=== PATIENT | male | born 1955 | race Caucasian/White ===

== ENCOUNTER 2024-04-17 00:03 | Observation (INO) | payer MEDICARE, MEDICAID, SELFPAY ==
[2024-04-17] VITALS (23 sets, daily range): BP systolic 102–136; BP diastolic 48–71; PULSE 50–83; RESP 16–23; TEMP 35.8–36.6; O2SAT 89–100; BMI 23.5
--- NOTE | ~2024-04-17 | XR_ITS ---
EXAMINATION: XR chest 1V portable DATE: 04/17/2024 01:05 INDICATION: Shortness of breath. Hypoxia. TECHNIQUE: frontal view of the chest was obtained. COMPARISON: None FINDINGS: Elevation the right hemidiaphragm with curvilinear basilar atelectasis paralleling the right hemidiap hragm. More patchy opacities in the medial left lower lung zone and small opacity lateral right midlu ng zone which could represent atelectasis or pneumonia. No pulmonary edema, pleural effusion or pneum othorax. Cardiomegaly. Of the ventriculoperitoneal shunt catheter projects across the right neck, [address] and visualized abdomen. IMPRESSION: 1. Elevation right hemidiaphragm with right basilar atelectasis. 2. Additional opacities in the retrocardiac left lower lung zone and at the lateral right midlung zon e which could represent additional atelectasis or pneumonia. 3. Cardiomegaly. Reviewed, dictated and finalized at location A. IMPRESSION: 1. Elevation right hemidiaphragm with right basilar atelectasis. 2. Additional opacities in the retrocardiac left lower lung zone and at the lat eral right midlung zone which could represent additional atelectasis or pneumon ia. 3. Cardiomegaly.
--- NOTE | 2024-04-17 00:44 | ECG_ITS ---
Test Date: 2024-04-17 01:24:15 Measurements Intervals [place] Rate: 75 P: 56 SD: 188 QRS: 14 QRSD: 89 T: 30 QT: 368 QTc: 411 Interpretive Statements SINUS RHYTHM No previous ECG available for comparison Electronically Signed On 04-17-2024 16:20:07 CDT by Kristin Bo M.D.
[2024-04-17] MEDS: IPRATROPIUM 0.5 MG/ALBUTEROL SULFATE 2.5 MG AMPUL.NEB 3 ML INHALATION ×4 (01:00→20:08)
[2024-04-17 01:17] LABS: Alveolar/Arterial O2 Gradient 40.2 mmHg; Base Excess ABG -0.8 mEq/l (+/-2.0); Device NASAL CANNULA; Fractional Inspired Oxygen 28 %; HCO3 ABG 24.6 mEq/l (22.0-26.0); Modified Allen's Test Pass; Oxygen Content ABG 19.6 %vol (16.0-22.0); Oxygen Saturation ABG 97.8 % (95.0-100.0); Oxyhemoglobin 97.6 % THb (90.0-100.0); PCO2 ABG 43.8 mmHg (35.0-45.0); PO2 ABG 107.8 mmHg (80.0-100.0); PO2 FiO2 Ratio Arterial Blood 3.85 %; Site Drawn RIGHT RADIAL; Total Hemoglobin 14.2 g/dL (12.0-18.0); pH ABG 7.368 (7.350-7.450)
--- NOTE | 2024-04-17 01:20 | ED.GENADULT ---
HPI - General Adult General Chief complaint: Upper Respiratory Infection Stated complaint: possible covid Time Seen by Provider: 04/17/24 00:31 History of Present Illness HPI narrative: Patient is a 69-year-old gentleman who presents emergency department with chief complaint of shortness of breath and cough. Patient reports that he was exposed to COVID-19 reports that he is normally on oxygen at night but is poorly compliant with this the patient was exposed to a family member with COVID-19 and reports that he has been having increasing shortness of breath and also not acting his normal self family is concerned that he has developed COVID-19 patient has also had increasing cough Related Data Allergies Allergy/AdvReac Type Severity Reaction Status Date / Time No Known Allergies Allergy Verified 04/17/24 00:04 Review of Systems Review of Systems: A 10 system review of systems was completed on the patient and is negative except for what is stated in the HPI. Nursing and ancillary documentation was reviewed. Exam Narrative: GENERAL: Well-appearing, well-nourished, and in no acute distress. HEAD: Normocephalic, atraumatic. EYES: PERRLA and EOMI. ENT: Nares clear, no rhinorrhea or epistaxis. Mucous membranes moist. NECK: Supple. CHEST: Clear to auscultation. No respiratory distress. HEART: Regular rate and rhythm. No murmur heard. Normal peripheral pulses. ABDOMEN: Soft, nontender, nondistended, normal active bowel sounds. EXTREMITIES: Normal range of motion. No edema. SKIN: Warm, dry, no rash. NEURO: No focal deficits. Alert and oriented x3. PSYCH: Normal mood and affect. Course Vital Signs Vital signs: Vital Signs Temperature 36.6 C 04/17/24 00:09 Pulse Rate 83 04/17/24 00:09 Respiratory Rate 19 04/17/24 00:09 Blood Pressure 120/71 04/17/24 00:09 Pulse Oximetry 89 L 04/17/24 00:09 Oxygen Delivery Room Air 04/17/24 00:09 Temperature 36.6 C 04/17/24 00:09 Pulse Rate 73 04/17/24 02:02 Respiratory Rate 21 H 04/17/24 02:02 Blood Pressure 120/61 04/17/24 02:02 Pulse Oximetry 100 04/17/24 02:02 Oxygen Delivery Nasal Cannula 04/17/24 00:32 Oxygen Flow Rate 2 04/17/24 00:32 Medical Decision Making Vital Signs Vital Signs: Vital Signs Temperature 36.6 C 04/17/24 00:09 Pulse Rate 83 04/17/24 00:09 Respiratory Rate 19 04/17/24 00:09 Blood Pressure 120/71 04/17/24 00:09 Pulse Oximetry 89 L 04/17/24 00:09 Oxygen Delivery Room Air 04/17/24 00:09 Temperature 36.6 C 04/17/24 00:09 Pulse Rate 73 04/17/24 02:02 Respiratory Rate 21 H 04/17/24 02:02 Blood Pressure 120/61 04/17/24 02:02 Pulse Oximetry 100 04/17/24 02:02 Oxygen Delivery Nasal Cannula 04/17/24 00:32 Oxygen Flow Rate 2 04/17/24 00:32 Lab Data 04/17/24 01:05 04/17/24 01:05 Labs: Lab Results 04/17/24 04/17/24 Range/Units 01:05 02:21 WBC 8.4 (4.5-10.0) K/mm3 RBC 4.62 (4.6-6.20) M/mm3 Hgb 14.4 (14.0-18.0) g/dL Hct 44.1 (42.0-52.0) % MCV 95.5 (80-100) fl MCH 31.2 (26-34) pg MCHC 32.7 (32-36) g/dl RDW 12.8 (11.5-14.5) % Plt Count 205 (150-375) k/mm3 MPV 11.6 H (7.4-10.4) fl Immature Gran % (Auto) 0.6 H (0-0.5) % Neut % (Auto) 65.0 (45.5-73.1) % Lymph % (Auto) 21.0 (18.3-44.2) % Villalba % (Auto) 12.6 H (2.6-8.5) % Eos % (Auto) 0.2 (0-4.4) % Baso % (Auto) 0.6 (0.2-1.2) % Lymph # (Auto) 1.77 (0.9-3.2) K/mm3 Villalba # (Auto) 1.1 H (0.1-0.6) K/mm3 Eos # (Auto) 0.0 (0-0.3) K/mm3 Baso # (Auto) 0.1 (0.0-0.1) K/mm3 Abs Immat Gran (auto) 0.05 H (0.00-0.031) K/mm3 Absolute Neuts (auto) 5.5 (1.3-6.7) K/mm3 Absolute Nucleated RBC 0.000 (0.0-0.012) K/mm3 Nucleated RBC % 0.0 (0.0-0.2) % PT 14.6 (11.1-14.7) Seconds INR 1.1 APTT 33.3 (22.3-36.8) Seconds Sodium 141 (137-145) mmol/L Potassium 3.4 (3.4-5.0) mmol/L Chlori
[2024-04-17] MEDS: dexAMETHasone SOD PHOS INJ 10 MG/ML 1 ML VIAL 6 MG IV PUSH ×2 (01:30→09:33)
[2024-04-17 01:49] LABS: Basophils Absolute Auto 0.1 K/mm3 (0.0-0.1); Basophils Percent Auto 0.6 % (0.2-1.2); Eosinophils Percent Auto 0.2 % (0-4.4); Hematocrit 44.1 % (42.0-52.0); Hemoglobin 14.4 g/dL (14.0-18.0); Immature Granulocyte Absolute 0.05 K/mm3 (0.00-0.031); Immature Granulocyte Percent A 0.6 % (0-0.5); Lymphocytes Absolute Auto 1.77 K/mm3 (0.9-3.2); Mean Corpuscular HGB Conc 32.7 g/dl (32-36); Mean Corpuscular Hemoglobin 31.2 pg (26-34); Mean Corpuscular Volume 95.5 fl (80-100); Mean Platelet Volume 11.6 fl (7.4-10.4); Monocytes Absolute Auto 1.1 K/mm3 (0.1-0.6); Monocytes Percent Auto 12.6 % (2.6-8.5); Neutrophils Absolute Auto 5.5 K/mm3 (1.3-6.7); Platelet Count Result 205 k/mm3 (150-375); Red Blood Count 4.62 M/mm3 (4.6-6.20); Red Cell Distribution Width 12.8 % (11.5-14.5); White Blood Count 8.4 K/mm3 (4.5-10.0)
[2024-04-17 02:02] LABS: Alanine Aminotransferase 12 U/L (6-50); Albumin Level 4.3 g/dL (3.5-5.1); Alkaline Phosphatase 80 U/L (38-126); Anion Gap 11 mmol/L (4-12); Aspartate Amino Transferase 18 U/L (17-59); Bilirubin,Total 0.4 mg/dL (0.2-1.3); Blood Urea Nitrogen 17 mg/dL (9-20); Calcium 9.2 mg/dL (8.4-10.2); Carbon Dioxide 27 mmol/L (22-30); Chloride 103 mmol/L (98-107); Estimated CRCL calculation 56 ml/min; Estimated Glomerular Filt Rate > 60; Glucose 103 mg/dL (65-110); Lipase 69 U/L (23-300); Magnesium 2.1 mg/dL (1.6-2.3); Potassium 3.4 mmol/L (3.4-5.0); Sodium 141 mmol/L (137-145)
[2024-04-17 02:04] LABS: INR 1.1; Prothrombin Time 14.6 Seconds (11.1-14.7)
[2024-04-17 02:05] LABS: Partial Thromboplastin Time 33.3 Seconds (22.3-36.8)
[2024-04-17 02:13] LABS: NT Pro B Type Natriuretic Pept 131 pg/mL (19.9-100); Troponin I < 0.012 ng/mL (0.000-0.034)
[2024-04-17 02:25] LABS: Influenza A QL RT-PCR Negative (Negative); Influenza B QL RT-PCR Negative (Negative); RSV RNA, RT-PCR Negative (Negative); SARS-CoV-2 RNA PCR Positive (Negative)
--- NOTE | 2024-04-17 02:26 | PC.NURSE ---
Patient stuck multiple times by multiple RN's and provider. phlebotomy called to obtain remaining labs.
[2024-04-17 02:34] LABS: Add Urine Microscopic? YES; Appearance Urine Clear (Clear); Bacteria Urine None Seen /hpf; Bilirubin Urine Negative (Negative); Blood Urine Negative (Negative); Color Urine Yellow (Yellow); Glucose Urine UA Negative (Negative); Ketones Urine Trace mg/dL (Negative); Leukocyte Esterase Ur Negative LEU/UL (Negative); Nitrate Urine Negative (Negative); Non Pathogenic Casts 0-2; Protein Urine Trace mg/dL (Negative); RBC Urine 0-2 /hpf (0-2); Specific Grav Ur 1.036 (1.001-1.035); Squamous Epithelial Cell Urine None Seen /hpf (Few); Urobilinogen Urine 0.2 mg/dL (<2.0); WBC Urine 0-5 /hpf (0-3); pH Urine 5.5 (5.0-9.0)
--- NOTE | 2024-04-17 02:58 | PM.IMHP ---
H&P: HPI History of Present Illness Date/Time: 04/17/24 02:58 Chief Complaint: shortness of breath Narrative: This is a 69-year-old male with past medical history significant for traumatic brain injury, chronic respiratory failure on chronic supplemental oxygen and with no compliance, Alzheimer's dementia. Patient was brought to emergency room after complaining of shortness of breath and exposure to COVID-19 patient was tested positive for COVID-19 in emergency room he had a low oxygen saturation in the 80s requiring supplemental oxygen by nasal cannula. Patient had been in his usual state of health up until this point. Most of the history has been obtained from family member who is at bedside. EXAMINATION: XR chest 1V portable DATE: 04/17/2024 01:05 INDICATION: Shortness of breath. Hypoxia. TECHNIQUE: frontal view of the chest was obtained. COMPARISON: None FINDINGS: Elevation the right hemidiaphragm with curvilinear basilar atelectasis paralleling the right hemidiaphragm. More patchy opacities in the medial left lower lung zone and small opacity lateral right midlung zone which could represent atelectasis or pneumonia. No pulmonary edema, pleural effusion or pneumothorax. Cardiomegaly. Of the ventriculoperitoneal shunt catheter projects across the right neck, chest and visualized abdomen. IMPRESSION: 1. Elevation right hemidiaphragm with right basilar atelectasis. 2. Additional opacities in the retrocardiac left lower lung zone and at the lateral right midlung zone which could represent additional atelectasis or pneumonia. 3. Cardiomegaly. Review of Systems Review of Systems: shortness of breath [facility] Social History Social History Smoking status: Former smoker Alcohol intake: former Substance use: unknown Do You Feel Safe in your Home?: Yes Lack of Transportation: No Lack of Food: Never True Current Housing: I Have Housing Concerned About Future Housing: No Difficulty Paying Gas/Electric Bills: No Difficulty Paying for Meds: No Currently Unemployed: No Education: Don't Know Difficulty w/ Childcare or Family Care: No Spiritual care concerns: No Meds Home Medications and Allergies Home Medications Medication Instructions Recorded Confirmed Type Mucinex DM 600 mg Q12H 04/17/24 04/17/24 History aspirin 81 mg tablet,delayed 81 mg DAILY 04/17/24 04/17/24 History release carvedilol 6.25 mg tablet 6.25 mg BID 04/17/24 04/17/24 History furosemide 20 mg tablet 20 mg DAILY PRN Edema 04/17/24 04/17/24 History levetiracetam 500 mg tablet 500 mg PO BID 04/17/24 04/17/24 History losartan 50 mg tablet 50 mg DAILY 04/17/24 04/17/24 History pantoprazole 40 mg tablet,delayed 40 mg PO DAILY 04/17/24 04/17/24 History release Allergies Allergy/AdvReac Type Severity Reaction Status Date / Time No Known Allergies Allergy Verified 04/17/24 00:04 Vital Signs Vital Signs - 24 hr 04/17/24 00:09 04/17/24 00:32 04/17/24 01:01 Temperature 97.9 F Pulse Rate 83 80 Respiratory Rate 19 23 H Blood Pressure 120/71 Pulse Oximetry 89 L 99 Oxygen Delivery Room Air Nasal Cannula Oxygen Flow Rate 2 04/17/24 01:19 04/17/24 02:00 04/17/24 02:02 Temperature Pulse Rate 73 74 73 Respiratory Rate 22 H 19 21 H Blood Pressure 120/61 Pulse Oximetry 98 100 Oxygen Delivery Oxygen Flow Rate Exam Narrative: patient is laying in a stretcher Const: General: cooperative, comfortable, no acute distress, well developed, alert, awake, ill appearing chronically, average body habitus and well nourished Nutritional Appearance: average body habitus Orientation/consciousness: patient oriented x3 HENMT: Head: normal to inspection, normocephalic and atraumatic Ears: hearing grossly normal bilaterally Face/Nose/Sinus: normal facial exam Face and sinus: normal facial exam Eyes: General: appearance nor
[2024-04-17 03:10] LABS: Lactic Acid Reflex 0.7 mmol/L (0.7-2.0)
[2024-04-17 03:29] LABS: Procalcitonin 0.1 ng/mL
--- NOTE | 2024-04-17 04:27 | ADMGEN ---
This patient, Reginald Haile, was admitted to Medical Room 247-. Patient/family oriented to hospital policies and general routines including ID bracelet, bed and alarms, visiting hours, pain management, procedures, bathroom and other care routines, personal items, smoking policy, room service/diet, and visiting hours. Information on how to activate the Rapid Response Team has been discussed. Patient/Family are encouraged to report perceived risks to care and to ask questions if they do not understand what they are told or what they should do.
[2024-04-17 05:38] LABS: Troponin I < 0.012 ng/mL (0.000-0.034)
--- NOTE | 2024-04-17 07:31 | PM.IMPN ---
Progress Note: A&P Assessment and Plan (1) COVID-19: Code(s): U07.1 - COVID-19 Status: Acute (2) Hypoxic respiratory failure: Code(s): J96.91 - Respiratory failure, unspecified with hypoxia Status: Acute Plan (1) COVID-19: Code(s): U07.1 - COVID-19 Status: Acute Assessment and Plan: admit to [facility] patient started on Decadron 04/17 Chest x-ray showed Additional opacities in the retrocardiac left lower lung zone and at the lateral right midlung zone, patient also has hypoxemia, suspecting pneumonia due to your infection and COVID infection start remdesivir, azithromycin and ceftriaxone, continue Decadron IV Hypoxic respiratory failure: Code(s): J96.91 - Respiratory failure, unspecified with hypoxia Status: Acute Assessment and Plan: on supplemental oxygen by nasal cannula 2 L continuous pulse ox start DuoNeb, albuterol nebulizer p.r.n. cardiomegaly on chest x-ray Follow-up BMP and echocardiogram Subjective Date/time seen: 04/17/24 07:31 Interval history: patient has low temperature 96.5?, tachypnea, 2 L oxygen, patient feels better today, patient still confused, able to answer questions, no obvious distress Exam Narrative: GENERAL: Pleasant, in no acute distress. Well-nourished. - EYES: EOMI. Anicteric. - HENT: Moist mucous membranes. - LUNGS: Clear to auscultation bilaterally, coarse breath sound bilaterally - CARDIOVASCULAR: Regular rate and rhythm. No murmur. No JVD. - ABDOMEN: Soft, non-tender and non-distended. No palpable masses. - EXTREMITIES: No edema. Peripheral pulses 2+. Non-tender. - NEUROLOGIC: No focal neurological deficits. moving all extremities, - PSYCHIATRIC: Awake, Alert and not oriented x 3. Appropriate mood and affect. - SKIN: No rashes or lesions. Warm. - LYMPH: No cervical lymphadenopathy. Objective Data Vital Signs Vital Signs: Vital Signs - 24 hr 04/17/24 00:09 04/17/24 00:32 04/17/24 01:01 Temperature 97.9 F Pulse Rate 83 80 Respiratory Rate 19 23 H Blood Pressure 120/71 Pulse Oximetry 89 L 99 Oxygen Delivery Room Air Nasal Cannula Oxygen Flow Rate 2 04/17/24 01:19 04/17/24 02:00 04/17/24 02:02 Temperature Pulse Rate 73 74 73 Respiratory Rate 22 H 19 21 H Blood Pressure 120/61 Pulse Oximetry 98 100 Oxygen Delivery Oxygen Flow Rate 04/17/24 03:17 04/17/24 04:11 04/17/24 04:00 Temperature 97.8 F 96.5 F L Pulse Rate 61 63 58 L Respiratory Rate 19 20 Blood Pressure 136/63 103/48 L Pulse Oximetry 97 94 Oxygen Delivery Oxygen Flow Rate 04/17/24 05:00 Temperature Pulse Rate Respiratory Rate Blood Pressure Pulse Oximetry Oxygen Delivery Nasal Cannula Oxygen Flow Rate 2 Intake/Output Intake/Output: Intake & Output 04/14/24 04/15/24 04/16/24 04/17/24 23:59 23:59 23:59 23:59 Intake Total 100 Balance 100 Meds/Results Medications: Active Medications Generic Name Dose Route Start Last Admin Trade Name Freq PRN Reason Stop Dose Admin Albuterol/Ipratropium 3 ml 04/17/24 08:00 Ipratropium 0.5 Mg/Albuterol Sulfate 2.5 Mg Ampul.Neb 3 Ml INHALATION Q6HRT [facility] Dexamethasone Sodium Phosphate 6 mg 04/17/24 09:00 Dexamethasone Sod Phos Inj 10 Mg/Ml 1 Ml Vial IV PUSH 04/26/24 09:01 DAILY [facility] Radiology Results: ITS Impressions Chest X-Ray 04/17/24 07:13 IMPRESSION: 1. Elevation right hemidiaphragm with right basilar atelectasis. 2. Additional opacities in the retrocardiac left lower lung zone and at the lateral right midlung zone which could represent additional atelectasis or pneumonia. 3. Cardiomegaly. Labs Labs: Laboratory Results - last 24 hr 04/17/24 04/17/24 04/17/24 01:02 01:05 02:21 WBC 8.4 RBC 4.62 Hgb 14.4 Hct 44.1 MCV 95.5 MCH 31.2 MCHC 32.7 RDW 12.8 Plt Count 205 MPV 11.6 H Immature Gran % (Auto) 0.6 H Neut %
--- NOTE | 2024-04-17 07:41 | ECHO_ITS ---
Patient Info Name: Reginald Haile Age: 69 years : 1955 Gender: Male Ht: 68 in Wt: 159 lbs BSA: 1.87 m2 HR: 56 bpm Heart Rhythm: Sinus Rhythm Technical Quality: Fair Exam Date: 04/17/2024 12:01 PM Exam Location: Echo Lab Patient Status: Inpatient Admit Date: 04/17/2024 Staff Ordering Physician: Zaid Cole MD Editing Intern: Cameron Romero RDCS Attending Provider: Kendell Elam MD Exam Type: CA echo doppler color flow Study Info Indications - dyspnea, cardiomegaly Complete two-dimensional, color flow and Doppler transthoracic echocardiogram is performed. Summary 1. Complete two-dimensional, color flow and Doppler transthoracic echocardiogram is performed. 2. Left ventricular systolic function is normal, estimated at 50-55%. 3. The left ventricular diastolic function is grade II diastolic dysfunction. 4. Hypokinesis of anteroseptum. 5. There is trace mitral valve regurgitation. 6. There is trace tricuspid valve regurgitation. 7. No pulmonary hypertension, estimated pulmonary arterial systolic pressure is 20 mmHg. Left Ventricle Left ventricular chamber dimension is normal. Left ventricular systolic function is normal, estimated at 50-55%. There is no increased left ventricular wall thickness. The left ventricular diastolic function is grade II diastolic dysfunction. Right Ventricle Right ventricular chamber dimension is normal. Right ventricular systolic function is normal. Left Atria Left atrial chamber dimension is normal. Right Atria Right atrial chamber dimension is normal. Atrial Septum Intact interatrial septum visualized by 2D imaging. Aortic Valve The aortic valve is trileaflet. There is mild aortic valve sclerosis. There is no aortic valve stenosis. There is no aortic valve regurgitation. Pulmonic Valve The pulmonic valve is normal. There is no pulmonic valve stenosis. There is no pulmonic regurgitation. Mitral Valve The mitral valve has normal leaflets. There is no mitral valve stenosis. There is trace mitral valve regurgitation. Tricuspid Valve The tricuspid valve leaflets are normal. There is no significant tricuspid valve stenosis. There is trace tricuspid valve regurgitation. No pulmonary hypertension, estimated pulmonary arterial systolic pressure is 20 mmHg. Pericardium/Pleural The pericardium appears normal. There is no pericardial effusion. Aorta The aortic root size at the sinus of Valsalva is normal. The prox ascending aorta size is normal. Left Ventricular Outflow Tract Name Value Normal LVOT 2D LVOT Diameter 2.0 cm LVOT Doppler LVOT Peak Gradient 2 mmHg LVOT Mean Gradient 1 mmHg LVOT VTI 15 cm LVOT VTI/AV VTI Ratio 0.7 LVOT Stroke Volume 48 ml LVOT CO 3.0 l/min LVOT CI 1.6 l/min/m2 Pulmonic Valve Name Value Normal PV Doppler -------
[2024-04-17 09:06] LABS: Basophils Percent Auto 0.4 % (0.2-1.2); Hematocrit 43.5 % (42.0-52.0); Hemoglobin 13.6 g/dL (14.0-18.0); Immature Granulocyte Absolute 0.03 K/mm3 (0.00-0.031); Immature Granulocyte Percent A 0.3 % (0-0.5); Lymphocytes Absolute Auto 1.22 K/mm3 (0.9-3.2); Lymphocytes Percent Auto 12.9 % (18.3-44.2); Mean Corpuscular HGB Conc 31.3 g/dl (32-36); Mean Corpuscular Hemoglobin 31.1 pg (26-34); Mean Corpuscular Volume 99.5 fl (80-100); Mean Platelet Volume 11.6 fl (7.4-10.4); Monocytes Absolute Auto 0.4 K/mm3 (0.1-0.6); Monocytes Percent Auto 4.4 % (2.6-8.5); Neutrophils Absolute Auto 7.7 K/mm3 (1.3-6.7); Nucleated Red Blood Cells Perc 0.5 % (0.0-0.2); Platelet Count Result 164 k/mm3 (150-375); Red Blood Count 4.37 M/mm3 (4.6-6.20); Red Cell Distribution Width 12.9 % (11.5-14.5); White Blood Count 9.5 K/mm3 (4.5-10.0)
[2024-04-17 09:10] LABS: Anion Gap 8 mmol/L (4-12); Blood Urea Nitrogen 18 mg/dL (9-20); Calcium 9.2 mg/dL (8.4-10.2); Carbon Dioxide 28 mmol/L (22-30); Chloride 104 mmol/L (98-107); Estimated CRCL calculation 62 ml/min; Estimated Glomerular Filt Rate > 60; Glucose 130 mg/dL (65-110); Potassium 3.9 mmol/L (3.4-5.0); Sodium 140 mmol/L (137-145)
[2024-04-17 09:24] LABS: NT Pro B Type Natriuretic Pept 94 pg/mL (19.9-100)
[2024-04-17] MEDS: cefTRIAXone 2 GM/NS 100 ML 2 GM/100 ML BAG IVPB (09:34)
[2024-04-17] MEDS: REMDESIVIR 200 MG/NS 250 ML 200 MG/250 ML BAG 250 MG IVPB (10:26)
[2024-04-17] MEDS: AZITHROMYCIN 500 MG/NS 250 ML 500 MG/250 ML BAG 250 MG IVPB (11:47)
[2024-04-17] MEDS: levETIRAcetam 500 MG TABLET PO ×2 (13:02→21:07)
[2024-04-17] MEDS: FUROSEMIDE 20 MG TABLET PO (13:02)
[2024-04-17] MEDS: PANTOPRAZOLE 40 MG TABLET PO (13:02)
[2024-04-18] VITALS (14 sets, daily range): BP systolic 112–127; BP diastolic 71–79; PULSE 64–94; RESP 18–22; TEMP 36.3–36.4; O2SAT 92–100
[2024-04-18] MEDS: IPRATROPIUM 0.5 MG/ALBUTEROL SULFATE 2.5 MG AMPUL.NEB 3 ML INHALATION ×4 (01:55→20:36)
[2024-04-18 05:05] LABS: Basophils Percent Auto 0.2 % (0.2-1.2); Hematocrit 48.4 % (42.0-52.0); Hemoglobin 15.3 g/dL (14.0-18.0); Immature Granulocyte Absolute 0.07 K/mm3 (0.00-0.031); Immature Granulocyte Percent A 0.4 % (0-0.5); Lymphocytes Absolute Auto 1.15 K/mm3 (0.9-3.2); Mean Corpuscular HGB Conc 31.6 g/dl (32-36); Mean Corpuscular Hemoglobin 30.3 pg (26-34); Mean Corpuscular Volume 95.8 fl (80-100); Mean Platelet Volume 11.2 fl (7.4-10.4); Monocytes Absolute Auto 1.1 K/mm3 (0.1-0.6); Monocytes Percent Auto 6.9 % (2.6-8.5); Neutrophils Percent Auto 85.5 % (45.5-73.1); Platelet Count Result 196 k/mm3 (150-375); Red Blood Count 5.05 M/mm3 (4.6-6.20); Red Cell Distribution Width 12.9 % (11.5-14.5); White Blood Count 16.3 K/mm3 (4.5-10.0)
[2024-04-18 05:57] LABS: Anion Gap 12 mmol/L (4-12); Blood Urea Nitrogen 20 mg/dL (9-20); Calcium 9.4 mg/dL (8.4-10.2); Carbon Dioxide 28 mmol/L (22-30); Chloride 102 mmol/L (98-107); Estimated CRCL calculation 68 ml/min; Estimated Glomerular Filt Rate > 60; Glucose 77 mg/dL (65-110); Sodium 142 mmol/L (137-145)
--- NOTE | 2024-04-18 07:40 | PM.IMPN ---
Progress Note: A&P Assessment and Plan (1) COVID-19: Code(s): U07.1 - COVID-19 Status: Acute (2) Hypoxic respiratory failure: Code(s): J96.91 - Respiratory failure, unspecified with hypoxia Status: Acute Plan COVID-19: Code(s): U07.1 - COVID-19 Status: Acute Assessment and Plan: admit to med tele patient started on Decadron 04/17 Chest x-ray showed Additional opacities in the retrocardiac left lower lung zone and at the lateral right midlung zone, patient also has hypoxemia, suspecting pneumonia due to your infection and COVID infection started remdesivir, azithromycin and ceftriaxone on 04/17 continue remdesivir, azithromycin, ceftriaxone and Decadron today Hypoxic respiratory failure: Code(s): J96.91 - Respiratory failure, unspecified with hypoxia Status: Acute Assessment and Plan: on supplemental oxygen by nasal cannula 2 L continuous pulse ox start DuoNeb, albuterol nebulizer p.r.n. now pt is on 2 l o2 hypokalemia potassium 3.0 replete potassium chloride 40 meq p.o. 20 meq IV cardiomegaly on chest x-ray Follow-up BMP and echocardiogram 1. Complete two-dimensional, color flow and Doppler transthoracic echocardiogram is performed. 2. Left ventricular systolic function is normal, estimated at 50-55%. 3. The left ventricular diastolic function is grade II diastolic dysfunction. 4. Hypokinesis of anteroseptum. 5. There is trace mitral valve regurgitation. 6. There is trace tricuspid valve regurgitation. 7. No pulmonary hypertension, estimated pulmonary arterial systolic pressure is 20 mmHg. EKG shows sinus rhythm, no specific ST or T-wave changes follow-up per PCP may discharge patient in 1-2 days if condition continues to improve Subjective Date/time seen: 04/18/24 07:40 Interval history: I saw examined patient today, patient condition continued to improve, patient was eating breakfast in the chair. patient mental status improving, able to answer questions, no obvious distress Exam Narrative: GENERAL: Pleasant, in no acute distress. Well-nourished. - EYES: EOMI. Anicteric. - HENT: Moist mucous membranes. - LUNGS: Clear to auscultation bilaterally, coarse breath sound bilaterally - CARDIOVASCULAR: Regular rate and rhythm. No murmur. No JVD. - ABDOMEN: Soft, non-tender and non-distended. No palpable masses. - EXTREMITIES: No edema. Peripheral pulses 2+. Non-tender. - NEUROLOGIC: No focal neurological deficits. moving all extremities, - PSYCHIATRIC: Awake, Alert and not oriented x 3. Appropriate mood and affect. - SKIN: No rashes or lesions. Warm. - LYMPH: No cervical lymphadenopathy. Objective Data Vital Signs Vital Signs: Vital Signs - 24 hr 04/17/24 08:12 04/17/24 08:12 04/17/24 08:20 Temperature Pulse Rate 53 L 56 L Respiratory Rate 16 16 Blood Pressure Pulse Oximetry 96 Oxygen Delivery Nasal Cannula Oxygen Flow Rate 2 Fraction of Inspired Oxygen 28 04/17/24 08:15 04/17/24 13:54 04/17/24 13:54 Temperature Pulse Rate 64 66 Respiratory Rate 18 16 Blood Pressure Pulse Oximetry 97 96 Oxygen Delivery Nasal Cannula Nasal Cannula Oxygen Flow Rate 2 2 Fraction of Inspired Oxygen 28 28 04/17/24 14:01 04/17/24 08:00 04/17/24 12:00 Temperature Pulse Rate 62 50 L 53 L Respiratory Rate 16 Blood Pressure Pulse Oximetry Oxygen Delivery Oxygen Flow Rate Fraction of Inspired Oxygen 04/17/24 14:00 04/17/24 16:00 04/17/24 20:00 Temperature 97.5 F L Pulse Rate 69 67 73 Respiratory Rate 20 Blood Pressure 102/64 Pulse Oximetry 95 Oxygen Delivery Oxygen Flow Rate Fraction of Inspired Oxygen 04/17/24 22:00 04/17/24 20:00 04/17/24 20:20 Temperature 97.3 F L Pulse Rate 68 Respiratory Rate 18 Blood Pressure 106/66 Pulse Oximetry 99 96 96 Oxygen Delivery Nasal Cannula Nasal Cannula Oxygen Flow R
[2024-04-18] MEDS: POTASSIUM CHLORIDE 20 MEQ PACKET (FOR LIQUID) 40 MEQ PO (08:52)
[2024-04-18] MEDS: PANTOPRAZOLE 40 MG TABLET PO (08:55)
[2024-04-18] MEDS: ASPIRIN 81 MG ENTERIC TABLET PO (08:55)
[2024-04-18] MEDS: levETIRAcetam 500 MG TABLET PO ×2 (08:56→21:21)
[2024-04-18] MEDS: dexAMETHasone SOD PHOS INJ 10 MG/ML 1 ML VIAL 6 MG IV PUSH (10:58)
[2024-04-18] MEDS: cefTRIAXone 2 GM/NS 100 ML 2 GM/100 ML BAG IVPB (10:59)
[2024-04-18] MEDS: REMDESIVIR 100 MG/NS 250 ML 100 MG/250 ML BAG 250 MG IVPB (11:36)
[2024-04-18] MEDS: AZITHROMYCIN 500 MG/NS 250 ML 500 MG/250 ML BAG 250 MG IVPB (12:34)
[2024-04-18] MEDS: KCL 20MEQ/0.9% SOD CHL 1,000 ML 100 ML IV CONT (13:43)
--- NOTE | 2024-04-18 14:06 | PC.NURSE ---
Spoke with greenhouse grower regarding plurx specimens. The procedure cannot be done on the floor per policy. maintenance and utilities supervisor recommended requesting thoracentesis for testing. Will call provider.
--- NOTE | 2024-04-18 17:19 | PC.NURSE ---
Patient arrived to unit from ICU.
[2024-04-19] VITALS (14 sets, daily range): BP systolic 113–127; BP diastolic 47–71; PULSE 50–101; RESP 18–20; TEMP 36.4–36.6; O2SAT 91–95
[2024-04-19] MEDS: KCL 20MEQ/0.9% SOD CHL 1,000 ML 100 ML IV CONT (00:19)
[2024-04-19] MEDS: IPRATROPIUM 0.5 MG/ALBUTEROL SULFATE 2.5 MG AMPUL.NEB 3 ML INHALATION ×4 (02:16→19:28)
[2024-04-19] MEDS: SALINE LOCK FLUSH 10 ML IV PUSH ×3 (05:09→20:56)
[2024-04-19 05:24] LABS: Basophils Percent Auto 0.1 % (0.2-1.2); Hemoglobin 11.8 g/dL (14.0-18.0); Immature Granulocyte Absolute 0.04 K/mm3 (0.00-0.031); Immature Granulocyte Percent A 0.4 % (0-0.5); Lymphocytes Absolute Auto 1.52 K/mm3 (0.9-3.2); Lymphocytes Percent Auto 15.5 % (18.3-44.2); Mean Corpuscular HGB Conc 31.9 g/dl (32-36); Mean Corpuscular Hemoglobin 30.6 pg (26-34); Mean Corpuscular Volume 95.9 fl (80-100); Mean Platelet Volume 11.1 fl (7.4-10.4); Monocytes Absolute Auto 0.8 K/mm3 (0.1-0.6); Monocytes Percent Auto 8.5 % (2.6-8.5); Neutrophils Absolute Auto 7.4 K/mm3 (1.3-6.7); Neutrophils Percent Auto 75.5 % (45.5-73.1); Platelet Count Result 166 k/mm3 (150-375); Red Blood Count 3.86 M/mm3 (4.6-6.20); Red Cell Distribution Width 13.1 % (11.5-14.5); White Blood Count 9.8 K/mm3 (4.5-10.0)
[2024-04-19 05:39] LABS: Anion Gap 6 mmol/L (4-12); Blood Urea Nitrogen 18 mg/dL (9-20); Calcium 8.2 mg/dL (8.4-10.2); Carbon Dioxide 28 mmol/L (22-30); Chloride 108 mmol/L (98-107); Estimated CRCL calculation 76 ml/min; Estimated Glomerular Filt Rate > 60; Glucose 100 mg/dL (65-110); Sodium 142 mmol/L (137-145)
[2024-04-19] MEDS: cefTRIAXone 2 GM/NS 100 ML 2 GM/100 ML BAG IVPB (08:34)
[2024-04-19] MEDS: dexAMETHasone SOD PHOS INJ 10 MG/ML 1 ML VIAL 6 MG IV PUSH (08:47)
[2024-04-19] MEDS: PANTOPRAZOLE 40 MG TABLET PO (08:48)
[2024-04-19] MEDS: ASPIRIN 81 MG ENTERIC TABLET PO (08:48)
[2024-04-19] MEDS: levETIRAcetam 500 MG TABLET PO ×2 (08:48→20:56)
[2024-04-19] MEDS: REMDESIVIR 100 MG/NS 250 ML 100 MG/250 ML BAG 250 MG IVPB (09:13)
--- NOTE | 2024-04-19 11:32 | PM.IMPN ---
Progress Note: A&P Assessment and Plan (1) COVID-19: Code(s): U07.1 - COVID-19 Status: Acute (2) Hypoxic respiratory failure: Code(s): J96.91 - Respiratory failure, unspecified with hypoxia Status: Acute Plan 69-year-old male with past medical history significant for traumatic brain injury, chronic respiratory failure on chronic supplemental oxygen and with no compliance, Alzheimer's dementia. Patient was brought to emergency room after complaining of shortness of breath and exposure to COVID-19 patient was tested positive for COVID-19 in emergency room he had a low oxygen saturation in the 80s requiring supplemental oxygen by nasal cannula. 1. Acute on chronic hypoxic respiratory failure: Secondary to COVID-19 Continue with O2 support, currently on room air Chest x-ray showed Additional opacities in the retrocardiac left lower lung zone and at the lateral right midlung zone Continue with Decadron for 10 days Continue with remdesivir Continue with ceftriaxone, azithromycin Continue with albuterol as needed 2. History of seizure: Continue with Keppra 3. Code status: Full 4.DVT prophylaxis: Heparin subQ 5.Disposition: Pending improvement Time Spent With Patient Time with patient: 15 - 25 minutes Subjective Date/time seen: 04/19/24 11:32 Interval history: No acute events overnight, currently on room air Review of Systems Review of Systems: All systems reviewed & are unremarkable except as noted in HPI and below Exam Narrative: GENERAL: Pleasant, in no acute distress. Well-nourished. - EYES: EOMI. Anicteric. - HENT: Moist mucous membranes. - LUNGS: Clear to auscultation bilaterally, coarse breath sound bilaterally - CARDIOVASCULAR: Regular rate and rhythm. No murmur. No JVD. - ABDOMEN: Soft, non-tender and non-distended. No palpable masses. - EXTREMITIES: No edema. Peripheral pulses 2+. Non-tender. - NEUROLOGIC: No focal neurological deficits. moving all extremities, - PSYCHIATRIC: Awake, Alert and not oriented x 3. Appropriate mood and affect. - SKIN: No rashes or lesions. Warm. - LYMPH: No cervical lymphadenopathy. Objective Data Vital Signs Vital Signs: Vital Signs - 24 hr 04/18/24 13:37 04/18/24 13:37 04/18/24 13:43 Temperature Pulse Rate 84 94 Respiratory Rate 20 20 Blood Pressure Pulse Oximetry 92 Oxygen Delivery Room Air Oxygen Flow Rate Fraction of Inspired Oxygen 21 04/18/24 14:00 04/18/24 20:36 04/18/24 20:40 Temperature 97.6 F Pulse Rate 81 83 Respiratory Rate 22 H 19 Blood Pressure 127/71 Pulse Oximetry 96 94 Oxygen Delivery Nasal Cannula Oxygen Flow Rate 2 Fraction of Inspired Oxygen 28 04/18/24 20:46 04/18/24 22:00 04/19/24 02:16 Temperature 97.6 F Pulse Rate 83 64 64 Respiratory Rate 19 18 19 Blood Pressure 112/79 Pulse Oximetry 100 Oxygen Delivery Oxygen Flow Rate Fraction of Inspired Oxygen 04/19/24 02:22 04/19/24 06:00 04/19/24 07:38 Temperature 97.8 F Pulse Rate 64 101 H Respiratory Rate 20 18 Blood Pressure 127/71 Pulse Oximetry 94 95 Oxygen Delivery Nasal Cannula Oxygen Flow Rate 2 Fraction of Inspired Oxygen 04/19/24 07:38 04/19/24 07:52 04/19/24 08:48 Temperature Pulse Rate 50 L 52 L Respiratory Rate 20 20 Blood Pressure Pulse Oximetry Oxygen Delivery Room Air Oxygen Flow Rate Fraction of Inspired Oxygen Intake/Output Intake/Output: Intake & Output 04/16/24 04/17/24 04/18/24 04/19/24 23:59 23:59 23:59 23:59 Intake Total 1010 2060 240 Output Total 150 395 Balance 860 1665 240 Meds/Results Medications: Active Medications Generic Name Dose Route Start Last Admin Trade Name Freq PRN Reason Stop Dose Admin Acetaminophen 650 mg 04/17/24 20:20 Acetaminophen 325 Mg Tablet PO Q6H PRN Mild Pain (1-3) or Fever Albuterol 2.5 mg 04/17/24 07:41 Albuterol Sulfate Neb 2.5 Mg/3 Ml Inh NE
[2024-04-19] MEDS: AZITHROMYCIN 250 MG TABLET 500 MG PO (12:59)
[2024-04-19] MEDS: HEPARIN SODIUM 5,000 UNITS/ML VIAL 5000 UNITS SUB-Q ×2 (13:00→20:56)
[2024-04-20] VITALS (7 sets, daily range): BP systolic 120–133; BP diastolic 51–58; PULSE 54–91; RESP 18–20; TEMP 36.6–37.1; O2SAT 90–100
[2024-04-20] MEDS: SALINE LOCK FLUSH 10 ML IV PUSH ×3 (05:17→21:15)
[2024-04-20] MEDS: HEPARIN SODIUM 5,000 UNITS/ML VIAL 5000 UNITS SUB-Q ×3 (05:17→21:08)
[2024-04-20 05:36] LABS: Basophils Percent Auto 0.1 % (0.2-1.2); Hematocrit 36.6 % (42.0-52.0); Hemoglobin 11.4 g/dL (14.0-18.0); Immature Granulocyte Absolute 0.02 K/mm3 (0.00-0.031); Immature Granulocyte Percent A 0.2 % (0-0.5); Lymphocytes Absolute Auto 1.89 K/mm3 (0.9-3.2); Lymphocytes Percent Auto 22.4 % (18.3-44.2); Mean Corpuscular HGB Conc 31.1 g/dl (32-36); Mean Corpuscular Hemoglobin 29.8 pg (26-34); Mean Corpuscular Volume 95.8 fl (80-100); Mean Platelet Volume 11.7 fl (7.4-10.4); Monocytes Absolute Auto 0.9 K/mm3 (0.1-0.6); Monocytes Percent Auto 10.5 % (2.6-8.5); Neutrophils Absolute Auto 5.6 K/mm3 (1.3-6.7); Neutrophils Percent Auto 66.8 % (45.5-73.1); Platelet Count Result 155 k/mm3 (150-375); Red Blood Count 3.82 M/mm3 (4.6-6.20); White Blood Count 8.5 K/mm3 (4.5-10.0)
[2024-04-20 05:47] LABS: Anion Gap 5 mmol/L (4-12); Blood Urea Nitrogen 15 mg/dL (9-20); Calcium 8.5 mg/dL (8.4-10.2); Carbon Dioxide 29 mmol/L (22-30); Chloride 106 mmol/L (98-107); Estimated CRCL calculation 76 ml/min; Estimated Glomerular Filt Rate > 60; Glucose 107 mg/dL (65-110); Potassium 3.5 mmol/L (3.4-5.0); Sodium 140 mmol/L (137-145)
[2024-04-20] MEDS: IPRATROPIUM 0.5 MG/ALBUTEROL SULFATE 2.5 MG AMPUL.NEB 3 ML INHALATION ×2 (07:38→13:19)
[2024-04-20] MEDS: ASPIRIN 81 MG ENTERIC TABLET PO (08:01)
[2024-04-20] MEDS: PANTOPRAZOLE 40 MG TABLET PO (08:01)
[2024-04-20] MEDS: AMOXICILLIN/CLAVULANATE K 875-125 MG TAB 1 TABLET PO ×2 (08:01→21:07)
[2024-04-20] MEDS: levETIRAcetam 500 MG TABLET PO ×2 (08:01→21:07)
[2024-04-20] MEDS: dexAMETHasone SOD PHOS INJ 10 MG/ML 1 ML VIAL 6 MG IV PUSH (08:01)
[2024-04-20] MEDS: POTASSIUM CHLORIDE 20 MEQ ER TABLET 40 MEQ PO (09:35)
[2024-04-20] MEDS: REMDESIVIR 100 MG/NS 250 ML 100 MG/250 ML BAG 250 MG IVPB (09:37)
--- NOTE | 2024-04-20 10:48 | PM.IMPN ---
Progress Note: A&P Assessment and Plan (1) COVID-19: Code(s): U07.1 - COVID-19 Status: Acute Assessment and Plan: Continue remdesivir and dexamethasone, patient currently on room air, plan to discharge tomorrow Losartan has been on hold due to lower blood pressures, consider discontinuation on discharge (2) Hypoxic respiratory failure: Code(s): J96.91 - Respiratory failure, unspecified with hypoxia Status: Acute Assessment and Plan: See above Plan 69-year-old male with past medical history significant for traumatic brain injury, chronic respiratory failure on chronic supplemental oxygen and with no compliance, Alzheimer's dementia. Patient was brought to emergency room after complaining of shortness of breath and exposure to COVID-19 patient was tested positive for COVID-19 in emergency room he had a low oxygen saturation in the 80s requiring supplemental oxygen by nasal cannula. 1. Acute on chronic hypoxic respiratory failure: Secondary to COVID-19 Continue with O2 support, currently on room air Chest x-ray showed Additional opacities in the retrocardiac left lower lung zone and at the lateral right midlung zone Continue with Decadron for 10 days Continue with remdesivir Continue with ceftriaxone, azithromycin Continue with albuterol as needed 2. History of seizure: Continue with Keppra 3. Code status: Full 4.DVT prophylaxis: Heparin subQ 5.Disposition: Discharge tomorrow Time Spent With Patient Time with patient: 25 - 35 minutes Subjective Date/time seen: 04/20/24 10:48 Interval history: No acute events overnight, currently on room air. 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 We will plan to continue remdesivir tomorrow and discharge tomorrow. Review of Systems Review of Systems: All systems reviewed & are unremarkable except as noted in HPI and below Exam Narrative: GENERAL: Pleasant, in no acute distress. Well-nourished. - EYES: EOMI. Anicteric. - HENT: Moist mucous membranes. - LUNGS: Clear to auscultation bilaterally, coarse breath sound bilaterally - CARDIOVASCULAR: Regular rate and rhythm. No murmur. No JVD. - ABDOMEN: Soft, non-tender and non-distended. No palpable masses. - EXTREMITIES: No edema. Peripheral pulses 2+. Non-tender. - NEUROLOGIC: No focal neurological deficits. moving all extremities, - PSYCHIATRIC: Awake, Alert and not oriented x 3. Appropriate mood and affect. - SKIN: No rashes or lesions. Warm. - LYMPH: No cervical lymphadenopathy. Objective Data Vital Signs Vital Signs: Vital Signs - 24 hr 04/19/24 13:13 04/19/24 13:25 04/19/24 14:00 Temperature 36.5 C Pulse Rate 59 L 61 93 Respiratory Rate 20 20 20 Blood Pressure 113/47 L Pulse Oximetry 91 Oxygen Delivery Oxygen Flow Rate Fraction of Inspired Oxygen 04/19/24 15:11 04/19/24 19:28 04/19/24 19:33 Temperature Pulse Rate 60 Respiratory Rate 18 Blood Pressure Pulse Oximetry 93 Oxygen Delivery Room Air Room Air Oxygen Flow Rate Fraction of Inspired Oxygen 04/19/24 19:24 04/19/24 19:35 04/19/24 21:08 Temperature 36.4 C Pulse Rate 68 65 63 Respiratory Rate 18 18 20 Blood Pressure 116/52 L Pulse Oximetry 93 Oxygen Delivery Oxygen Flow Rate Fraction of Inspired Oxygen 04/19/24 20:00 04/19/24 22:26 04/20/24 06:00 Temperature 37.1 C Pulse Rate 91 Respiratory Rate 20 Blood Pressure 133/52 L Pulse Oximetry 93 100 Oxygen Delivery Room Air Nasal Cannula Oxygen Flow Rate 2 Fraction of Inspired Oxygen 04/20/24 08:01 04/20/24 07:38 04/20/24 07:38 Temperature Pulse Rate 54 L Respiratory Rate 18 Blood Pressure Pulse Oximetry 93 Oxygen Delivery Room Air Room Air Oxygen Flow Rate Fraction of Inspired Oxygen 21 04/20/24 07:48 Temperature Pulse Rate 56 L Respiratory Rate 18 Blood Pressure Pul
[2024-04-20] MEDS: carvediloL 6.25 MG TABLET PO (21:07)
[2024-04-21 05:12] VITALS: BP 153/62; PULSE 54; RESP 18; TEMP 36.5; O2SAT 93
[2024-04-21] MEDS: HEPARIN SODIUM 5,000 UNITS/ML VIAL 5000 UNITS SUB-Q (05:46)
[2024-04-21] MEDS: SALINE LOCK FLUSH 10 ML IV PUSH (05:47)
[2024-04-21 06:09] LABS: INR 1.2; Prothrombin Time 15.4 Seconds (11.1-14.7)
[2024-04-21 06:10] LABS: Alanine Aminotransferase 17 U/L (6-50); Albumin Level 3.6 g/dL (3.5-5.1); Alkaline Phosphatase 56 U/L (38-126); Aspartate Amino Transferase 24 U/L (17-59); Bilirubin,Total 0.2 mg/dL (0.2-1.3)
[2024-04-21 07:28] VITALS: PULSE 68; RESP 18; O2SAT 97
[2024-04-21] MEDS: IPRATROPIUM 0.5 MG/ALBUTEROL SULFATE 2.5 MG AMPUL.NEB 3 ML INHALATION ×2 (07:29→14:02)
[2024-04-21 07:47] VITALS: PULSE 66; RESP 18
[2024-04-21 09:27] VITALS: PULSE 70
[2024-04-21] MEDS: PANTOPRAZOLE 40 MG TABLET PO (09:27)
[2024-04-21] MEDS: carvediloL 6.25 MG TABLET PO (09:27)
[2024-04-21] MEDS: ASPIRIN 81 MG ENTERIC TABLET PO (09:28)
[2024-04-21] MEDS: AMOXICILLIN/CLAVULANATE K 875-125 MG TAB 1 TABLET PO ×2 (09:28→12:47)
[2024-04-21] MEDS: levETIRAcetam 500 MG TABLET PO (09:28)
[2024-04-21] MEDS: dexAMETHasone SOD PHOS INJ 10 MG/ML 1 ML VIAL 6 MG IV PUSH (09:28)
[2024-04-21] MEDS: REMDESIVIR 100 MG/NS 250 ML 100 MG/250 ML BAG 250 MG IVPB (11:43)
--- NOTE | 2024-04-21 12:33 | PM.DS ---
DS: Admitting Diagnosis Discharge Date 04/21/2024 Admitting Diagnosis Acute respiratory failure with hypoxia secondary to COVID Pneumonia DS: Discharge Diagnosis Discharge Diagnosis (1) COVID-19: Code(s): U07.1 - COVID-19 Status: Acute (2) Hypoxic respiratory failure: Code(s): J96.91 - Respiratory failure, unspecified with hypoxia Status: Acute DS: Summary Hospital Course Reason for hospitalization: Acute respiratory failure with hypoxia secondary to COVID Pneumonia Hospital Course: Patient was a 69-year-old male who was admitted to the medical unit with acute respiratory failure with hypoxia secondary to COVID-19 pneumonia. He was treated with remdesivir, Decadron azithromycin Rocephin and supplemental oxygen. Chest x-ray did showed additional opacities in the retrocardiac left lower lobe and lateral right midlung zone. HE was then transition to PO Augmentin. Patient had been weaned off oxygen, WBC trended down, and remained afebrile during stay. He had completed full course of remdesivir with overall improvement and was discharged home with tubing tester and encouraged to continued supportive care. Status at Discharge Overall status at discharge: patient is back to baseline Time Spent with Patient Time attestation: Total time spent providing and/or coordinating discharge services: Time spent: Greater than 30 minutes Exam Narrative: -GENERAL: Pleasant, in no acute distress. Well-nourished. - HEENT: Moist mucous membranes. - LUNGS: Clear to auscultation bilaterally, coarse breath sound bilaterally - CARDIOVASCULAR: Regular rate and rhythm. No murmur. No JVD. - ABDOMEN: Soft, non-tender and non-distended. No palpable masses. - EXTREMITIES: No edema. Peripheral pulses 2+. Non-tender. - NEUROLOGIC: No focal neurological deficits. moving all extremities, - PSYCHIATRIC: Awake, Alert and not oriented x 3. Appropriate mood and affect. - SKIN: No rashes or lesions. Warm. DS: Data Data Completed and Pending Labs on day of discharge: Labs from last 24 hours 04/21/24 05:46 PT 15.4 H INR 1.2 Total Bilirubin 0.2 Direct Bilirubin 0.0 AST 24 ALT 17 Alkaline Phosphatase 56 Total Protein 6.0 L Albumin 3.6 Preliminary micro results at discharge 04/17/24 01:06 Blood Culture - Preliminary Blood 04/17/24 01:05 Blood Culture - Preliminary Blood Imaging Radiologist's impression: Radiology Results: ITS Impressions Chest X-Ray 04/17/24 07:13 IMPRESSION: 1. Elevation right hemidiaphragm with right basilar atelectasis. 2. Additional opacities in the retrocardiac left lower lung zone and at the lateral right midlung zone which could represent additional atelectasis or pneumonia. 3. Cardiomegaly. Discharge Plan Discharge Attending physician on discharge: You [employer] providers: Gui Mobley; Kristin Bo; Biju Scott; Zaid Cole; Delma Tello; Vu Payne Discharging Clinician: Whitley Rick Anticipated Discharge Date/Time: 04/21/24 12:21 Patient Disposition: Home, Self-Care Activity: may shower, unlimited and as tolerated Diet: as tolerated Discharge Instructions: You are being discharge after diagnosis of COVID. You completed remdesivir IV while hospitlaized you may continue with supportive care at home. Recommend acetaminophen q.6 for fever, stay hydrated, in encourage mobility as tolerated. If you begin to experience difficulty breathing or shortness of breath I would recommend follow-up with a medical professional. How can you care for yourself at home? ? Keep track of any new symptoms or changes in your symptoms. ? Rest until you feel better. ? Be safe with medicines. Take your medicines exactly as prescribed. Call your doctor if you think you are having a problem with your medicine. ? Do not drive after taking a prescription pain medicine. ? Ensure to follow-up with primary care physician
[2024-04-21 14:02] VITALS: PULSE 58; RESP 18
[2024-04-21 14:08] VITALS: PULSE 61; RESP 18
--- NOTE | 2024-05-06 05:47 | PM.IMHP ---
H&P: HPI History of Present Illness Date/Time: 05/06/24 05:47 [facility] Social History Social History Smoking status: Former smoker Alcohol intake: former Substance use: unknown Do You Feel Safe in your Home?: Yes Lack of Transportation: No Lack of Food: Never True Current Housing: I Have Housing Concerned About Future Housing: No Difficulty Paying Gas/Electric Bills: No Difficulty Paying for Meds: No Currently Unemployed: No Education: Don't Know Difficulty w/ Childcare or Family Care: No Spiritual care concerns: No Meds Home Medications and Allergies Home Medications Medication Instructions Recorded Confirmed Type Mucinex DM 600 mg Q12H 04/17/24 04/17/24 History aspirin 81 mg tablet,delayed 81 mg DAILY 04/17/24 04/17/24 History release carvedilol 6.25 mg tablet 6.25 mg BID 04/17/24 04/17/24 History furosemide 20 mg tablet 20 mg DAILY PRN Edema 04/17/24 04/17/24 History levetiracetam 500 mg tablet 500 mg PO BID 04/17/24 04/17/24 History losartan 50 mg tablet 50 mg DAILY 04/17/24 04/17/24 History pantoprazole 40 mg tablet,delayed 40 mg PO DAILY 04/17/24 04/17/24 History release Allergies Allergy/AdvReac Type Severity Reaction Status Date / Time No Known Allergies Allergy Verified 04/17/24 00:04 Hospitalist [facility] Advance Care Plan I have confirmed that the patient's Advanced Care Plan is present, code status is documented, or surrogate decision maker is listed in patient medical record.: Yes Medication Reconciliation I have utilized all available resources to obtain, update and review the patients current medications (includes all prescriptions, OTC, herbals, cannabis, and nutritional supplements).: Yes
== END 2024-04-21 14:20 | disposition home or self-care (01) ==
LOC: ANHED 03:03 → ANH2MED 04:55
PROVIDERS: Hospitalist; Internal Medicine; Physician Assistant; Admitting Provider Internal Medicine; Emergency Provider Emergency Medicine; Visit Provider Nurse Practitioner Family
DX: U07.1 COVID-19 (principal); J12.82 Pneumonia due to coronavirus disease 2019; J96.21 Acute and chronic respiratory failure with hypoxia; Z99.81 Dependence on supplemental oxygen; E87.6 Hypokalemia; I51.7 Cardiomegaly; G40.909 Epilepsy, unspecified, not intractable, without status epilepticus; G30.9 Alzheimer's disease, unspecified; F02.80 Dementia in other diseases classified elsewhere, unspecified severity, without behavioral disturbance, psychotic disturbance, mood disturbance, and anxiety; Z87.820 Personal history of traumatic brain injury; Z87.891 Personal history of nicotine dependence; Z79.82 Long term (current) use of aspirin; Z79.899 Other long term (current) drug therapy; Z91.199 Patient's noncompliance with other medical treatment and regimen due to unspecified reason
CPT/HCPCS: 36415; 36569; 36600; 71045; 80048; 80053; 80076; 81001; 82805; 83605; 83690; 83735; 83880; 84145; 84484; 85018; 85025; 85610; 85730; 87040; 87637; 93005; 93306; 94640; 96365; 96366; 96367; 96372; 96374; 96375; 96376; 97110; 97161; 97165; 97530; 97535; 99285; A9270; C1751; G0378; J0248; J0456; J0696; J1100; J1644; J3480

== ENCOUNTER 2024-11-08 13:11 | Inpatient (IN) | payer MEDICARE, MEDICAID, SELFPAY ==
[2024-11-08] VITALS (17 sets, daily range): BP systolic 77–141; BP diastolic 41–74; PULSE 56–106; RESP 15–27; TEMP 36.5–37.9; O2SAT 87–99; BMI 23.9
--- NOTE | ~2024-11-08 | CT_ITS ---
CLINICAL INDICATION: Abnormal chest x-ray COMPARISON: Chest radiograph performed the same day approximately 2 hours earlier. TECHNIQUE: Multiple contiguous axial images of the chest was performed without the administration of intravenous contrast. This CT examination was performed utilizing dose reduction techniques. DLP: 272 mGy-cm FINDINGS/OBSERVATIONS: LUNG: Redemonstration of both right basilar and right middle lobe consolidation for which an infectious felisha ology is favored. Follow-up to resolution is recommended, as a malignancy may have a similar appearance. The left hemithorax is primarily clear. HEART: The heart is of normal size, without pericardial effusion. MEDIASTINUM: No pathologically enlarged or morphologically suspicious lymph nodes are identified within the medias tinum, bilateral axilla, within the soft tissues of the anterior chest wall. Multiple calcified lymph nodes are identified within the mediastinum, suggesting prior granulomatous disease. SOFT TISSUES OF THE CHEST: Likely ventriculoperitoneal shunt is identified within the soft tissues of the right neck and right a nterior chest wall. BONES OF THE CHEST: No acute fracture. No lytic or blastic lesions are identified. IMPRESSION: Multifocal consolidation, likely infectious in origin, for which follow-up to resolution is recommend ed as a malignancy may have a similar appearance. Reviewed, dictated and finalized at location A. IMPRESSION: Multifocal consolidation, likely infectious in origin, for which follow-up to r esolution is recommended as a malignancy may have a similar appearance.
--- NOTE | ~2024-11-08 | US_ITS ---
EXAMINATION: US thoracentesis DATE: 11/09/2024 11:59 INDICATION: Right pleural effusion TECHNIQUE: The procedure and its risks and benefits were discussed with the patient. Potential risks discussed included bleeding, infection, and pneumothorax. The patient understood the risks and agreed to proceed. The skin was prepped and draped in sterile fashion. 1% lidocaine was used for local anes thesia. Under ultrasound guidance, a 5 Fr catheter with trochar was advanced into the small right ple ural effusion. Fluid was aspirated. The catheter was removed, and a dressing was applied. There were no immediate complications. FINDINGS: Ultrasound images demonstrate a small right pleural effusion and the catheter within the fluid. IMPRESSION: 1. Successful ultrasound-guided thoracentesis yielding 200 mL of yellow fluid. Reviewed, dictated and finalized at location B.
--- NOTE | ~2024-11-08 | XR_ITS ---
EXAMINATION: XR chest 2V Exam Date/Time: 11/08/2024 15:25 CDT HISTORY: cough Comparison: 04/17/2024. RESULT: Lines, tubes, and devices: None. Lungs and pleura: Masslike opacity measuring 3.7 cm, over the right hilum. Volume loss in the right lung. Moderate right pleural fluid collection. Cardiomediastinal silhouette: Stable. Other: No acute osseous or upper abdominal finding. IMPRESSION: Right hilar mass or masslike consolidation with right lung volume loss. Moderate right effusion. Reviewed, dictated and finalized at location K. IMPRESSION: Right hilar mass or masslike consolidation with right lung volume loss. Moderat e right effusion.
--- NOTE | ~2024-11-08 | XR_ITS ---
Portable chest x-ray Comparison: 11/09/2024 Clinical History: Pneumonia Findings: Left subclavian line in place. Large right pleural effusion present with probable element of right lung atelectasis as well. There is mild central congestive change in the left lung. Cardiom ediastinal silhouette is stable. Bones and soft tissues are unremarkable. Impression: Large right pleural effusion with probable element of right lung atelectasis. Mild central congestive change in the left lung. Reviewed, dictated and finalized at location . Impression: Large right pleural effusion with probable element of right lung atelectasis. Mild central congestive change in the left lung.
--- NOTE | ~2024-11-08 | XR_ITS ---
EXAMINATION: XR chest port-a-cath/central Exam Date/Time: 11/08/2024 21:00 CDT HISTORY: CENTRAL LINE PLACEMENT Comparison: Same date at 3:29 PM. RESULT: Lines, tubes, and devices: New left subclavian central line, terminating at the cavoatrial junction right atrium, more accurate determination is difficult given the partial obscuration of the cardiomed iastinal silhouette. Lungs and pleura: Interval volume loss in the right hemithorax. Increasing mid and lower lung opacif ication, with obscuration of the previously described hilar mass/opacity and increased blunting of th e costophrenic angle. Cardiomediastinal silhouette: Stable, although partially obscured. Other: No acute osseous or upper abdominal finding. IMPRESSION: New left subclavian central line terminating at the cavoatrial junction or right atrium. Interval increasing volume loss and opacification in the right hemithorax probably secondary to atele ctasis and changing position of a moderate right pleural effusion. Reviewed, dictated and finalized at location K. IMPRESSION: New left subclavian central line terminating at the cavoatrial junction or righ t atrium. Interval increasing volume loss and opacification in the right hemithorax proba brenda secondary to atelectasis and changing position of a moderate right pleural effusion.
--- NOTE | ~2024-11-08 | XR_ITS ---
EXAMINATION: [id number] DATE: 11/09/2024 12:14 INDICATION: Right pleural effusion postthoracentesis. TECHNIQUE: frontal view of the chest was obtained. COMPARISON: Chest radiograph dated 11/08/24 FINDINGS: Persistent elevation the right hemidiaphragm. Patchy airspace opacities in the right mid and lower ivan ng zones suspicious for pneumonia. No definitive residual right pleural effusion. Left lung is clear with no airspace opacities, pulmonary edema or pleural effusion. No pneumothorax. Visualized cardiome diastinal silhouette is within normal limits for AP technique. Left subclavian central venous cathete r with distal tip near the superior cavoatrial junction. Calcified right hilar lymph nodes consistent with old granulomatous disease. Partially visualized likely ventriculoperitoneal shunt coursing marilee g the right-sided the neck, chest and upper abdomen. Lower thoracic compression fracture. IMPRESSION: 1. No residual pleural effusion and no pneumothorax post right thoracentesis. 2. Unchanged elevation the right hemidiaphragm with persistent patchy airspace opacities in the right mid and lower lung zone which could represent atelectasis and/or pneumonia. Reviewed, dictated and finalized at location B. IMPRESSION: 1. No residual pleural effusion and no pneumothorax post right thoracentesis. 2. Unchanged elevation the right hemidiaphragm with persistent patchy airspace opacities in the right mid and lower lung zone which could represent atelectasi s and/or pneumonia.
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
--- OUTSIDE RECORDS SUMMARY | 2024-11-08 14:54 | XMS_ITS | CONTINUITY OF CARE DOCUMENT ---
Author Name talya enacory Address Unknown Organization [facility] Address [address] [place] [address] [address] [place] [address] Phone [phone] Care Team Providers Care Grab Operator Name Role Phone Andreina CHAHAL, Los Unavailable Los Hdz MD Unavailable [phone] ROLANDO CHAHAL [facility] Unavailable PROBLEMS Condition Status Date Provider Notes Cardiology examination active Los Hdz MD Hyperlipidemia active Los Hdz MD Hypertension active Los Hdz MD Shortness of breath (SOB) active Los palm MD Dyspnea on exertion active Los Hdz MD ? Sleep apnea active Los Hdz MD Heart failure with Left Vent ricular Ejection Fraction (LVEF) 41-49% active Los Hdz MD ENCOUNTERS Date Type Provider Location Encounter Diag nosis 08/24 - 08/24 In-person encounter Office Visit Los Hdz MD [facility] 02/23 - 02/23 In-person encounter Office Visit Los Hdz MD [facility] ? Sleep apneaHeart failure with Left Jonatan tricular Ejection Fraction (LVEF) 41-49% 02/25 - 02/25 In-person encounter Office Visit Los Hdz MD [facility] 03/12 - 03/13 In-person encounter Office Visit Los Hdz MD [facility] 01/18 - 01/21 In-person encounter Office Visit Los Hdz MD [facility] Cardiology examinationHyperlipidemiaHypertensionShortness of breath (SOB)Dyspnea on exertion VITAL SIGNS Date Observation Value Provider Body Mass Index (Ratio) 24.27 kg/m2 Juan Hdz MD oxygen saturation, oximetry 97 % Yael [facility] blood pressure, diastolic 77 mm[Hg] Sergio estradaa [facility] blood pressure, systolic 123 mm[Hg] Ronel purdy [facility] pulse rate 61 /min Yael [facility] weight E&M 155 [lb_av] Yael [facility] height E&M 67 [in_i] Yael [facility] Body Mass Index (Ratio) 25.53 kg/m2 Juan Hdz MD blood pressure, cuff size regular Rolando malone [facility] blood pressure, diastolic 64 mm[Hg] Rolando malone [facility] blood pressure, systolic 120 mm[Hg] Tyson ross [facility] oxygen saturation, oximetry 94 % Becca [facility]son pulse rate 67 /min Becca [facility]son respiratory rate E&M 12 /min Becca [facility] weight E&M 163 [lb_av] Becca [facility]son height E&M 67 [in_i] Becca [facility] blood pressure, diastolic 72 mm[Hg] [facility] 115 mm[Hg] [place] [facility] Body Mass Index (Ratio) 25.06 kg/m2 Juan Hdz MD blood pressure, diastolic 72 mm[Hg] Deborah Wilson blood pressure, systolic 115 mm[Hg] [place] Graham pulse rate 64 /min Wendie Lantigua blood pressure, diastolic 72 mm[Hg] Nino Lantigua blood pressure, systolic 115 mm[Hg] Marbella Lantigua respiratory rate E&M 20 /min Wendie Lantigua blood pressure, cuff size regular Sh asad Lantigua weight E&M 160 [lb_av] Wendie Lantigua height E&M 67 [in_i] Wendie Lantigua Body Mass Index (Ratio) 27.88 kg/m2 Juan Hdz MD blood pressure, diastolic 77 mm[Hg] Lavinia islas [facility]rade blood pressure, systolic 123 mm[Hg] Juan helle [place] oxygen saturation, oximetry 96 % Anna Andrade pulse rate 74 /min Anna sales weight E&M 178 [lb_av] Anna sales blood pressure, cuff size large Lavinia islas Andrade respiratory rate E&M 16 /min Kitty Andrade height E&M 67 [in_i] Anna sales Body Mass Index (Ratio) 27.88 kg/m2 Juan Hdz MD blood pressure, cuff size large Lavinia islas [place] blood pressure, diastolic 80 mm[Hg] Oh roshan [place] blood pressure, systolic 130 mm[Hg] Juan helle Andrade oxygen saturation, oximetry 90 % Anna Andrade respiratory rate E&M 16 /min Kitty Andrade pulse rate 80 /min Anna sales height E&M 67 [in_i] Anna sales weight E&M 178 [lb_av] Anna sales HISTORY OF MEDICATION USE Medication Status Instructions Dates Provider Indications Com ments metoprolol tartrate 25 mg tablet completed Take 1 tablet by mouth twice daily [facility] carvedilol 6.25 mg tablet active Take 1 tablet by mouth twice a day Simonejuan Shukri AGUILERA losartan 50 mg tablet active Take 1 tab let by mouth once a day Filiberto Watt NP aspirin 81 mg tablet,delayed release (DR/EC) active TAKE 1 TABLET BY MOUTH ONCE DAILY Filiberto Watt NP metoprolol tartrate 25 mg tablet completed Take 1 tablet by mouth twice daily - Filiberto Shukri AGUILERA furosemide 20 mg tablet active TAKE 1 TABLET BY MOUTH ONCE DAILY NEEDED Carol Rushing furosemide 20 mg tablet completed 1 tablet once a day as needed Take 1 tablet daily as needed for swelling. - Filiberto Watt NP amlodipine 10 mg tablet completed 1 tablet once a day - Filiberto Watt NP metoprolol tartrate 25 mg tablet completed Take 1 tablet by mouth twice a day - Gabrielle Liao RN tamsulosin 0.4 mg capsule completed TAKE 1 CAPSULE BY MOUTH ONCE DAILY DIRECTED FOR 30 DAYS - Filiberto Watt NP finasteride 5 mg tablet completed TAKE 1 TABLET BY MOUTH ONCE DAILY DIRECTED FOR 30 DAYS - Filiberto aWtt NP hydrochlorothiazide 12.5 mg capsule completed TAKE 1 CAPSULE BY MOUTH ONCE DAILY - Los Hdz MD levetiracetam 500 mg tablet active TAKE 1 TABLET BY MOUTH TWICE DAILY Anna Andrade pantoprazole 40 mg tablet,delayed release (DR/EC) active TAKE 1 TABLET BY MOUTH ONCE DAILY, COMPLETE DEXILANT THEN START PANTOPRAZOLE Anna Andrade SOCIAL HISTORY Date Observation Value Provider personal history of marijuana use no Los Hdz MD drug use no Los Sales alcohol use no Los Sales smoking status Former smoker Los cm MD personal history of marijuana use no Filiberto Watt NP drug use no Filiberto Watt NP alcohol use no Filiberto Watt NP smoking status Former smoker 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 oLs Hdz MD social history reviewed E&M revi ewed - no changes required Los Hdz MD smoking status Former smoker Anna rincon social history E&M Marital Statu s: Renuka harrisonen: 0 O ccupation: Disabled Smoking History: P atient is a former smoker. Los Hdz MD social history reviewed E&M revi ewed - no changes required Los Hdz MD smoking status Former smoker Los cm MD FAMILY HISTORY Family Member Condition First Degree Blood Relative No Known Fam yoan History INSURANCE PROVIDERS Payer name Policy type / Coverage type [place] [employer] libertarian ID AARP MEDICARE ADVANTAGE ([facility] COMPLETE PPO) Other [id number] [facility] Medicaid 0 [id number] ADVANCE DIRECTIVES Name Date DISCUSSED - NO DECISION MADE DISCUSSED - NO DECISION MADE TREATMENT PLAN Date Name Performer [id number],S, Los cm MD [id number],SLos MD [id number],SLos MD [id number],S, Los cm MD [id number],SLos MD [id number],S, Los cm MD [id number],S, Los cm MD [id number],S, Los cm MD [id number],SLos MD [id number],S, Los cm MD [id number],S, Los cm MD [id number],S, Los cm MD Cardiology:I don't t hink he needs the statin, but will leave to primary. Los Hdz MD Cardiology Los Hdz MD Cardiology Los Hdz MD Cardiology:EF 55% by today's ECHO. Last echo 12/26/23 showed impaired LV relaxation, mild global LV systolic hypokinesis. ef 45% no significant valvular abnormalities. W ill start Carvedilol and Losartan W ill recheck echo in 6 months Los Hdz MD Cardiology: L ast echo 12/26/23 showed impaired LV relaxation, mild global LV systolic hypokinesis. ef 45% no significant valvular abnormalities. W ill start Carvedilol and Losartan W ill recheck echo in 6 months Filiberto Watt NP Cardiology: U ses oxygen 2L/NC per night Filiberto Watt NP Cardiology: L ast echo 12/26/23 showed impaired LV relaxation, mild global LV systolic hypokinesis. ef 45% no significant valvular abnormalities. W ill start Carvedilol and Losartan Filiberto Watt NP Cardiology: L abs per PCP Filiberto Watt NP Cardiology: B P today: 120/64 P rior BP: 115/72 (02/25/2023) His updated medication list for this problem includes: Carvedilol 6.25 Mg Tablet (Carvedilol) ..... Take 1 tablet by mouth twice a day Losartan 50 Mg Tablet (Losartan) ..... Take 1 tablet by mouth once a day Aspirin 81 Mg Tablet,delayed Release (dr/ec) (Aspirin) ..... Take 1 tablet by mouth once daily Furosemide 20 Mg Tablet (Furosemide) ..... Take 1 tablet by mouth once daily as needed Filiberto Watt NP Cardiology Los Hdz MD Cardiology Los Hdz MD Cardiology Los Hdz MD Cardiology Los Hdz MD Cardiology Los Hdz MD Cardiology Los Hdz MD Cardiology Los Hdz MD Cardiology Los Hdz MD Cardiology Los Hdz MD Cardiology Los Hdz MD Cardiology Los Hdz MD Cardiology Los Hdz MD Date Name Complete Echo Complete Echo Stress Regadenoson HISTORY OF PROCEDURES Procedure Date Procedure Name Provider Procedure Notes S tatus EKG Los Hdz MD complete d EKG Los Hdz MD complete d
--- OUTSIDE RECORDS SUMMARY | 2024-11-08 14:54 | XMS_ITS | Encounter Summary ---
Author Organization [facility] Address [address] [place] [address] Care Team Providers Care Ordinary Seaman Name Role Phone Luda Hamlin Primary Care Provider Unavailab le Encounter Details Date Type Department Care Team ([facility] Contact Info) Description 10/27/2024 Results Follow-Up [facility] - Dermatology [address] [place] [phone] José Miguel Fritz MD [address] [facility] [place] [id number] Social History Tobacco Use Types Packs/Day Years Used Date Smoking Tobacco: Former Smokeless Tobacco: Never Alcohol Use Standard Drinks/Week Comments Not Currently 0 (1 standard drink = 0.6 oz pur e alcohol) Sex and Gender Information Value Date Recorded Sex Assigned at Not on file Legal Sex Male 9:34 AM CDT Gender Identity Not on file Sexual Orientation Not on file documented as of this encounter Plan of Treatment Upcoming Encounters Date Type Department Care Team (Late Contact Info) Description 10/18/2025 1:00 PM CDT Office Visit [facility] Dermatology [address] [place] [phone] Isaak Peterson MD [address] [place] [address] [address] [place] [address] documented as of this encounter Visit Diagnoses Not on filedocumented in this encounter Care Teams Ordinary Seaman Relationship Specialty Start Date End Date Luda Hamlin Update Information PCP - General 03/25/22 documented as of this encounter
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
--- OUTSIDE RECORDS SUMMARY | 2024-11-08 14:54 | XMS_ITS | Clinical Summary ---
Author Organization [facility] Address [address] [place] [address] Care Team Providers Care Digital Archivist Name Role Phone Luda Hamlin Primary Care Provider Unavailab le Source Comments [facility],non-owned Affiliates and Associated Physician Practices [place] [facility] [facility] consisting of ambulatory clinics and hospital sitesin [place], [place], [place] and [place]. This disclosure is being madepursuant to the Care Everywhere program and may not contain all information available regarding this patient. Last updated 18.[facility] Allergies No known active allergies Medications * Be aware that medications may not be up to date on this document. Alwaysverify current medications with the patient. levETIRAcetam (KEPPRA) 500 MG tablet 1 Active dexlansoprazole (Dexilant) 30 MG capsule Dexilant 30 mg capsule, delayed release TAKE 1 CAPSULE BY MOUTH ONCE DAILY Active pantoprazole EC (Protonix) 40 MG tablet Take 1 (one) tablet by mouth once daily 2 Active metoprolol tartrate IR (Lopressor) 25 MG tablet metoprolol tartrate 25 mg tablet TAKE 1 TABLET BY MOUTH TWICE DAILY 2 Active levoFLOXacin (Levaquin) 750 MG tablet 2 Active levETIRAcetam (Keppra) 500 MG tablet Take 1 (one) tablet by mouth 2 times daily 1 Active hydrALAZINE (Apresoline) 50 MG tablet Take 1 (one) tablet by mouth 3 times daily 2 Active furosemide (Lasix) 20 MG tablet furosemide 20 mg tablet TAKE 1 TABLET BY MOUTH ONCE DAILY NEEDED 2 Active finasteride (Proscar) 5 MG tablet TAKE 1 TABLET BY MOUTH ONCE DAILY DIRECTED FOR 30 DAYS 2 Active albuterol HFA (Proventil; Ventolin; Proair) 108 (90 Base) MCG/ACT inhaler 2 Active zinc gluconate 50 MG tablet Take 1 (one) tablet by mouth Active ubiquinine/linn min-e (Coenzyme Q10) 200 MG capsule Take 200 mg by mouth once daily Active Docusate Sodium (DSS) 100 MG Take 100 mg by mouth 2 times daily Active Biotin 1 MG Take 5,000 mcg by mouth Active benzonatate (Tessalon) 200 MG capsule benzonatate 200 mg capsule 200 mg by oral route. 2 Active amLODIPine (Norvasc) 10 MG tablet 1 (one) tablet every 24 hours Active aspirin EC (Ecotrin) 81 MG tablet Take 1 (one) tablet by mouth once daily 3 Active atorvastatin (Lipitor) 40 MG tablet Take 1 tablet every day by oral route at bedtime for 90 days, for Hypercholestero lemia. Active losartan (Cozaar) 50 MG tablet Take 1 tablet every day by oral route as directed for 90 days. 4 Active carvedilol (Coreg) 6.25 MG tablet Take 1 tablet twice a day by oral route as directed for 90 days. 4 Active ketoconazole (Nizoral) 2 % shampooIndicati ons:Other seborrheic dermatitis Apply to wet scalp and face, leave on for 3-4 minutes, then rinse; three times weekly. 30 days supply 120 mL 11 5 Active ketoconazole (Nizoral) 2 % creamIndication s:Other seborrheic dermatitis Apply to affected areas on the face twice daily. 30 days supply. 60 g 5 Active triamcinolone acetonide (Kenalog) 0.1 % creamIndication s:Rash and other nonspecific skin eruption APPLY TO HANDS AND FOREARMS Three times weekly for rash. Also apply to right armpit twice daily for 2 weeks for rash. 60 g 5 Active ketoconazole (Nizoral) 2 % shampoo APPLY TO THE AFFECTED AREA(S) TOPICALLY, LATHER, LEAVE IN PLACE FOR 5 MINUTES, AND THEN RINSE OFF WITH WATER ONCE DAILY 2 025 Discontin ued(List Clean-Up) ketoconazole (Nizoral) 2 % shampooIndicati ons:Other seborrheic dermatitis Apply to wet hair and face, leave on for 3 minutes, then rinse; three times weekly. 30 days supply 120 mL 11 3 025 Discontin ued(List Clean-Up) ketoconazole (Nizoral) 2 % creamIndication s:Other seborrheic dermatitis Apply to affected areas on the face twice daily. 30 days supply. 60 g 11 3 025 Discontin ued(List Clean-Up) triamcinolone acetonide (Kenalog) 0.1 % creamIndication s:Rash and other nonspecific skin eruption APPLY TO HANDS AND FOREARMS TWICE DAILY. 60 g 4 025 Discontin ued(Reord er) Active Problems Problem Noted Date Diagnosed Date Other seborrheic dermatitis 10/19/2022 Lentigines 10/19/2022 Seborrheic keratoses 10/19/2022 Acute on chronic respiratory failure with hyperc apnia 10/18/2022 Aspiration pneumonia 10/18/2022 Seizure disorder 10/18/2022 Skin eruption 10/18/2022 Severe acute respiratory syn drome coronavirus 2 (SARS-CoV-2) antigen vaccine declined 06/25/2021 Schneider's esophagus 04/26/2021 Benign hypertension 04/26/2021 Disorder of lipid metabolism 04/26/2021 Gait instability 04/26/2021 Memory loss 04/26/2021 Incontinence of urine 02/22/2021 Overview (04/26/2021): Last Assessment & Plan: Patient's family describes as several month history [...] in neurology clinic thereafter. Generalized seizures 11/23/2020 Overview (04/26/2021): Last Assessment & Plan: Patient continues on levetiracetam 500 mg b.i.d. with no interval seizures reported. Traumatic brain injury with loss of consciousnes s 11/23/2020 Overview (04/26/2021): Last Assessment & Plan: Patient has traumatic brain injury with expressive communicating difficulties and some receptive communicating difficulties as well. Lacunar infarction 04/02/2019 Degeneration of cervical intervertebral disc Chronic headache disorder 10/14/2016 Encounters Date Type Department Care Team Description 10/27/2024 Results Follow-Up [facility] - Dermatology [address] [place] [phone] José Miguel Fritz MD 10/12/2024 2:00 PM CDT Office Visit [facility] - Dermatology [address] [place] [phone] Isaak Peterson MD Rash and other nonspecific skin eruption (Primary Dx); Other seborrheic dermatitis; Seborrheic keratoses; Other eczema 10/12/2024 Travel 08/12/2024 Travel from Last 3 Months Social History Tobacco Use Types Packs/Day Years Used Date Smoking Tobacco: Former Smokeless Tobacco: Never Tobacco Cessation:Counseling Given: No Alcohol Use Standard Drinks/Week Comments Not Currently 0 (1 standard drink = 0.6 oz pur e alcohol) Sex and Gender Information Value Date Recorded Sex Assigned at Not on file Legal Sex Male 9:34 AM CDT Gender Identity Not on file Sexual Orientation Not on file Last Filed Vital Signs Vital Sign Reading Time Taken Comments Blood Pressure 135/73 01/05/2024 1:41 PM CDT Pulse 59 01/05/2024 1:41 PM CDT Temperature 36.6 C (97.8 F) 01/05/2024 1:41 PM CDT Respiratory Rate - - Oxygen Saturation 93% 01/05/2024 1:41 PM CDT Inhaled Oxygen Concentration - - Weight 74.4 kg (164 lb) 01/05/2024 1:41 PM CDT Height 175.3 cm (5' 9 ) 01/05/2024 1:41 PM CDT Body Mass Index 24.22 01/05/2024 1:41 PM CDT Plan of Treatment Upcoming Encounters Date Type Department Care Team (Late st Contact Info) Description 10/18/2025 1:00 PM CDT Office Visit [facility] - Dermatology [address] [place] [address], [place] [phone] Isaak Peterson MD [address] [place] [address] [address] [place] [address] Health Maintenance Due Date Last Done Comments COLOGUARD (AGES 45-75) - COLON CA SCREENING 1955 COLON MONITORING 1955 COLONOSCOPY - COLON CA SCREENING 1955 CT COLONOGRAPHY - COLON CA SCREENING 1955 Colorectal Cancer Screening 1955 FIT - COLON CA SCREENING 1955 FLEX SIG - COLON CA SCREENING 1955 HEPATITIS C SCREENING 04/09/1973 DTAP/TDAP/TD VACCINES (1 - Tdap) 1974 PNEUMOCOCCAL VACCINE 50+ (1 of 1 - PCV) 2005 ZOSTER VACCINE (1 of 2) 2005 AAA SCREENING 2020 COVID-19 VACCINE ( - season) 2024 DEPRESSION SCREENING 07/14/2024 MEDICARE AWV CALENDAR YEAR 2024 INFLUENZA VACCINE (Season Ended) 2025 04/18/2022, 03/28/2021, 09/21/2020, Additional history exists Respiratory Syncytial Virus (RSV) Vaccine Pt: or over 60 yrs (1 - 1-dose 75+ series) 2030 HEPATITIS B VACCINE Aged Out No longe r eligible based on patient's age to complete this topic HIB VACCINE Aged Out No longer eligi ble based on patient's age to complete this topic HPV VACCINE Aged Out No longer eligi ble based on patient's age to complete this topic MENINGOCOCCAL (Group B) VACCINE SHARED DECISION-MAKING Aged Out No longer eligible based on patient's age to complete this topic MENINGOCOCCAL GROUPS A/C/Y/W VACCINE Aged Out No longer eligible based on patient's age to complete this topic Procedures Procedure Name Priority Date/Time Associated Diagnosis Comments LAB RESULTS ORDER 10/12/2024 CULTURE FUNGUS OTHER+FUNGUS SMEAR Routine 10/12/2024 Rash and other nonspecific skin eruption CULTURE AEROBIC Routine 10/12/2024 Rash and other nonspecific skin eruption from Last 3 Months Results * LAB RESULTS ORDER (10/12/2024) 10/12/2024 Narrative 10/12/2024 Ordered by an unspecified provider. us Scanned Document LAB - THERAPEUTIC DRUG MONITORI NG ORDERABLES Final Result from Last 3 Months Insurance [facility] MEDICAID [facility] MANAGED MEDICARE ADV [facility] MANAGED MEDICARE [facility] MEDICAID - OUT OF STATE Care Teams Digital Archivist Relationship Specialty Start Date End Date Luda Hamlin Update Information PCP - General 03/25/22
--- OUTSIDE RECORDS SUMMARY | 2024-11-08 14:54 | XMS_ITS | Referral Summary ---
Author Organization [facility] [place] [address] [facility] [place] [address] [place] [address] Care Team Providers Care Pluck Separator Name Role Phone Boubacar Gutierrez MD Primary [...] impairment chronically in generalized seizure as sequelae. Social History Tobacco Use Types Packs/Day Years Used Date Smoking Tobacco: Former Smokeless Tobacco: Never Tobacco Cessation:Counseling Given: Not Answered Alcohol Use Standard Drinks/Week Comments Not Currently 0 (1 standard drink = 0.6 oz pur e alcohol) Sex and Gender Information Value Date Recorded Sex Assigned at Not on file Legal Sex Male 5:52 AM EXECUTIVE KITCHEN MANAGER Gender Identity Not on file Sexual Orientation Not on file Last Filed Vital Signs Vital Sign Reading Time Taken Comments Blood Pressure 120/82 08/05/2024 3:12 PM EXECUTIVE KITCHEN MANAGER Pulse 48 08/05/2024 3:12 PM EXECUTIVE KITCHEN MANAGER Temperature 36.2 C (97.1 F) 07/12/2022 1:09 PM EXECUTIVE KITCHEN MANAGER Respiratory Rate 20 07/12/2022 1:09 PM EXECUTIVE KITCHEN MANAGER Oxygen Saturation 91% 07/12/2022 1:09 PM EXECUTIVE KITCHEN MANAGER Inhaled Oxygen Concentration - - Weight 75.3 kg (166 lb) 08/05/2024 3:12 PM EXECUTIVE KITCHEN MANAGER Height 175.3 cm (5' 9 ) 08/05/2024 3:12 PM EXECUTIVE KITCHEN MANAGER Body Mass Index 24.51 08/05/2024 3:12 PM EXECUTIVE KITCHEN MANAGER Plan of Treatment Not on file Insurance IDPA [facility] MEDICARE [facility] Address: [address] [address] [place] [address] [facility] PLAN [facility] MEDICARE [facility]V[employer]AGE [facility] Address: [address] [address] [place] [address] IDPA Care Teams Pluck Separator Relationship Specialty Start Date End Date Boubacar Gutierrez MD [phone] [address] PCP - General Internal Medicine 10/30/18
--- NOTE | 2024-11-08 14:58 | ED_ITS ---
HPI - URI/Sore Throat General Chief Complaint: Upper Respiratory Infection <Mag Amador PA-C - Last Filed: 11/09/24 10:36> Stated Complaint: congestion, cough <Mag Amador PA-C - Last Filed: 11/09/24 10:36> Time Seen by Provider: 11/08/24 14:58 <Mag Amador PA-C - Last Filed: 11/09/24 10:36> Focused HPI: This is a 69 year old male that presents to the ER for cough. Reports it has been ongoing for a month. Reports he is not able to walk. Reports generalized weakness. 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 He wears 2L oxygen nightly for probable sleep apnea. He has not been evaluated for his cough yet. GENERAL: Elderly, well-nourished, and in no acute distress. HEAD: Atraumatic. CHEST: Clear to auscultation. ?No respiratory distress. HEART: Regular rate and rhythm.? NEURO: ?Alert and oriented x3. Patient screened in triage and initial orders placed.? ?Additional care and disposition to be based upon?diagnostic testing and treatment. <Mag Amador PA-C - Last Filed: 11/09/24 10:36> History of Present Illness HPI Narrative: Agree with HPI. <Tony Chu MD - Last Filed: 11/08/24 19:09> Related Data Home Medications: Home Medications ?Medication ?Instructions ?Recorded ?Confirmed ?Last Taken ?Type Mucinex DM 600 mg PO Q12H 04/17/24 11/08/24 04/16/24 History aspirin 81 mg tablet,delayed 81 mg PO DAILY 04/17/24 11/08/24 04/16/24 History release carvedilol 6.25 mg tablet 6.25 mg PO BID 04/17/24 11/08/24 04/16/24 History furosemide 20 mg tablet 20 mg PO DAILY PRN Edema 04/17/24 11/08/24 04/16/24 History levetiracetam 500 mg tablet 500 mg PO BID 04/17/24 11/08/24 04/16/24 History losartan 50 mg tablet 50 mg PO DAILY 04/17/24 11/08/24 04/16/24 History pantoprazole 40 mg tablet,delayed 40 mg PO DAILY 04/17/24 11/08/24 04/16/24 History release atorvastatin 40 mg tablet 40 mg PO QPM 11/08/24 11/08/24 Unknown History Lactobacillus acidophilus and 1 cap PO DAILY 11/09/24 11/09/24 Unknown History rhamnosus 15 billion cell capsule (Probiotic) biotin 5,000 mcg disintegrating 5,000 mcg PO DAILY 11/09/24 11/09/24 Unknown History tablet cholecalciferol (vitamin D3) 50 2,000 unit PO DAILY 11/09/24 11/09/24 Unknown History mcg (2,000 unit) capsule coenzyme Q10 100 mg capsule 100 mg PO DAILY 11/09/24 11/09/24 Unknown History (CoQ-10) docusate sodium 100 mg capsule 100 mg PO TID 11/09/24 11/09/24 Unknown History llfyhtahwsur-mxyuqvak-dxipnz 1 tablet PO DAILY 11/09/24 11/09/24 Unknown History tablet (Multivitamin 50 Plus tablet) zinc 50 mg tablet 50 mg PO DAILY 11/09/24 11/09/24 Unknown History <Mag Amador PA-C - Last Filed: 11/09/24 10:36> Allergies/Adverse Reactions: Allergies Allergy/AdvReac Type Severity Reaction Status Date / Time No Known Allergies Allergy Verified 11/08/24 13:16 <Mag Amador PA-C - Last Filed: 11/09/24 10:36> Review of Systems 2 Review of Systems: ROS unobtainable: Yes unobtainable due to mental status <Tony Chu MD - Last Filed: 11/08/24 19:09> [facility] Past Medical History Medical History: Medical History (Updated 11/09/24 @ 10:36 by Mag Amador PA-C) Seizure disorder Constipation Vitamin D deficiency Hyperlipidemia Essential hypertension History of traumatic brain injury <Mag Amador PA-C - Last Filed: 11/09/24 10:36> Surgical History Surgical History: Surgical History (Updated 11/09/24 @ 09:21 by Gerri Weiss DO) [employer] (ventriculoperitoneal) shunt status History of cranial surgery At least 30 years ago <Mag Amador PA-C - Last Filed: 11/09/24 10:36> Family History Family History: Family History Other Unknown family medical history <Mag Amador PA-C - Last Filed: 11/09/24 10:36> Social History Social History: Social History (Updated 11/09/24 @ 09:23 by Gerri Weiss DO) Social History: Code status: Full code Smoking status: Former smoker Tobacco type: cigarettes Alcohol intake: former Substance use: unknown Do You Feel Safe in your Home?: Yes Lack of Transportation: No Lack of Food: Never True Current Housing: I Have Housing Concerned About Future Housing: No Difficulty Paying Gas/Electric Bills: No Difficulty Paying for Meds: No Currently Unemployed: No Education: Don't Know Difficulty w/ Childcare or Family Care: No Spiritual care concerns: No <Mag Amador PA-C - Last Filed: 11/09/24 10:36> Exam 2 Narrative: GENERAL: Chronically ill-appearing, well-nourished, and in no acute distress. HEAD: Normocephalic, atraumatic. ENT: Mucous membranes moist. CHEST: Decreased lung sounds with mild rales in the right side. No respiratory distress. HEART: Tachycardic and regular. Normal peripheral pulses. ABDOMEN: Soft, nontender, nondistended. EXTREMITIES: Normal range of motion. No edema. SKIN: Warm, dry, no rash. NEURO: Awake alert, abnormal baseline unable answer questions about history. <Tony Chu MD - Last Filed: 11/08/24 19:09> Course Course Emergency Course: Concern for sepsis. Broad-spectrum antibiotics ordered, blood cultured, 30 milliliter/kilogram IV fluid pulse is being administered. No evidence of abscess or loculated effusion. Temperature increasing and acetaminophen administered. Will require admission hospitalist service. Care being transferred to Dr. Delgado. <Tony Chu MD - Last Filed: 11/08/24 19:09> Concern for sepsis. Broad-spectrum antibiotics ordered, blood cultured, 30 milliliter/kilogram IV fluid pulse is being administered. No evidence of abscess or loculated effusion. Temperature increasing and acetaminophen administered. Will require admission hospitalist service. Care being transferred to Dr. Delgado. Patient care assumed from Dr. Chu at 7:00 p.m.. Patient is hypoxic, hypotensive, has an elevated white count and multifocal pneumonia on chest CT. Antibiotics and 30 cc/kg fluid resuscitation was ordered by previous provider which has been completed. Patient remains persistently hypotensive at 77/41. Central venous catheter was placed her left subclavian vessel and confirmed on bedside x-ray. Peripheral norepinephrine was initially ordered and now switched to central line for vasopressor use. Clinical Partner was consulted and patient will be admitted to the ICU for septic shock likely secondary to multifocal pneumonia. Family members at bedside were made aware of the plan. Hospitalist was made aware and accepted the patient for admit at this time. <Ford Delgado MD - Last Filed: 11/09/24 06:54> Vital Signs Vital signs: Vital Signs Temperature 98.3 F 11/08/24 13:12 Pulse Rate 98 11/08/24 13:12 Respiratory Rate 15 11/08/24 13:12 Blood Pressure 108/60 11/08/24 13:12 Pulse Oximetry 96 11/08/24 13:12 Oxygen Delivery Room Air 11/08/24 13:12 Temperature 97.4 F L 11/09/24 06:00 Pulse Rate 55 L 11/09/24 06:00 Respiratory Rate 15 11/09/24 06:00 Blood Pressure 110/54 L 11/09/24 06:00 Pulse Oximetry 97 11/09/24 09:00 Oxygen Delivery Nasal Cannula 11/09/24 09:00 Oxygen Flow Rate 1 11/09/24 09:00 <Mag Amador PA-C - Last Filed: 11/09/24 10:36> Vital Signs Temperature 98.3 F 11/08/24 13:12 Pulse Rate 98 11/08/24 13:12 Respiratory Rate 15 11/08/24 13:12 Blood Pressure 108/60 11/08/24 13:12 Pulse Oximetry 96 11/08/24 13:12 Oxygen Delivery Room Air 11/08/24 13:12 Temperature 97.4 F L 11/09/24 06:00 Pulse Rate 55 L 11/09/24 06:00 Respiratory Rate 15 11/09/24 06:00 Blood Pressure 110/54 L 11/09/24 06:00 Pulse Oximetry 97 11/09/24 09:00 Oxygen Delivery Nasal Cannula 11/09/24 09:00 Oxygen Flow Rate 1 11/09/24 09:00 <Tony Chu MD - Last Filed: 11/08/24 19:09> Vital Signs Temperature 98.3 F 11/08/24 13:12 Pulse Rate 98 11/08/24 13:12 Respiratory Rate 15 11/08/24 13:12 Blood Pressure 108/60 11/08/24 13:12 Pulse Oximetry 96 11/08/24 13:12 Oxygen Delivery Room Air 11/08/24 13:12 Temperature 97.4 F L 11/09/24 06:00 Pulse Rate 55 L 11/09/24 06:00 Respiratory Rate 15 11/09/24 06:00 Blood Pressure 110/54 L 11/09/24 06:00 Pulse Oximetry 97 11/09/24 09:00 Oxygen Delivery Nasal Cannula 11/09/24 09:00 Oxygen Flow Rate 1 11/09/24 09:00 <Ford Delgado MD - Last Filed: 11/09/24 06:54> Procedures Central Line Placement Left SC: Central Line Date: 11/08/24 <Ford Delgado MD - Last Filed: 11/09/24 06:54> Central Line Time: 21:08 <Ford Delgado MD - Last Filed: 11/09/24 06:54> Discussed w/ the patient/family/POA,the placement of a central venous catheter, including its clinical necessity/indication & associated potential risks, benifits and alternatives.: Yes <Ford Delgado MD - Last Filed: 11/09/24 06:54> The patient/family/POA understand(s) and acknowledge(s) the need to proceed with central venous catheter insertion as an important element of the patient's clinical management.: Yes <Ford Delgado MD - Last Filed: 11/09/24 06:54> Time Out Performed: Yes <Ford Delgado MD - Last Filed: 11/09/24 06:54> Patient Placed on Monitor/Pulse Ox: Yes <Ford Delgado MD - Last Filed: 11/09/24 06:54> Max. Sterile Barrier Technique: Caps, large sterile sheet and hand hygiene <Ford Delgado MD - Last Filed: 11/09/24 06:54> Central Line Prep: 2% chlorhexidine scrub and sterile drapes applied <Frod Delgado MD - Last Filed: 11/09/24 06:54> Technique: seldinger <Ford Delgado MD - Last Filed: 11/09/24 06:54> Local Anesthetic: lidocaine 1% <Ford Delgado MD - Last Filed: 11/09/24 06:54> Amount of anesthesia used (mL): 5 <Ford Delgado MD - Last Filed: 11/09/24 06:54> Ultrasound Used for Placement: No <Ford Delgado MD - Last Filed: 11/09/24 06:54> Central Line Lumen Inserted: triple <Ford Delgado MD - Last Filed: 11/09/24 06:54> Post Procedure: sutured in place, good blood return, all ports aspirated, flushed, capped and sterile dressing applied <Ford Delgado MD - Last Filed: 11/09/24 06:54> Post Procedure X-Ray: tip of catheter in good position and no pneumothorax seen < Ford Delgado MD - Last Filed: 11/09/24 06:54> Patient Tolerated Procedure: well and no complications <Ford Delgado MD - Last Filed: 11/09/24 06:54> Complications: none <Ford Delgado MD - Last Filed: 11/09/24 06:54> MDM - URI/Sore Throat Lab Data Result diagrams: 11/09/24 06:41 11/09/24 06:41 <Mag Amador PA-C - Last Filed: 11/09/24 10:36> Labs: Lab Results 11/08/24 11/08/24 11/08/24 Range/Units 16:53 17:05 20:30 WBC 27.7 H (4.5-10.0) K/mm3 RBC 4.12 L (4.6-6.20) M/mm3 Hgb 12.5 L (14.0-18.0) g/dL Hct 39.6 L (42.0-52.0) % MCV 96.1 (80-100) fl MCH 30.3 (26-34) pg MCHC 31.6 L (32-36) g/dl RDW 13.7 (11.5-14.5) % Plt Count 230 (150-375) k/mm3 MPV 11.2 H (7.4-10.4) fl Immature Gran % (Auto) Not Reportable Neut % (Auto) Not Reportable Lymph % (Auto) Not Reportable [place] % (Auto) Not Reportable Eos % (Auto) Not Reportable Baso % (Auto) Not Reportable Lymph # (Auto) Not Reportable [place] # (Auto) Not Reportable Eos # (Auto) Not Reportable Baso # (Auto) Not Reportable Abs Immat Gran (auto) Not Reportable Absolute Neuts (auto) Not Reportable Absolute Nucleated RBC Not Reportable Total Counted 100 Neutrophils % (Manual) 75 H (46-73) % Band Neutrophils % 4 (0-6) % Lymphocytes % (Manual) 15.0 L (18-44) % Monocytes % (Manual) 6 (3-9) % Nucleated RBC % Not Reportable Abs Neuts (Manual) 21.88 H (1.3-6.7) K/mm3 Abs Lymphs (Manual) 4.15 (1.1-4.5) K/mm3 Abs Monocytes (Manual) 1.66 H (0.1-0.90) K/mm3 Platelet Estimate Adequate (Adequate) Hypochromasia 1+ Schistocytes None seen PT 15.8 H (11.1-14.7) Seconds INR 1.2 APTT 37.6 H (22.3-36.8) Seconds Sodium 139 (137-145) mmol/L Potassium 4.1 (3.4-5.0) mmol/L Chloride 103 (98-107) mmol/L Carbon Dioxide 25 (22-30) mmol/L Anion Gap 11 (4-12) mmol/L BUN 20 (9-20) mg/dL Creatinine 1.13 (0.7-1.3) mg/dL Estim Creat Clear Calc 55 ml/min Estimated GFR > 60 (59 - ) Glucose 124 H (65-110) mg/dL POC Capillary Glucose 126 H (65-105) mg/dl Lactic Acid 1.0 (0.7-2.0) mmol/L Calcium 8.5 (8.4-10.2) mg/dL Total Bilirubin 0.9 (0.2-1.3) mg/dL AST 37 (17-59) U/L ALT 36 (6-50) U/L Alkaline Phosphatase 106 (38-126) U/L Total Protein 7.0 (6.3-8.2) g/dL Albumin 4.0 (3.5-5.1) g/dL Procalcitonin ng/mL Urine Color Dark yellow (Yellow) Urine Appearance Clear (Clear) Urine pH 5.0 (5.0-9.0) Ur Specific [place] 1.027 (1.001-1.035) Urine Protein 1+ H (Negative) mg/dL Urine Glucose (UA) Negative (Negative) mg/dL Urine Ketones 1+ H (Negative) mg/dL Ur Blood (Man) Negative (Negative) Urine Nitrate Negative (Negative) Urine Bilirubin 1+ H (Negative) Urine Urobilinogen 1.0 (<2.0) mg/dL Leukocyte Esterase Rfl Trace H (Negative) PHILIPP/UL Urine RBC 6-10 H (0-2) /hpf Urine WBC 0-5 (0-3) /hpf Ur Squamous Epith Cells Few (Few) /hpf Urine Bacteria None seen /hpf Urine Casts 11-20 Hyaline Casts Present (None) /lpf Influenza A (RT-PCR) Negative (Negative) Influenza B (RT-PCR) Negative (Negative) RSV (RT-PCR) Negative (Negative) SARS-CoV-2 RNA (RT-PCR) Negative (Negative) 11/08/24 Range/Units 21:04 WBC (4.5-10.0) K/mm3 RBC (4.6-6.20) M/mm3 Hgb (14.0-18.0) g/dL Hct (42.0-52.0) % MCV (80-100) fl MCH (26-34) pg MCHC (32-36) g/dl RDW (11.5-14.5) % Plt Count (150-375) k/mm3 MPV (7.4-10.4) fl Immature Gran % (Auto) Neut % (Auto) Lymph % (Auto) [place] % (Auto) Eos % (Auto) Baso % (Auto) Lymph # (Auto) [place] # (Auto) Eos # (Auto) Baso # (Auto) Abs Immat Gran (auto) Absolute Neuts (auto) Absolute Nucleated RBC Total Counted Neutrophils % (Manual) (46-73) % Band Neutrophils % (0-6) % Lymphocytes % (Manual) (18-44) % Monocytes % (Manual) (3-9) % Nucleated RBC % Abs Neuts (Manual) (1.3-6.7) K/mm3 Abs Lymphs (Manual) (1.1-4.5) K/mm3 Abs Monocytes (Manual) (0.1-0.90) K/mm3 Platelet Estimate (Adequate) Hypochromasia Schistocytes PT (11.1-14.7) Seconds INR APTT (22.3-36.8) Seconds Sodium (137-145) mmol/L Potassium (3.4-5.0) mmol/L Chloride (98-107) mmol/L Carbon Dioxide (22-30) mmol/L Anion Gap (4-12) mmol/L BUN (9-20) mg/dL Creatinine (0.7-1.3) mg/dL Estim Creat Clear Calc ml/min Estimated GFR (59 - ) Glucose (65-110) mg/dL POC Capillary Glucose (65-105) mg/dl Lactic Acid (0.7-2.0) mmol/L Calcium (8.4-10.2) mg/dL Total Bilirubin (0.2-1.3) mg/dL AST (17-59) U/L ALT (6-50) U/L Alkaline Phosphatase (38-126) U/L Total Protein (6.3-8.2) g/dL Albumin (3.5-5.1) g/dL Procalcitonin 0.3 ng/mL Urine Color (Yellow) Urine Appearance (Clear) Urine pH (5.0-9.0) Ur Specific [place] (1.001-1.035) Urine Protein (Negative) mg/dL Urine Glucose (UA) (Negative) mg/dL Urine Ketones (Negative) mg/dL Ur Blood (Man) (Negative) Urine Nitrate (Negative) Urine Bilirubin (Negative) Urine Urobilinogen (<2.0) mg/dL Leukocyte Esterase Rfl (Negative) PHILIPP/UL Urine RBC (0-2) /hpf Urine WBC (0-3) /hpf Ur Squamous Epith Cells (Few) /hpf Urine Bacteria /hpf Urine Casts Hyaline Casts (None) /lpf Influenza A (RT-PCR) (Negative) Influenza B (RT-PCR) (Negative) RSV (RT-PCR) (Negative) SARS-CoV-2 RNA (RT-PCR) (Negative) <Mag Amador PA-C - Last Filed: 11/09/24 10:36> Lab Results 11/08/24 11/08/24 11/08/24 Range/Units 16:53 17:05 20:30 WBC 27.7 H (4.5-10.0) K/mm3 RBC 4.12 L (4.6-6.20) M/mm3 Hgb 12.5 L (14.0-18.0) g/dL Hct 39.6 L (42.0-52.0) % MCV 96.1 (80-100) fl MCH 30.3 (26-34) pg MCHC 31.6 L (32-36) g/dl RDW 13.7 (11.5-14.5) % Plt Count 230 (150-375) k/mm3 MPV 11.2 H (7.4-10.4) fl Immature Gran % (Auto) Not Reportable Neut % (Auto) Not Reportable Lymph % (Auto) Not Reportable [place] % (Auto) Not Reportable Eos % (Auto) Not Reportable Baso % (Auto) Not Reportable Lymph # (Auto) Not Reportable [place] # (Auto) Not Reportable Eos # (Auto) Not Reportable Baso # (Auto) Not Reportable Abs Immat Gran (auto) Not Reportable Absolute Neuts (auto) Not Reportable Absolute Nucleated RBC Not Reportable Total Counted 100 Neutrophils % (Manual) 75 H (46-73) % Band Neutrophils % 4 (0-6) % Lymphocytes % (Manual) 15.0 L (18-44) % Monocytes % (Manual) 6 (3-9) % Nucleated RBC % Not Reportable Abs Neuts (Manual) 21.88 H (1.3-6.7) K/mm3 Abs Lymphs (Manual) 4.15 (1.1-4.5) K/mm3 Abs Monocytes (Manual) 1.66 H (0.1-0.90) K/mm3 Platelet Estimate Adequate (Adequate) Hypochromasia 1+ Schistocytes None seen PT 15.8 H (11.1-14.7) Seconds INR 1.2 APTT 37.6 H (22.3-36.8) Seconds Sodium 139 (137-145) mmol/L Potassium 4.1 (3.4-5.0) mmol/L Chloride 103 (98-107) mmol/L Carbon Dioxide 25 (22-30) mmol/L Anion Gap 11 (4-12) mmol/L BUN 20 (9-20) mg/dL Creatinine 1.13 (0.7-1.3) mg/dL Estim Creat Clear Calc 55 ml/min Estimated GFR > 60 (59 - ) Glucose 124 H (65-110) mg/dL POC Capillary Glucose 126 H (65-105) mg/dl Lactic Acid 1.0 (0.7-2.0) mmol/L Calcium 8.5 (8.4-10.2) mg/dL Total Bilirubin 0.9 (0.2-1.3) mg/dL AST 37 (17-59) U/L ALT 36 (6-50) U/L Alkaline Phosphatase 106 (38-126) U/L Total Protein 7.0 (6.3-8.2) g/dL Albumin 4.0 (3.5-5.1) g/dL Procalcitonin ng/mL Urine Color Dark yellow (Yellow) Urine Appearance Clear (Clear) Urine pH 5.0 (5.0-9.0) Ur Specific [place] 1.027 (1.001-1.035) Urine Protein 1+ H (Negative) mg/dL Urine Glucose (UA) Negative (Negative) mg/dL Urine Ketones 1+ H (Negative) mg/dL Ur Blood (Man) Negative (Negative) Urine Nitrate Negative (Negative) Urine Bilirubin 1+ H (Negative) Urine Urobilinogen 1.0 (<2.0) mg/dL Leukocyte Esterase Rfl Trace H (Negative) PHILIPP/UL Urine RBC 6-10 H (0-2) /hpf Urine WBC 0-5 (0-3) /hpf Ur Squamous Epith Cells Few (Few) /hpf Urine Bacteria None seen /hpf Urine Casts 11-20 Hyaline Casts Present (None) /lpf Influenza A (RT-PCR) Negative (Negative) Influenza B (RT-PCR) Negative (Negative) RSV (RT-PCR) Negative (Negative) SARS-CoV-2 RNA (RT-PCR) Negative (Negative) 11/08/24 Range/Units 21:04 WBC (4.5-10.0) K/mm3 RBC (4.6-6.20) M/mm3 Hgb (14.0-18.0) g/dL Hct (42.0-52.0) % MCV (80-100) fl MCH (26-34) pg MCHC (32-36) g/dl RDW (11.5-14.5) % Plt Count (150-375) k/mm3 MPV (7.4-10.4) fl Immature Gran % (Auto) Neut % (Auto) Lymph % (Auto) [place] % (Auto) Eos % (Auto) Baso % (Auto) Lymph # (Auto) [place] # (Auto) Eos # (Auto) Baso # (Auto) Abs Immat Gran (auto) Absolute Neuts (auto) Absolute Nucleated RBC Total Counted Neutrophils % (Manual) (46-73) % Band Neutrophils % (0-6) % Lymphocytes % (Manual) (18-44) % Monocytes % (Manual) (3-9) % Nucleated RBC % Abs Neuts (Manual) (1.3-6.7) K/mm3 Abs Lymphs (Manual) (1.1-4.5) K/mm3 Abs Monocytes (Manual) (0.1-0.90) K/mm3 Platelet Estimate (Adequate) Hypochromasia Schistocytes PT (11.1-14.7) Seconds INR APTT (22.3-36.8) Seconds Sodium (137-145) mmol/L Potassium (3.4-5.0) mmol/L Chloride (98-107) mmol/L Carbon Dioxide (22-30) mmol/L Anion Gap (4-12) mmol/L BUN (9-20) mg/dL Creatinine (0.7-1.3) mg/dL Estim Creat Clear Calc ml/min Estimated GFR (59 - ) Glucose (65-110) mg/dL POC Capillary Glucose (65-105) mg/dl Lactic Acid (0.7-2.0) mmol/L Calcium (8.4-10.2) mg/dL Total Bilirubin (0.2-1.3) mg/dL AST (17-59) U/L ALT (6-50) U/L Alkaline Phosphatase (38-126) U/L Total Protein (6.3-8.2) g/dL Albumin (3.5-5.1) g/dL Procalcitonin 0.3 ng/mL Urine Color (Yellow) Urine Appearance (Clear) Urine pH (5.0-9.0) Ur Specific [place] (1.001-1.035) Urine Protein (Negative) mg/dL Urine Glucose (UA) (Negative) mg/dL Urine Ketones (Negative) mg/dL Ur Blood (Man) (Negative) Urine Nitrate (Negative) Urine Bilirubin (Negative) Urine Urobilinogen (<2.0) mg/dL Leukocyte Esterase Rfl (Negative) PHILIPP/UL Urine RBC (0-2) /hpf Urine WBC (0-3) /hpf Ur Squamous Epith Cells (Few) /hpf Urine Bacteria /hpf Urine Casts Hyaline Casts (None) /lpf Influenza A (RT-PCR) (Negative) Influenza B (RT-PCR) (Negative) RSV (RT-PCR) (Negative) SARS-CoV-2 RNA (RT-PCR) (Negative) <Tony Chu MD - Last Filed: 11/08/24 19:09> Lab Results 11/08/24 11/08/24 11/08/24 Range/Units 16:53 17:05 20:30 WBC 27.7 H (4.5-10.0) K/mm3 RBC 4.12 L (4.6-6.20) M/mm3 Hgb 12.5 L (14.0-18.0) g/dL Hct 39.6 L (42.0-52.0) % MCV 96.1 (80-100) fl MCH 30.3 (26-34) pg MCHC 31.6 L (32-36) g/dl RDW 13.7 (11.5-14.5) % Plt Count 230 (150-375) k/mm3 MPV 11.2 H (7.4-10.4) fl Immature Gran % (Auto) Not Reportable Neut % (Auto) Not Reportable Lymph % (Auto) Not Reportable [place] % (Auto) Not Reportable Eos % (Auto) Not Reportable Baso % (Auto) Not Reportable Lymph # (Auto) Not Reportable [place] # (Auto) Not Reportable Eos # (Auto) Not Reportable Baso # (Auto) Not Reportable Abs Immat Gran (auto) Not Reportable Absolute Neuts (auto) Not Reportable Absolute Nucleated RBC Not Reportable Total Counted 100 Neutrophils % (Manual) 75 H (46-73) % Band Neutrophils % 4 (0-6) % Lymphocytes % (Manual) 15.0 L (18-44) % Monocytes % (Manual) 6 (3-9) % Nucleated RBC % Not Reportable Abs Neuts (Manual) 21.88 H (1.3-6.7) K/mm3 Abs Lymphs (Manual) 4.15 (1.1-4.5) K/mm3 Abs Monocytes (Manual) 1.66 H (0.1-0.90) K/mm3 Platelet Estimate Adequate (Adequate) Hypochromasia 1+ Schistocytes None seen PT 15.8 H (11.1-14.7) Seconds INR 1.2 APTT 37.6 H (22.3-36.8) Seconds Sodium 139 (137-145) mmol/L Potassium 4.1 (3.4-5.0) mmol/L Chloride 103 (98-107) mmol/L Carbon Dioxide 25 (22-30) mmol/L Anion Gap 11 (4-12) mmol/L BUN 20 (9-20) mg/dL Creatinine 1.13 (0.7-1.3) mg/dL Estim Creat Clear Calc 55 ml/min Estimated GFR > 60 (59 - ) Glucose 124 H (65-110) mg/dL POC Capillary Glucose 126 H (65-105) mg/dl Lactic Acid 1.0 (0.7-2.0) mmol/L Calcium 8.5 (8.4-10.2) mg/dL Total Bilirubin 0.9 (0.2-1.3) mg/dL AST 37 (17-59) U/L ALT 36 (6-50) U/L Alkaline Phosphatase 106 (38-126) U/L Total Protein 7.0 (6.3-8.2) g/dL Albumin 4.0 (3.5-5.1) g/dL Procalcitonin ng/mL Urine Color Dark yellow (Yellow) Urine Appearance Clear (Clear) Urine pH 5.0 (5.0-9.0) Ur Specific [place] 1.027 (1.001-1.035) Urine Protein 1+ H (Negative) mg/dL Urine Glucose (UA) Negative (Negative) mg/dL Urine Ketones 1+ H (Negative) mg/dL Ur Blood (Man) Negative (Negative) Urine Nitrate Negative (Negative) Urine Bilirubin 1+ H (Negative) Urine Urobilinogen 1.0 (<2.0) mg/dL Leukocyte Esterase Rfl Trace H (Negative) PHILIPP/UL Urine RBC 6-10 H (0-2) /hpf Urine WBC 0-5 (0-3) /hpf Ur Squamous Epith Cells Few (Few) /hpf Urine Bacteria None seen /hpf Urine Casts 11-20 Hyaline Casts Present (None) /lpf Influenza A (RT-PCR) Negative (Negative) Influenza B (RT-PCR) Negative (Negative) RSV (RT-PCR) Negative (Negative) SARS-CoV-2 RNA (RT-PCR) Negative (Negative) 11/08/24 Range/Units 21:04 WBC (4.5-10.0) K/mm3 RBC (4.6-6.20) M/mm3 Hgb (14.0-18.0) g/dL Hct (42.0-52.0) % MCV (80-100) fl MCH (26-34) pg MCHC (32-36) g/dl RDW (11.5-14.5) % Plt Count (150-375) k/mm3 MPV (7.4-10.4) fl Immature Gran % (Auto) Neut % (Auto) Lymph % (Auto) [place] % (Auto) Eos % (Auto) Baso % (Auto) Lymph # (Auto) [place] # (Auto) Eos # (Auto) Baso # (Auto) Abs Immat Gran (auto) Absolute Neuts (auto) Absolute Nucleated RBC Total Counted Neutrophils % (Manual) (46-73) % Band Neutrophils % (0-6) % Lymphocytes % (Manual) (18-44) % Monocytes % (Manual) (3-9) % Nucleated RBC % Abs Neuts (Manual) (1.3-6.7) K/mm3 Abs Lymphs (Manual) (1.1-4.5) K/mm3 Abs Monocytes (Manual) (0.1-0.90) K/mm3 Platelet Estimate (Adequate) Hypochromasia Schistocytes PT (11.1-14.7) Seconds INR APTT (22.3-36.8) Seconds Sodium (137-145) mmol/L Potassium (3.4-5.0) mmol/L Chloride (98-107) mmol/L Carbon Dioxide (22-30) mmol/L Anion Gap (4-12) mmol/L BUN (9-20) mg/dL Creatinine (0.7-1.3) mg/dL Estim Creat Clear Calc ml/min Estimated GFR (59 - ) Glucose (65-110) mg/dL POC Capillary Glucose (65-105) mg/dl Lactic Acid (0.7-2.0) mmol/L Calcium (8.4-10.2) mg/dL Total Bilirubin (0.2-1.3) mg/dL AST (17-59) U/L ALT (6-50) U/L Alkaline Phosphatase (38-126) U/L Total Protein (6.3-8.2) g/dL Albumin (3.5-5.1) g/dL Procalcitonin 0.3 ng/mL Urine Color (Yellow) Urine Appearance (Clear) Urine pH (5.0-9.0) Ur Specific Murdock (1.001-1.035) Urine Protein (Negative) mg/dL Urine Glucose (UA) (Negative) mg/dL Urine Ketones (Negative) mg/dL Ur Blood (Man) (Negative) Urine Nitrate (Negative) Urine Bilirubin (Negative) Urine Urobilinogen (<2.0) mg/dL Leukocyte Esterase Rfl (Negative) PHILIPP/UL Urine RBC (0-2) /hpf Urine WBC (0-3) /hpf Ur Squamous Epith Cells (Few) /hpf Urine Bacteria /hpf Urine Casts Hyaline Casts (None) /lpf Influenza A (RT-PCR) (Negative) Influenza B (RT-PCR) (Negative) RSV (RT-PCR) (Negative) SARS-CoV-2 RNA (RT-PCR) (Negative) <Ford Delgado MD - Last Filed: 11/09/24 06:54> Imaging Data Radiologist's impression: ITS Impressions Chest X-Ray 11/08/24 15:33 IMPRESSION: Right hilar mass or masslike consolidation with right lung volume loss. Moderate right effusion. Chest CT 11/08/24 17:53 IMPRESSION: Multifocal consolidation, likely infectious in origin, for which follow-up to resolution is recommended as a malignancy may have a similar appearance. <Tony Chu MD - Last Filed: 11/08/24 19:09> Critical Care Time Critical Care Time Critical Care Time: Yes <Tony Chu MD - Last Filed: 11/08/24 19:09> Total Critical Care Time: 35 <Tony Chu MD - Last Filed: 11/08/24 19:09> Discharge Plan Discharge Clinical Impression: Pneumonia Qualifiers: Pneumonia type: due to unspecified organism Laterality: bilateral Lung location: unspecified part of lung Qualified Code(s): J18.9 - Pneumonia, unspecified organism Sepsis Qualifiers: Sepsis type: sepsis due to unspecified organism Sepsis acute organ dysfunction status: with acute organ dysfunction Severe sepsis acute organ dysfunction type: acute respiratory failure Acute respiratory failure type: with hypoxia Severe sepsis shock status: with septic shock Qualified Code(s): A41.9 - Sepsis, unspecified organism; R65.21 - Severe sepsis with septic shock; J96.01 - Acute respiratory failure with hypoxia <Mag Amador PA-C - Last Filed: 11/09/24 10:36> Patient Disposition: Still a Patient <Mag Amador PA-C - Last Filed: 11/09/24 10:36> Condition: Serious <Mag Amador PA-C - Last Filed: 11/09/24 10:36>
--- NOTE | 2024-11-08 15:02 | ECG_ITS ---
Test Date: 2024-11-08 16:35:17 Measurements Intervals [place] Rate: 93 P: 38 FL: 181 QRS: 27 QRSD: 85 T: 34 QT: 349 QTc: 435 Interpretive Statements SINUS RHYTHM BASELINE ARTIFACT- I, II, III, AVR, AVL, AVF, V1-V6 NORMAL ECG Compared to ECG 04/17/2024 01:24:15 NO SIGNIFICANT CHANGE Electronically Signed On 11-08-2024 16:59:37 CDT by Oscar Lopez D.O.
[2024-11-08 17:00] LABS: Hematocrit 39.6 % (42.0-52.0); Hemoglobin 12.5 g/dL (14.0-18.0); Mean Corpuscular HGB Conc 31.6 g/dl (32-36); Mean Corpuscular Hemoglobin 30.3 pg (26-34); Mean Corpuscular Volume 96.1 fl (80-100); Mean Platelet Volume 11.2 fl (7.4-10.4); Platelet Count Result 230 k/mm3 (150-375); Red Blood Count 4.12 M/mm3 (4.6-6.20); Red Cell Distribution Width 13.7 % (11.5-14.5); White Blood Count 27.7 K/mm3 (4.5-10.0)
[2024-11-08 17:15] LABS: Alanine Aminotransferase 36 U/L (6-50); Alkaline Phosphatase 106 U/L (38-126); Anion Gap 11 mmol/L (4-12); Aspartate Amino Transferase 37 U/L (17-59); Bilirubin,Total 0.9 mg/dL (0.2-1.3); Blood Urea Nitrogen 20 mg/dL (9-20); Calcium 8.5 mg/dL (8.4-10.2); Carbon Dioxide 25 mmol/L (22-30); Chloride 103 mmol/L (98-107); Estimated CRCL calculation 55 ml/min; Estimated Glomerular Filt Rate > 60; Glucose 124 mg/dL (65-110); Potassium 4.1 mmol/L (3.4-5.0); Sodium 139 mmol/L (137-145)
[2024-11-08] MEDS: SODIUM CHLORIDE 0.9% IV 1,000 ML 999 ML IV CONT ×3 (17:23→17:24)
--- NOTE | 2024-11-08 17:35 | PC.NURSE ---
CT called and notified pt has IV and is ready to go for his scan.
[2024-11-08 17:38] LABS: INR 1.2; Prothrombin Time 15.8 Seconds (11.1-14.7)
[2024-11-08 17:39] LABS: Partial Thromboplastin Time 37.6 Seconds (22.3-36.8)
[2024-11-08 17:50] LABS: Influenza A QL RT-PCR Negative (Negative); Influenza B QL RT-PCR Negative (Negative); RSV RNA, RT-PCR Negative (Negative); SARS-CoV-2 RNA PCR Negative (Negative)
--- NOTE | 2024-11-08 17:51 | PC.NURSE ---
Pt. to CT.
[2024-11-08 17:56] LABS: Band Neutrophils Percent 4 % (0-6); Lymphocytes Absolute Manual 4.15 K/mm3 (1.1-4.5); Monocytes Absolute Manual 1.66 K/mm3 (0.1-0.90); Monocytes Percent Manual 6 % (3-9); Neutrophils Absolute Manual 21.88 K/mm3 (1.3-6.7); Neutrophils Percent Manual 75 % (46-73); Platelet Estimate Adequate (Adequate); Total Cells Counted 100
[2024-11-08 17:57] LABS: Hypochromasia 1+; Schistocytes None Seen
[2024-11-08 18:05] LABS: Add Urine Microscopic? YES; Appearance Urine Clear (Clear); Bacteria Urine None Seen /hpf; Bilirubin Urine 1+ (Negative); Blood Urine Negative (Negative); Color Urine Dark Yellow (Yellow); Glucose Urine UA Negative (Negative); Hyaline Casts Urine Present /lpf; Ketones Urine 1+ mg/dL (Negative); Leukocyte Esterase Ur Trace LEU/UL (Negative); Nitrate Urine Negative (Negative); Protein Urine 1+ mg/dL (Negative); Specific Grav Ur 1.027 (1.001-1.035); Squamous Epithelial Cell Urine Few /hpf (Few); WBC Urine 0-5 /hpf (0-3)
--- OUTSIDE RECORDS SUMMARY | 2024-11-08 18:37 | XMS_ITS | Referral Summary ---
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 Gender Identity Not on file Sexual Orientation Not on file Last Filed Vital Signs Vital Sign Reading Time Taken Comments Blood Pressure 120/82 08/05/2024 3:12 PM FLOOR AND WALL APPLIER LIQUID Pulse 48 08/05/2024 3:12 PM FLOOR AND WALL APPLIER LIQUID Temperature 36.2 C (97.1 F) 07/12/2022 1:09 PM FLOOR AND WALL APPLIER LIQUID Respiratory Rate 20 07/12/2022 1:09 PM FLOOR AND WALL APPLIER LIQUID Oxygen Saturation 91% 07/12/2022 1:09 PM FLOOR AND WALL APPLIER LIQUID Inhaled Oxygen Concentration - - Weight 75.3 kg (166 lb) 08/05/2024 3:12 PM FLOOR AND WALL APPLIER LIQUID Height 175.3 cm (5' 9 ) 08/05/2024 3:12 PM FLOOR AND WALL APPLIER LIQUID Body Mass Index 24.51 08/05/2024 3:12 PM FLOOR AND WALL APPLIER LIQUID Plan of Treatment Not on file Insurance IDPA [facility] MEDICARE ADVANTAGE [facility] PLAN [facility] MEDICARE ADVANTAGE IDPA Care Teams Mirror Framer Relationship Specialty Start Date End Date Boubacar Gutierrez MD [address] [id number] PCP - General Internal Medicine 10/30/18
--- OUTSIDE RECORDS SUMMARY | 2024-11-08 18:37 | XMS_ITS | CONTINUITY OF CARE DOCUMENT ---
Author Name talya enacory Address Unknown Organization [facility] Address [id number] [place] [address] [address] [place] [address] Phone [phone] Care Team Providers Care Application Support Developer Name Role Phone Andreina CHAHAL, Los Unavailable Los Hdz MD Unavailable ROLANDO CHAHAL [facility] Unavailable [phone] PROBLEMS Condition Status Date Provider Notes Cardiology [...] In-person encounter Office Visit Los Hdz MD [facility] 02/23 - 02/23 In-person encounter Office Visit Los Hdz MD [facility] ? Sleep apneaHeart failure with Left Jonatan tricular Ejection Fraction (LVEF) 41-49% 02/25 - 02/25 In-person encounter Office Visit Los Hdz MD [facility] 03/12 - 03/13 In-person encounter Office Visit Los Hdz MD [facility] 01/18 - 01/21 In-person encounter Office Visit Los Hdz MD [facility] Cardiology examinationHyperlipidemiaHypertensionShortness of breath (SOB)Dyspnea on exertion VITAL SIGNS Date Observation Value Provider Body Mass Index (Ratio) 24.27 kg/m2 Juan Hdz MD oxygen saturation, oximetry 97 % Yael [facility] blood pressure, diastolic 77 mm[Hg] Sergio estradaa [facility] blood pressure, systolic 123 mm[Hg] Ronel purdy [facility] pulse rate 61 /min Yael [facility] weight E&M 155 [lb_av] Yael [facility] height E&M 67 [in_i] Yael [facility] Body Mass Index (Ratio) 25.53 kg/m2 Juan [...] Dobson blood pressure, diastolic 72 mm[Hg] [facility], systolic 115 mm[Hg] Allison [facility] Body Mass Index (Ratio) 25.06 kg/m2 Juan [...] blood pressure, diastolic 77 mm[Hg] Lavinia islas Adnrade blood pressure, systolic 123 mm[Hg] Juan helle Irons oxygen saturation, oximetry 96 % Anna Andrade pulse rate 74 /min Anna sales weight E&M 178 [lb_av] Anna sales blood pressure, cuff size large Lavinia islas Andrade respiratory rate E&M 16 /min Kitty Andrade height E&M 67 [in_i] Anna sales Body Mass Index (Ratio) 27.88 kg/m2 Juan Hdz MD blood pressure, cuff size large Lavinia islas Irons blood pressure, diastolic 80 mm[Hg] Al roshan Irons blood pressure, systolic 130 mm[Hg] Juan helle [...] 1 tablet by mouth twice daily [facility] carvedilol 6.25 mg tablet active [...] FOR 30 DAYS - Filiberto Watt NP hydrochlorothiazide 12.5 mg capsule completed TAKE [...] NP smoking status Former 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 E&M revi ewed - [...] Payer name Policy type / Coverage type [place] red [employer] party ID AARP MEDICARE ADVANTAGE ([facility] COMPLETE PPO) Other [id number] [facility] Medicaid 0 [id number] ADVANCE DIRECTIVES Name Date DISCUSSED - NO DECISION MADE DISCUSSED - NO DECISION MADE TREATMENT PLAN Date Name Performer [id number],S, Los cm MD [id number],SLos MD [id number],SLos MD [id number],S, Los cm MD [id number],SLos MD [id number],S, Los cm MD [id number],S, Los cm MD [id number],S, Los cm MD [id number],SLos MD [id number],S, Los cm MD [id number],S, Los cm MD [id number],S, Los cm MD Cardiology:I don't t hink [...]
--- OUTSIDE RECORDS SUMMARY | 2024-11-08 18:37 | XMS_ITS | Clinical Summary ---
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 Gender Identity Not on file Sexual Orientation Not on file Obstetrics History Last Filed Vital Signs Vital Sign Reading Time Taken Comments Blood Pressure 120/82 08/05/2024 3:12 PM CERTIFIED NURSING ATTENDANT Pulse 48 08/05/2024 3:12 PM CERTIFIED NURSING ATTENDANT Temperature 36.2 C (97.1 F) 07/12/2022 1:09 PM CERTIFIED NURSING ATTENDANT Respiratory Rate 20 07/12/2022 1:09 PM CERTIFIED NURSING ATTENDANT Oxygen Saturation 91% 07/12/2022 1:09 PM CERTIFIED NURSING ATTENDANT Inhaled Oxygen Concentration - - Weight 75.3 kg (166 lb) 08/05/2024 3:12 PM CERTIFIED NURSING ATTENDANT Height 175.3 cm (5' 9 ) 08/05/2024 3:12 PM CERTIFIED NURSING ATTENDANT Body Mass Index 24.51 08/05/2024 3:12 PM CERTIFIED NURSING ATTENDANT Plan of Treatment Health Maintenance Due Date [...] vaccine 65+ Completed 03/28/2021, 09/11 Insurance IDPA [facility] MEDICARE ADVANTAGE [facility] PLAN [facility] MEDICARE ADVANTAGE IDPA Care Teams Power Generation Equipment Repairer Relationship Specialty Start Date End Date Boubacar Gutierrez MD [address] [place] [id number] PCP - General Internal Medicine 10/30/18
--- OUTSIDE RECORDS SUMMARY | 2024-11-08 18:37 | XMS_ITS | Encounter Summary ---
Author Organization [facility] Address [address] [facility] [place] [address] Care Team Providers Care Diamond Grinder Name Role Phone Luda Hamlin Primary Care Provider Unavailab le Encounter Details Date Type Department Care Team ([facility] Contact Info) Description 10/27/2024 Results Follow-Up [facility] - Dermatology [address] [place] [phone] José Miguel Fritz MD [address] [facility] [place] [phone] Social History Tobacco Use Types Packs/Day Years [...] Office Visit [facility] [address] [place] [phone] Isaak Peterson MD [address] [place] [address] [address] [place] [address] documented as of this encounter Visit Diagnoses Not on filedocumented in this encounter Care Teams Diamond Grinder Relationship Specialty Start Date End Date Luda Hamlin Update Information PCP - General 03/25/22 documented as of this encounter
--- OUTSIDE RECORDS SUMMARY | 2024-11-08 18:37 | XMS_ITS | Clinical Summary ---
Author Organization [facility] Address [address] [facility] [place] [address] Care Team Providers Care Math Specialist Name Role Phone Luda Hamlin Primary Care Provider Unavailab le Source Comments [facility],non-owned Affiliates and Associated Physician Practices is amultgrant hospitale site organization consisting of ambulatory clinics and hospital sitesin [place], [place], [place] and [place]. This disclosure is being madepursuant to the Care Everywhere program and may not contain all information available regarding this patient. Last updated 18.[employer] [facility] Allergies No known active allergies Medications * [...] Results Follow-Up [facility]erm[facility] [address] [place] [phone] José Miguel Fritz MD 10/12/2024 2:00 PM CDT Office Visit [facility] Dermatology [address] [place] [phone] Isaak Peterson MD Rash and other nonspecific [...] Description 10/18/2025 1:00 PM CDT Office Visit [facility] Dermatology [address] [place] [address], [place] [address] Isaak Peterson MD [address] [place] [address] [address] [place] [address] Health Maintenance Due Date Last Done Comments [...] Final Result from Last 3 Months Insurance [facility] MEDICAID [facility] MANAGED MEDICARE ADV [facility] MANAGED MEDICARE [facility] MEDICAID - OUT OF STATE Care Teams Math Specialist Relationship Specialty Start Date End Date Luda Hamlin Update Information PCP - General 03/25/22
[2024-11-08] MEDS: ACETAMINOPHEN 325 MG TABLET 650 MG PO (19:07)
[2024-11-08] MEDS: AZITHROMYCIN 500 MG/NS 250 ML 500 MG/250 ML BAG 250 MG IVPB (19:08)
[2024-11-08] MEDS: SODIUM CHLORIDE 0.9% IV 300 ML 999 ML IV CONT (20:30)
--- NOTE | 2024-11-08 20:30 | PC.NURSE ---
Dr. Delgado at bedside speaking with pt. and pt. KARIE.
[2024-11-08 20:33] LABS: Glucose Point of Care 126 mg/dl (65-105)
--- NOTE | 2024-11-08 20:55 | PC.NURSE ---
Dr. Delgado at bedside setting up for central line insertion. Consent signed by pt. KARIE Lantigua.
[2024-11-08] MEDS: NOREPINEPHRINE 8 MG/D5W 250 ML 8 MG/250 ML BAG 9.38 MG IV CONT (21:17)
[2024-11-08] MEDS: LACTATED RINGERS 1,000 ML 100 ML IV CONT (21:35)
[2024-11-08 22:35] LABS: Procalcitonin 0.3 ng/mL
--- NOTE | 2024-11-08 23:10 | PC.NURSE ---
This patient, Reginald Haile, was admitted to Intensive Care Unit-5. Patient/family oriented to hospital policies and general routines including ID bracelet, bed and alarms, visiting hours, pain management, procedures, bathroom and other care routines, personal items, smoking policy, room service/diet, and visiting hours. Information on how to activate the Rapid Response Team has been discussed. Patient/Family are encouraged to report perceived risks to care and to ask questions if they do not understand what they are told or what they should do.
--- NOTE | 2024-11-08 23:27 | PC.NURSE ---
Pt. primary contact scotty brown phoned and updated that pt. is in ICU room 205.
[2024-11-08] MEDS: CENTRAL LINE FLUSH 10 ML IV PUSH (23:34)
--- NOTE | 2024-11-08 23:35 | P.HP_ITS ---
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 The patient is only oriented did name due to prior history of traumatic brain injury. He is unable to provide any history. Family reports patient has been coughing from month and they ?had enough of it?. He has had increasing generalized weakness. His family members have been having trouble taking care of him. He is on oxygen at night due to suspected sleep apnea. On initial arrival to the ER patient was afebrile but hypotensive with systolic blood pressures in the 70s. Patient remained hypotensive despite receiving 30 mL/kilos bolus. Patient has a history of tending towards the bradycardic state. And he remained bradycardic despite hypotension. However he is on home beta- blockers. A left subclavian was placed by ER provider and repeat chest x-ray after central line placement demonstrated significant increased opacification of the right hemithorax suspicious for increasing pleural effusion likely moderate. Patient remains stable on 2 L nasal cannula. Patient was admitted to the ICU due to need for pressors. The patient was started on initial antibiotic therapy with Rocephin and azithromycin after blood cultures were obtained. Review of Systems 2 Review of Systems: Unobtainable due to the patient's baseline confusion from prior traumatic brain injury [facility] Past Medical History Medical History (Updated 11/09/24 @ 10:36 by Mag Amador PA-C) Seizure disorder Constipation Vitamin D deficiency Hyperlipidemia Essential hypertension History of traumatic brain injury Surgical History Surgical History (Updated 11/09/24 @ 09:21 by Gerri Weiss DO) [employer] (ventriculoperitoneal) shunt status History of cranial surgery At least 30 years ago Family History Family History Other Unknown family medical history Social History Social History (Updated 11/09/24 @ 09:23 by Gerri Weiss DO) Social History: Code status: Full code Smoking status: Former smoker Tobacco type: cigarettes Alcohol intake: former Substance use: unknown Do You Feel Safe in your Home?: Yes Lack of Transportation: No Lack of Food: Never True Current Housing: I Have Housing Concerned About Future Housing: No Difficulty Paying Gas/Electric Bills: No Difficulty Paying for Meds: No Currently Unemployed: No Education: Don't Know Difficulty w/ Childcare or Family Care: No Spiritual care concerns: No Meds Home Medications and Allergies Home Medications ?Medication ?Instructions ?Recorded ?Confirmed ?Type Mucinex DM 600 mg PO Q12H 04/17/24 11/08/24 History aspirin 81 mg tablet,delayed 81 mg PO DAILY 04/17/24 11/08/24 History release carvedilol 6.25 mg tablet 6.25 mg PO BID 04/17/24 11/08/24 History furosemide 20 mg tablet 20 mg PO DAILY PRN Edema 04/17/24 11/08/24 History levetiracetam 500 mg tablet 500 mg PO BID 04/17/24 11/08/24 History losartan 50 mg tablet 50 mg PO DAILY 04/17/24 11/08/24 History pantoprazole 40 mg tablet,delayed 40 mg PO DAILY 04/17/24 11/08/24 History release atorvastatin 40 mg tablet 40 mg PO QPM 11/08/24 11/08/24 History Lactobacillus acidophilus and 1 cap PO DAILY 11/09/24 11/09/24 History rhamnosus 15 billion cell capsule (Probiotic) biotin 5,000 mcg disintegrating 5,000 mcg PO DAILY 11/09/24 11/09/24 History tablet cholecalciferol (vitamin D3) 50 2,000 unit PO DAILY 11/09/24 11/09/24 History mcg (2,000 unit) capsule coenzyme Q10 100 mg capsule 100 mg PO DAILY 11/09/24 11/09/24 History (CoQ-10) docusate sodium 100 mg capsule 100 mg PO TID 11/09/24 11/09/24 History oundoofmyuwf-fgnvbjbj-ipnqof 1 tablet PO DAILY 11/09/24 11/09/24 History tablet (Multivitamin 50 Plus tablet) zinc 50 mg tablet 50 mg PO DAILY 11/09/24 11/09/24 History Allergies Allergy/AdvReac Type Severity Reaction Status Date / Time No Known Allergies Allergy Verified 11/08/24 13:16 Vital Signs Vital Signs - 24 hr 11/08/24 13:12 11/08/24 15:59 11/08/24 16:45 Temperature 98.3 F 100.3 F H Pulse Rate 98 106 H Respiratory Rate 15 18 Blood Pressure 108/60 78/48 L Pulse Oximetry 96 87 L 89 L Oxygen Delivery Room Air Room Air Oxygen Flow Rate 11/08/24 16:47 11/08/24 18:26 11/08/24 18:36 Temperature 100.0 F H Pulse Rate 79 Respiratory Rate 27 H Blood Pressure 86/49 L Pulse Oximetry 94 96 Oxygen Delivery Nasal Cannula Oxygen Flow Rate 2 11/08/24 19:26 11/08/24 20:48 11/08/24 21:17 Temperature 98 F Pulse Rate 86 86 57 L Respiratory Rate 22 H 16 Blood Pressure 96/60 L 77/41 L 79/44 L Pulse Oximetry 98 96 Oxygen Delivery Oxygen Flow Rate 11/08/24 21:23 11/08/24 21:29 11/08/24 21:54 Temperature Pulse Rate 59 L 59 L 57 L Respiratory Rate 16 Blood Pressure 78/41 L 94/68 L 100/48 L Pulse Oximetry 99 Oxygen Delivery Oxygen Flow Rate 11/08/24 22:10 11/08/24 23:00 11/08/24 23:16 Temperature Pulse Rate 56 L 56 L 100 Respiratory Rate 18 23 H Blood Pressure 108/47 L 106/52 L Pulse Oximetry 98 98 Oxygen Delivery Oxygen Flow Rate 11/08/24 23:18 11/08/24 23:32 11/08/24 23:32 Temperature 97.7 F Pulse Rate 100 56 L Respiratory Rate 21 H Blood Pressure 127/55 L Pulse Oximetry 93 Oxygen Delivery Oxygen Flow Rate Exam 2 Narrative: Weight 73.6 kg BMI 24 Const: Other: Acutely ill-appearing, appears older than stated age HENMT: Other: Irregularities to the left side of the skull and high consistent with prior trauma, mucous membranes are dry, edentulous in upper and lower jaw Eyes: Other: Posttraumatic changes the eye, although pupils do seem relatively equal the patient's left eye seems to be somewhat roving Neck: Other: Trachea is midline no gross thyromegaly Resp: Other: Decreased breath sounds bilateral bases right greater than left, no wheezing, no rhonchi Cardio: Other: Regular rate, regular rhythm, no murmurs GI: Other: Soft, distended, nontender, positive bowel sounds Skin: Other: Hot to touch, non jaundice, diaphoretic, mottling of the lower extremities, 2nd cap refill Neuro: Other: Patient is easy to arouse with verbal stimuli and follows some commands, has non chronic in movements of the eyes, pupils appear equal although, lid lag of the left eye, difficult to assess facial symmetry, no tongue deviation, peripheral sensations appear to be grossly intact Extrem: Other: No clubbing, cyanosis or edema moves all extremities equally Psych: Other: Flat affect, cooperative, poor judgment and insight H&P: Results Labs Labs: Laboratory Tests 11/08/24 16:53 11/08/24 16:53 11/08/24 11/08/24 11/08/24 16:53 17:05 20:30 WBC 27.7 H RBC 4.12 L Hgb 12.5 L Hct 39.6 L MCV 96.1 MCH 30.3 MCHC 31.6 L RDW 13.7 Plt Count 230 MPV 11.2 H Immature Gran % (Auto) Not Reportable Neut % (Auto) Not Reportable Lymph % (Auto) Not Reportable [place] % (Auto) Not Reportable Eos % (Auto) Not Reportable Baso % (Auto) Not Reportable Lymph # (Auto) Not Reportable [place] # (Auto) Not Reportable Eos # (Auto) Not Reportable Baso # (Auto) Not Reportable Abs Immat Gran (auto) Not Reportable Absolute Neuts (auto) Not Reportable Absolute Nucleated RBC Not Reportable Total Counted 100 Neutrophils % (Manual) 75 H Band Neutrophils % 4 Lymphocytes % (Manual) 15.0 L Monocytes % (Manual) 6 Nucleated RBC % Not Reportable Abs Neuts (Manual) 21.88 H Abs Lymphs (Manual) 4.15 Abs Monocytes (Manual) 1.66 H Platelet Estimate Adequate Hypochromasia 1+ Schistocytes None seen PT 15.8 H INR 1.2 APTT 37.6 H Sodium 139 Potassium 4.1 Chloride 103 Carbon Dioxide 25 Anion Gap 11 BUN 20 Creatinine 1.13 Estim Creat Clear Calc 55 Estimated GFR > 60 Glucose 124 H POC Capillary Glucose 126 H Lactic Acid 1.0 Calcium 8.5 Total Bilirubin 0.9 AST 37 ALT 36 Alkaline Phosphatase 106 Total Protein 7.0 Albumin 4.0 Procalcitonin Urine Color Dark yellow Urine Appearance Clear Urine pH 5.0 Ur Specific [place] 1.027 Urine Protein 1+ H Urine Glucose (UA) Negative Urine Ketones 1+ H Ur Blood (Man) Negative Urine Nitrate Negative Urine Bilirubin 1+ H Urine Urobilinogen 1.0 Leukocyte Esterase Rfl Trace H Urine RBC 6-10 H Urine WBC 0-5 Ur Squamous Epith Cells Few Urine Bacteria None seen Urine Casts 11-20 Hyaline Casts Present Influenza A (RT-PCR) Negative Influenza B (RT-PCR) Negative RSV (RT-PCR) Negative SARS-CoV-2 RNA (RT-PCR) Negative 11/08/24 21:04 WBC RBC Hgb Hct MCV MCH MCHC RDW Plt Count MPV Immature Gran % (Auto) Neut % (Auto) Lymph % (Auto) Star[place] % (Auto) Eos % (Auto) Baso % (Auto) Lymph # (Auto) [place] # (Auto) Eos # (Auto) Baso # (Auto) Abs Immat Gran (auto) Absolute Neuts (auto) Absolute Nucleated RBC Total Counted Neutrophils % (Manual) Band Neutrophils % Lymphocytes % (Manual) Monocytes % (Manual) Nucleated RBC % Abs Neuts (Manual) Abs Lymphs (Manual) Abs Monocytes (Manual) Platelet Estimate Hypochromasia Schistocytes PT INR APTT Sodium Potassium Chloride Carbon Dioxide Anion Gap BUN Creatinine Estim Creat Clear Calc Estimated GFR Glucose POC Capillary Glucose Lactic Acid Calcium Total Bilirubin AST ALT Alkaline Phosphatase Total Protein Albumin Procalcitonin 0.3 Urine Color Urine Appearance Urine pH Ur Specific [place] Urine Protein Urine Glucose (UA) Urine Ketones Ur Blood (Man) Urine Nitrate Urine Bilirubin Urine Urobilinogen Leukocyte Esterase Rfl Urine RBC Urine WBC Ur Squamous Epith Cells Urine Bacteria Urine Casts Hyaline Casts Influenza A (RT-PCR) Influenza B (RT-PCR) RSV (RT-PCR) SARS-CoV-2 RNA (RT-PCR) Impressions Chest X-Ray 11/08/24 15:33 IMPRESSION: Right hilar mass or masslike consolidation with right lung volume loss. Moderate right effusion. Chest CT 11/08/24 17:53 IMPRESSION: Multifocal consolidation, likely infectious in origin, for which follow-up to resolution is recommended as a malignancy may have a similar appearance. Chest X-Ray 11/08/24 21:39 IMPRESSION: New left subclavian central line terminating at the cavoatrial junction or right atrium. Interval increasing volume loss and opacification in the right hemithorax probably secondary to atelectasis and changing position of a moderate right pleural effusion. EKG: Test Date: 2024-11-08 16:35:17 Measurements Intervals [place] Rate: 93 P: 38 IA: 181 QRS: 27 QRSD: 85 T: 34 QT: 349 QTc: 435 Interpretive Statements SINUS RHYTHM BASELINE ARTIFACT- I, II, III, AVR, AVL, AVF, V1-V6 NORMAL ECG Compared to ECG 04/17/2024 01:24:15 NO SIGNIFICANT CHANGE All imaging and EKGs personally reviewed and interpreted. And unless stated otherwise agree with radiologic and cardiology interpretation. Assessment and Plan Assessment and plan (1) Septic shock: Code(s): A41.9 - Sepsis, unspecified organism; R65.21 - Severe sepsis with septic shock Status: Acute (2) Pneumonia: Qualifiers: Laterality: bilateral Lung location: unspecified part of lung P neumonia type: due to unspecified organism Qualified Code(s): J18.9 - Pneumonia, unspecified organism Code(s): J18.9 - Pneumonia, unspecified organism Status: Acute (3) Hypoxic respiratory failure: Qualifiers: Chronicity: acute Qualified Code(s): J96.01 - Acute respiratory failure with hypoxia Code(s): J96.91 - Respiratory failure, unspecified with hypoxia Status: Acute (4) Seizure disorder: Code(s): G40.909 - Epilepsy, unspecified, not intractable, without status epilepticus Status: Acute (5) GERD (gastroesophageal reflux disease): Qualifiers: Esophagitis presence: esophagitis presence not specified Qualified Code(s): K21.9 - Gastro-esophageal reflux disease without esophagitis Code(s): K21.9 - Gastro-esophageal reflux disease without esophagitis Status: Acute Plan onia. Patient was given initial antibiotic therapy with Rocephin and azithromycin. Due to ICU status will add vancomycin pharmacy to dose. Blood cultures have been obtained and are pending. Will check urine Legionella antigen and pneumococcal antigen. Will wean oxygen as tolerated. Patient is requiring pressor therapy with Levophed at 12 at the time of my evaluation. He received greater than 30 mL/kilos fluid bolus and remained hypotensive. A left subclavian was placed in the ER and reportedly the procedure was challenging according to nursing report. But line is functional and is appropriately position. Will check cheetah score and continue maintenance IV fluids. Will wean Levophed for goal maps of 60-65 and systolic blood pressures greater than 90. Will resume patient's home seizure medications. Home antihypertensives are on hold. Will continue home PPI therapy. Due to the clinical picture patient's x-ray findings are most likely due to pneumonia. However underlying malignancy cannot be excluded. Patient would benefit from repeat imaging in 6-8 weeks to re-evaluate. Quality VTE Prophylaxis VTE prophylaxis: pharmacologic ordered (Lovenox 40 mg subQ daily.) Hospitalist [facility] Advance Care Plan I have confirmed that the patient's Advanced Care Plan is present, code status is documented, or surrogate decision maker is listed in patient medical record.: Yes Medication Reconciliation I have utilized all available resources to obtain, update and review the patients current medications (includes all prescriptions, OTC, herbals, cannabis, and nutritional supplements).: Yes
[2024-11-09] VITALS (20 sets, daily range): BP systolic 110–152; BP diastolic 54–89; PULSE 54–90; RESP 14–20; TEMP 35.6–36.6; O2SAT 94–100
[2024-11-09 01:52] LABS: MRSA (PCR) NOT DETECTED (NOT DETECTE)
[2024-11-09] MEDS: CENTRAL LINE FLUSH 10 ML IV PUSH ×3 (06:00→20:04)
[2024-11-09 06:46] LABS: Hemoglobin 10.4 g/dL (14.0-18.0); Mean Corpuscular HGB Conc 30.6 g/dl (32-36); Mean Corpuscular Hemoglobin 30.5 pg (26-34); Mean Corpuscular Volume 99.7 fl (80-100); Mean Platelet Volume 10.6 fl (7.4-10.4); Platelet Count Result 178 k/mm3 (150-375); Red Blood Count 3.41 M/mm3 (4.6-6.20); Red Cell Distribution Width 13.9 % (11.5-14.5); White Blood Count 19.5 K/mm3 (4.5-10.0)
[2024-11-09 06:59] LABS: Alanine Aminotransferase 27 U/L (6-50); Albumin Level 2.9 g/dL (3.5-5.1); Alkaline Phosphatase 90 U/L (38-126); Anion Gap 6 mmol/L (4-12); Aspartate Amino Transferase 23 U/L (17-59); Bilirubin,Total 0.3 mg/dL (0.2-1.3); Blood Urea Nitrogen 14 mg/dL (9-20); Calcium 7.6 mg/dL (8.4-10.2); Carbon Dioxide 26 mmol/L (22-30); Chloride 110 mmol/L (98-107); Estimated CRCL calculation 84 ml/min; Estimated Glomerular Filt Rate > 60; Glucose 89 mg/dL (65-110); Potassium 3.8 mmol/L (3.4-5.0); Sodium 142 mmol/L (137-145)
[2024-11-09 08:53] LABS: Albumin Level 2.8 g/dL (3.5-5.1); Glucose 92 mg/dL (65-110); Lactate Dehydrogenase 127 U/L (120-246); Triglycerides 63 mg/dL (<150)
--- NOTE | 2024-11-09 09:21 | WPDCNINT ---
Assessment and Plan Assessment and plan (1) Septic shock: Code(s): A41.9 - Sepsis, unspecified organism; R65.21 - Severe sepsis with septic shock Status: Acute Assessment and Plan: Patient presented with cough, shortness of breath, hypotension, pneumonia -patient was given 30 cc/kg IV fluid bolus -left IJ central line was inserted in the ER and started on norepinephrine -patient was on norepinephrine until 3:00 a.m. this morning after which was turned off as a blood pressures remained stable -patient started on ceftriaxone, azithromycin vancomycin (11/08) -11/08: Blood cultures have been obtained and pending -chest x-ray reviewed, moderate right pleural effusion, will have IR perform a thoracentesis, -orders on pleural fluid have been placed in the chart (2) Pneumonia: Qualifiers: Laterality: bilateral Lung location: unspecified part of lung Pneumonia type: due to unspecified organism Qualified Code(s): J18.9 - Pneumonia, unspecified organism Code(s): J18.9 - Pneumonia, unspecified organism Status: Acute Assessment and Plan: Pneumonia -continue antibiotics as is (3) Seizure disorder: Code(s): G40.909 - Epilepsy, unspecified, not intractable, without status epilepticus Status: Acute Assessment and Plan: Continue Keppra (4) Hypoxic respiratory failure: Qualifiers: Chronicity: acute Qualified Code(s): J96.01 - Acute respiratory failure with hypoxia Code(s): J96.91 - Respiratory failure, unspecified with hypoxia Status: Acute Assessment and Plan: Likely related to pneumonia and pleural effusion, continue treatment as above (5) GERD (gastroesophageal reflux disease): Qualifiers: Esophagitis presence: esophagitis presence not specified Qualified Code(s): K21.9 - Gastro-esophageal reflux disease without esophagitis Code(s): K21.9 - Gastro-esophageal reflux disease without esophagitis Status: Acute Assessment and Plan: Protonix Plan DVT prophylaxis: Lovenox Stress ulcer prophylaxis: Protonix Nutrition: NPO for now due to thoracentesis Code Status: Full code Critical Care Time Spent: 49 minutes Due to a high probability of clinically significant, life threatening deterioration, the patient required my highest level of preparedness to intervene emergently and I personally spent this critical care time directly and personally managing the patient. This critical care time included obtaining a history; examining the patient; pulse oximetry; ordering and review of studies; arranging urgent treatment with development of a management plan; evaluation of patient's response to treatment; frequent reassessment; and discussions with other providers. It was exclusive of separately billable procedures and treating other patients and teaching time. Please see Assessment and Plan section and the rest of the note for further information on patient assessment and treatment This dictation may have been done utilizing a voice recognition system. Attempts have been made to correct errors. However, there may be uncorrected grammatical, spelling, and recognitions errors present. Ultrasonographer Consult Note Consult date: 11/09/24 Reason for consult: Pneumonia, pleural effusion, shortness of breath, cough HPI: Reginald Haile is a 69 year old male With past medical history of GERD, traumatic brain injury, hypertension presented the ED on 11/08/2024 with complains of going for a month. He reports he is not able to walk due to generalized weakness. He has caretakers who have been having trouble taking care of him. In the ER patient was found to be in sepsis and was given 30 mL/kg IV fluid bolus. Blood tests subclavian vein essential inserted in the ER. He is admitted to ICU for septic shock due to low blood pressure despite to volume resuscitation, left subclavian central line was inserted and patient was started on norepinephrine. Patient is off norepinephrine since 3:00 a.m.. Patient was started on ceftriaxone azithromycin and vancomycin. Patient was transferred to the ICU for further with Chest CT showed multifocal consolidation likely infection origin Chest x-ray on admission showed right hilar mass or masslike consolidation with right lung volume loss, moderate right pleural effusion WBC count of 27.7 on admission, hemoglobin 12.5, platelets 230, INR 1.2, BUN 20, creatinine 1.13. Electrolytes within normal limits and so with the LFTs. Influenza, RSV and SARS-CoV-2 PCR were negative. Blood cultures have been obtained Patient seen examined this morning in the ICU, chest x-ray this morning shows opacification the right hemithorax, probably secondary to atelectasis and changing position of a moderate right pleural effusion. Patient states he feels better, denies any shortness of breath, chest pain, abdominal pain, nausea vomiting. States his cough is also better this morning. Review of Systems Review of Systems: All systems reviewed & are unremarkable except as noted in HPI and below PMFSH Past Medical History Medical History (Updated 11/09/24 @ 09:32 by Gerri Weiss DO) Seizure disorder Constipation Vitamin D deficiency Hyperlipidemia Essential hypertension History of traumatic brain injury Surgical History Surgical History (Updated 11/09/24 @ 09:21 by Gerri Weiss DO) [employer] (ventriculoperitoneal) shunt status History of cranial surgery At least 30 years ago Family History Family History Other Unknown family medical history Social History Social History Social History: Code status: Full code Smoking status: Former smoker Tobacco type: cigarettes Alcohol intake: former Substance use: unknown Do You Feel Safe in your Home?: Yes Lack of Transportation: No Lack of Food: Never True Current Housing: I Have Housing Concerned About Future Housing: No Difficulty Paying Gas/Electric Bills: No Difficulty Paying for Meds: No Currently Unemployed: No Education: Don't Know Difficulty w/ Childcare or Family Care: No Spiritual care concerns: No Meds Home Medications and Allergies Home Medications ?Medication ?Instructions ?Recorded ?Confirmed ?Type Mucinex DM 600 mg PO Q12H 04/17/24 11/08/24 History aspirin 81 mg tablet,delayed 81 mg PO DAILY 04/17/24 11/08/24 History release carvedilol 6.25 mg tablet 6.25 mg PO BID 04/17/24 11/08/24 History furosemide 20 mg tablet 20 mg PO DAILY PRN Edema 04/17/24 11/08/24 History levetiracetam 500 mg tablet 500 mg PO BID 04/17/24 11/08/24 History losartan 50 mg tablet 50 mg PO DAILY 04/17/24 11/08/24 History pantoprazole 40 mg tablet,delayed 40 mg PO DAILY 04/17/24 11/08/24 History release atorvastatin 40 mg tablet 40 mg PO QPM 11/08/24 11/08/24 History Lactobacillus acidophilus and 1 cap PO DAILY 11/09/24 11/09/24 History rhamnosus 15 billion cell capsule (Probiotic) biotin 5,000 mcg disintegrating 5,000 mcg PO DAILY 11/09/24 11/09/24 History tablet cholecalciferol (vitamin D3) 50 2,000 unit PO DAILY 11/09/24 11/09/24 History mcg (2,000 unit) capsule coenzyme Q10 100 mg capsule 100 mg PO DAILY 11/09/24 11/09/24 History (CoQ-10) docusate sodium 100 mg capsule 100 mg PO TID 11/09/24 11/09/24 History lwqtkxkujzhy-qsqxnkdn-nzhctb 1 tablet PO DAILY 11/09/24 11/09/24 History tablet (Multivitamin 50 Plus tablet) zinc 50 mg tablet 50 mg PO DAILY 11/09/24 11/09/24 History Allergies Allergy/AdvReac Type Severity Reaction Status Date / Time No Known Allergies Allergy Verified 11/08/24 13:16 Vital Signs Vital Signs - 24 hr 11/08/24 13:12 11/08/24 15:59 11/08/24 16:45 Temperature 98.3 F 100.3 F H Pulse Rate 98 106 H Respiratory Rate 15 18 Blood Pressure 108/60 78/48 L Pulse Oximetry 96 87 L 89 L Oxygen Delivery Room Air Room Air Oxygen Flow Rate 11/08/24 16:47 11/08/24 18:26 11/08/24 18:36 Temperature 100.0 F H Pulse Rate 79 Respiratory Rate 27 H Blood Pressure 86/49 L Pulse Oximetry 94 96 Oxygen Delivery Nasal Cannula Oxygen Flow Rate 2 11/08/24 19:26 11/08/24 20:48 11/08/24 21:17 Temperature 98 F Pulse Rate 86 86 57 L Respiratory Rate 22 H 16 Blood Pressure 96/60 L 77/41 L 79/44 L Pulse Oximetry 98 96 Oxygen Delivery Oxygen Flow Rate 11/08/24 21:23 11/08/24 21:29 11/08/24 21:54 Temperature Pulse Rate 59 L 59 L 57 L Respiratory Rate 16 Blood Pressure 78/41 L 94/68 L 100/48 L Pulse Oximetry 99 Oxygen Delivery Oxygen Flow Rate 11/08/24 22:10 11/08/24 23:00 11/08/24 23:16 Temperature Pulse Rate 56 L 56 L 100 Respiratory Rate 18 23 H Blood Pressure 108/47 L 106/52 L Pulse Oximetry 98 98 Oxygen Delivery Oxygen Flow Rate 11/08/24 23:16 11/08/24 23:18 11/08/24 23:32 Temperature 97.8 F 97.7 F Pulse Rate 56 L 100 Respiratory Rate 20 21 H Blood Pressure 141/74 H Pulse Oximetry 97 93 Oxygen Delivery Oxygen Flow Rate 11/08/24 23:32 11/09/24 00:00 11/09/24 00:00 Temperature Pulse Rate 56 L 69 Respiratory Rate Blood Pressure 127/55 L 115/69 Pulse Oximetry 99 Oxygen Delivery Nasal Cannula Oxygen Flow Rate 2 11/09/24 00:00 11/09/24 00:00 11/09/24 00:32 Temperature 97.8 F Pulse Rate 84 84 89 Respiratory Rate 20 Blood Pressure 115/69 129/62 Pulse Oximetry 99 Oxygen Delivery Oxygen Flow Rate 11/09/24 00:58 11/09/24 01:16 11/09/24 01:59 Temperature Pulse Rate 90 89 87 Respiratory Rate Blood Pressure 130/65 130/71 127/67 Pulse Oximetry Oxygen Delivery Oxygen Flow Rate 11/09/24 02:00 11/09/24 02:00 11/09/24 02:39 Temperature Pulse Rate 87 87 74 Respiratory Rate 14 Blood Pressure 119/72 128/71 Pulse Oximetry 97 Oxygen Delivery Oxygen Flow Rate 11/09/24 03:14 11/09/24 04:00 11/09/24 04:00 Temperature Pulse Rate 54 L 60 Respiratory Rate Blood Pressure 113/59 L Pulse Oximetry 100 Oxygen Delivery Nasal Cannula Oxygen Flow Rate 2 11/09/24 04:00 11/09/24 04:00 11/09/24 06:00 Temperature 96.0 F L Pulse Rate 60 60 59 L Respiratory Rate 20 Blood Pressure 125/64 125/64 110/54 L Pulse Oximetry 100 Oxygen Delivery Oxygen Flow Rate 11/09/24 06:00 11/09/24 06:00 11/09/24 08:00 Temperature 97.4 F L Pulse Rate 55 L 55 L Respiratory Rate 15 Blood Pressure 110/54 L Pulse Oximetry 99 100 Oxygen Delivery Nasal Cannula Oxygen Flow Rate 2 Exam Narrative: General: Pleasant gentleman in no acute distress HEENT:? Pupils equal and reactive, sclera is clear Neck:? Supple Respiratory:? Decreased breath sounds on right side, adequate air entry on left, no wheezing or rales Cardiac:? S1-S2 is normal, Regular rate and rhythm Abdomen:? Soft, nontender, nondistended, normoactive bowel sounds Extremities:? No edema, palpable pedal pulse Neuro:? Patient is awake, alert, follows simple commands in all extremities and answers questions appropriately Skin:? No lesions noted Psych:? Normal mentation and affect Results Labs 11/09/24 06:41 11/09/24 06:41 Labs: Short CBC 11/08/24 11/09/24 Range/Units 16:53 06:41 WBC 27.7 H 19.5 H (4.5-10.0) K/mm3 Hgb 12.5 L 10.4 L (14.0-18.0) g/dL Hct 39.6 L 34.0 L (42.0-52.0) % Plt Count 230 178 (150-375) k/mm3 BMP 11/08/24 11/09/24 11/09/24 16:53 06:38 06:41 Sodium 139 142 Potassium 4.1 3.8 Chloride 103 110 H Carbon Dioxide 25 26 BUN 20 14 D Creatinine 1.13 0.72 Glucose 124 H 92 89 Calcium 8.5 7.6 L Liver Function 11/08/24 11/09/24 11/09/24 Range/Units 16:53 06:38 06:41 Total Bilirubin 0.9 0.3 (0.2-1.3) mg/dL AST 37 23 (17-59) U/L ALT 36 27 (6-50) U/L Alkaline Phosphatase 106 90 (38-126) U/L Albumin 4.0 2.8 L 2.9 L (3.5-5.1) g/dL Urine 11/08/24 Range/Units 17:05 Urine Color Dark yellow (Yellow) Urine Appearance Clear (Clear) Urine pH 5.0 (5.0-9.0) Ur Specific [place] 1.027 (1.001-1.035) Urine Protein 1+ H (Negative) mg/dL Urine Glucose (UA) Negative (Negative) mg/dL Quality VTE Prophylaxis VTE prophylaxis: pharmacologic ordered Hospitalist MIPS Advance Care Plan I have confirmed that the patient's Advanced Care Plan is present, code status is documented, or surrogate decision maker is listed in patient medical record.: Yes Medication Reconciliation I have utilized all available resources to obtain, update and review the patients current medications (includes all prescriptions, OTC, herbals, cannabis, and nutritional supplements).: Yes
[2024-11-09] MEDS: DOCUSATE SODIUM 100 MG CAPSULE PO ×2 (10:52→17:27)
[2024-11-09] MEDS: levETIRAcetam 500 MG TABLET PO ×2 (10:52→17:27)
[2024-11-09] MEDS: ASPIRIN 81 MG ENTERIC TABLET PO (10:52)
[2024-11-09] MEDS: PANTOPRAZOLE 40 MG TABLET PO (10:53)
[2024-11-09] MEDS: guaiFENesin 600 MG/DEXTROMETHORPHAN 30 MG SR TAB 12 HR 1 TAB PO ×2 (10:53→20:03)
[2024-11-09] MEDS: cefTRIAXone 2 GM/NS 100 ML 2 GM/100 ML BAG IVPB (10:53)
[2024-11-09] MEDS: ENOXAPARIN 40 MG/0.4 ML SYRINGE SUB-Q (11:05)
[2024-11-09 13:50] LABS: Appearance Pleural Fluid Turbid (Clear); Color Pleural Fluid Yellow (Colorless); Lymphocytes Pleural Fluid 8 %; Macrophages Pleural Fluid 22 %; Mesothelial Cells Pleural Flui 13 %; Neutrophils Pleural Fluid 57 % (0-25); Pleural fluid source Pleural fluid; RBC Pleural Fluid 3000 /uL (0-10000)
[2024-11-09 14:49] LABS: Nucleated Cell Pleural Fluid 37790 /uL (0-1000)
--- NOTE | 2024-11-09 16:50 | PM.IMPN ---
Progress Note: A&P Assessment and Plan (1) Septic shock: Code(s): A41.9 - Sepsis, unspecified organism; R65.21 - Severe sepsis with septic shock Status: Acute Assessment and Plan: Patient presented with cough, shortness of breath, hypotension, pneumonia s/p pressors and IVF Cultures still negative Continue On Rocephin, Azithromycin and Vanc -chest x-ray showed right persistent patchy airspace opacities in the right mid and lower lung zone. -pleural fluid nuclear cell [id number] with 57% neutrophils f/u with cultures (2) Pneumonia: Qualifiers: Laterality: bilateral Lung location: unspecified part of lung Pneumonia type: due to unspecified organism Qualified Code(s): J18.9 - Pneumonia, unspecified organism Code(s): J18.9 - Pneumonia, unspecified organism Status: Acute Assessment and Plan: Pneumonia -continue antibiotics as is (3) Seizure disorder: Code(s): G40.909 - Epilepsy, unspecified, not intractable, without status epilepticus Status: Acute Assessment and Plan: Continue Keppra (4) Hypoxic respiratory failure: Qualifiers: Chronicity: acute Qualified Code(s): J96.01 - Acute respiratory failure with hypoxia Code(s): J96.91 - Respiratory failure, unspecified with hypoxia Status: Acute Assessment and Plan: Likely related to pneumonia and pleural effusion, continue treatment as above (5) GERD (gastroesophageal reflux disease): Qualifiers: Esophagitis presence: esophagitis presence not specified Qualified Code(s): K21.9 - Gastro-esophageal reflux disease without esophagitis Code(s): K21.9 - Gastro-esophageal reflux disease without esophagitis Status: Acute Assessment and Plan: Protonix Plan DVT prophylaxis: Lovenox Stress ulcer prophylaxis: Protonix Nutrition: NPO for now due to thoracentesis Code Status: Full code Subjective Date/time seen: 11/09/24 16:50 Interval history: Comfortable at bedside and off Pressors Review of Systems Review of Systems: Unobtainable due to the 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 Pupils equal and reactive, sclera is clear Neck:? Supple Respiratory:? Decreased breath sounds on right side, adequate air entry on left, no wheezing or rales Cardiac:? S1-S2 is normal, Regular rate and rhythm Abdomen:? Soft, nontender, nondistended, normoactive bowel sounds Extremities:? No edema, palpable pedal pulse Neuro:? Patient is awake, alert, follows simple commands in all extremities and answers questions appropriately Skin:? No lesions noted Psych:? Normal mentation and affect Const: Other: Acutely ill-appearing, appears older than stated age HENMT: Other: Irregularities to the left side of the skull and high consistent with prior trauma, mucous membranes are dry, edentulous in upper and lower jaw Eyes: Other: Posttraumatic changes the eye, although pupils do seem relatively equal the patient's left eye seems to be somewhat roving Neck: Other: Trachea is midline no gross thyromegaly Resp: Other: Decreased breath sounds bilateral bases right greater than left, no wheezing, no rhonchi Cardio: Other: Regular rate, regular rhythm, no murmurs GI: Other: Soft, distended, nontender, positive bowel sounds Skin: Other: Hot to touch, non jaundice, diaphoretic, mottling of the lower extremities, 2nd cap refill Neuro: Other: Patient is easy to arouse with verbal stimuli and follows some commands, has non chronic in movements of the eyes, pupils appear equal although, lid lag of the left eye, difficult to assess facial symmetry, no tongue deviation, peripheral sensations appear to be grossly intact Extrem: Other: No clubbing, cyanosis or edema moves all extremities equally Psych: Other: Flat affect, cooperative, poor judgment and insight Objective Data Vital Signs Vital Signs: Vital Signs - 24 hr 11/08/24 18:26 11/08/24 18:36 11/08/24 19:26 Temperature 100.0 F H Pulse Rate 79 86 Respiratory Rate 27 H 22 H Blood Pressure 86/49 L 96/60 L Pulse Oximetry 96 98 Oxygen Delivery Oxygen Flow Rate 11/08/24 20:48 11/08/24 21:17 11/08/24 21:23 Temperature 98 F Pulse Rate 86 57 L 59 L Respiratory Rate 16 16 Blood Pressure 77/41 L 79/44 L 78/41 L Pulse Oximetry 96 99 Oxygen Delivery Oxygen Flow Rate 11/08/24 21:29 11/08/24 21:54 11/08/24 22:10 Temperature Pulse Rate 59 L 57 L 56 L Respiratory Rate Blood Pressure 94/68 L 100/48 L 108/47 L Pulse Oximetry 98 Oxygen Delivery Oxygen Flow Rate 11/08/24 23:00 11/08/24 23:16 11/08/24 23:16 Temperature 97.8 F Pulse Rate 56 L 100 56 L Respiratory Rate 18 23 H 20 Blood Pressure 106/52 L 141/74 H Pulse Oximetry 98 97 Oxygen Delivery Oxygen Flow Rate 11/08/24 23:18 11/08/24 23:32 11/08/24 23:32 Temperature 97.7 F Pulse Rate 100 56 L Respiratory Rate 21 H Blood Pressure 127/55 L Pulse Oximetry 93 Oxygen Delivery Oxygen Flow Rate 11/09/24 00:00 11/09/24 00:00 11/09/24 00:00 Temperature Pulse Rate 69 84 Respiratory Rate Blood Pressure 115/69 Pulse Oximetry 99 Oxygen Delivery Nasal Cannula Oxygen Flow Rate 2 11/09/24 00:00 11/09/24 00:32 11/09/24 00:58 Temperature 97.8 F Pulse Rate 84 89 90 Respiratory Rate 20 Blood Pressure 115/69 129/62 130/65 Pulse Oximetry 99 Oxygen Delivery Oxygen Flow Rate 11/09/24 01:16 11/09/24 01:59 11/09/24 02:00 Temperature Pulse Rate 89 87 87 Respiratory Rate Blood Pressure 130/71 127/67 Pulse Oximetry Oxygen Delivery Oxygen Flow Rate 11/09/24 02:00 11/09/24 02:39 11/09/24 03:14 Temperature Pulse Rate 87 74 54 L Respiratory Rate 14 Blood Pressure 119/72 128/71 113/59 L Pulse Oximetry 97 Oxygen Delivery Oxygen Flow Rate 11/09/24 04:00 11/09/24 04:00 11/09/24 04:00 Temperature 96.0 F L Pulse Rate 60 60 Respiratory Rate 20 Blood Pressure 125/64 Pulse Oximetry 100 100 Oxygen Delivery Nasal Cannula Oxygen Flow Rate 2 11/09/24 04:00 11/09/24 06:00 11/09/24 06:00 Temperature Pulse Rate 60 59 L 55 L Respiratory Rate Blood Pressure 125/64 110/54 L Pulse Oximetry Oxygen Delivery Oxygen Flow Rate 11/09/24 06:00 11/09/24 08:00 11/09/24 08:00 Temperature 97.4 F L Pulse Rate 55 L 77 Respiratory Rate 15 Blood Pressure 110/54 L Pulse Oximetry 99 100 Oxygen Delivery Nasal Cannula Oxygen Flow Rate 2 11/09/24 09:00 11/09/24 10:00 11/09/24 10:00 Temperature Pulse Rate 65 Respiratory Rate Blood Pressure Pulse Oximetry 97 94 Oxygen Delivery Nasal Cannula Room Air Oxygen Flow Rate 1 11/09/24 11:50 11/09/24 12:00 11/09/24 12:00 Temperature Pulse Rate 70 73 Respiratory Rate Blood Pressure 126/60 Pulse Oximetry 94 96 Oxygen Delivery Room Air Oxygen Flow Rate 11/09/24 14:00 11/09/24 16:00 11/09/24 16:00 Temperature Pulse Rate 76 62 Respiratory Rate Blood Pressure Pulse Oximetry 98 Oxygen Delivery Room Air Oxygen Flow Rate Intake/Output Intake/Output: Intake & Output 11/06/24 11/07/24 11/08/24 11/09/24 23:59 23:59 23:59 23:59 Intake Total 3649.5 1222.1 Output Total 50 550 Balance 3599.5 672.1 Meds/Results Medications: Active Medications Generic Name Dose Route Start Last Admin Trade Name Freq PRN Reason Stop Dose Admin Acetaminophen 650 mg 11/08/24 22:06 Acetaminophen 325 Mg Tablet PO Q4H PRN Mild Pain (1-3) or Fever Aspirin 81 mg 11/09/24 09:00 11/09/24 10:52 Aspirin 81 Mg Enteric Tablet PO 81 mg DAILY RICK Administration Docusate Sodium 100 mg 11/09/24 09:00 11/09/24 11:07 Docusate Sodium 100 Mg Capsule PO Not Given TID RICK Enoxaparin Sodium 40 mg 11/10/24 09:00 Enoxaparin 40 Mg/0.4 Ml Syringe SUB-Q DAILY RICK Guaifenesin/Dextromethorphan 1 tab 11/09/24 09:00 11/09/24 10:53 Guaifenesin 600 Mg/Dextromethorphan 30 Mg Sr Tab 12 Hr PO 1 tab Q12HR RICK Administration Ceftriaxone Sodium 2 gm in 100 mls @ 200 mls/hr 11/09/24 10:00 11/09/24 10:53 Rocephin 2 Gm/Ns 100 Ml IVPB 200 mls/hr Q24H RICK Administration Azithromycin 500 mg in 250 mls @ 250 mls/hr 11/09/24 18:00 Zithromax IVPB Q24H RICK Levetiracetam 500 mg 11/09/24 09:00 11/09/24 10:52 Levetiracetam 500 Mg Tablet PO 500 mg BID RICK Administration Pantoprazole Sodium 40 mg 11/09/24 09:00 11/09/24 10:53 Pantoprazole 40 Mg Tablet PO 40 mg DAILY RICK Administration Sodium Chloride 10 ml 11/08/24 22:00 11/09/24 06:00 Central Line Flush IV PUSH 10 ml Q8HR RICK Administration Sodium Chloride 20 ml 11/08/24 21:07 Central Line Flush IV PUSH PRN PRN after blood draws Sodium Chloride 6 ml 11/10/24 05:00 Sodium Chlor 3% 15 Ml Neb (Respiratory Therapy) INHALATION 11/12/24 05:01 DAILY@0500 [facility] Radiology Results: ITS Impressions Chest CT 11/08/24 17:53 IMPRESSION: Multifocal consolidation, likely infectious in origin, for which follow-up to resolution is recommended as a malignancy may have a similar appearance. Thoracentesis Ultrasound 11/09/24 12:10 IMPRESSION: 1. Successful ultrasound-guided thoracentesis yielding 200 mL of yellow fluid. Chest X-Ray 11/09/24 12:16 IMPRESSION: 1. No residual pleural effusion and no pneumothorax post right thoracentesis. 2. Unchanged elevation the right hemidiaphragm with persistent patchy airspace opacities in the right mid and lower lung zone which could represent atelectasis and/or pneumonia. Labs Labs: Laboratory Results - last 24 hr 11/08/24 11/08/24 11/08/24 16:53 17:05 20:30 WBC 27.7 H RBC 4.12 L Hgb 12.5 L Hct 39.6 L MCV 96.1 MCH 30.3 MCHC 31.6 L RDW 13.7 Plt Count 230 MPV 11.2 H Immature Gran % (Auto) Not Reportable Neut % (Auto) Not Reportable Lymph % (Auto) Not Reportable [place] % (Auto) Not Reportable Eos % (Auto) Not Reportable Baso % (Auto) Not Reportable Lymph # (Auto) Not Reportable [place] # (Auto) Not Reportable Eos # (Auto) Not Reportable Baso # (Auto) Not Reportable Abs Immat Gran (auto) Not Reportable Absolute Neuts (auto) Not Reportable Absolute Nucleated RBC Not Reportable Total Counted 100 Neutrophils % (Manual) 75 H Band Neutrophils % 4 Lymphocytes % (Manual) 15.0 L Monocytes % (Manual) 6 Nucleated RBC % Not Reportable Abs Neuts (Manual) 21.88 H Abs Lymphs (Manual) 4.15 Abs Monocytes (Manual) 1.66 H Platelet Estimate Adequate Hypochromasia 1+ Schistocytes None seen PT 15.8 H INR 1.2 APTT 37.6 H Sodium 139 Potassium 4.1 Chloride 103 Carbon Dioxide 25 Anion Gap 11 BUN 20 Creatinine 1.13 Estim Creat Clear Calc 55 Estimated GFR > 60 Glucose 124 H POC Capillary Glucose 126 H Lactic Acid 1.0 Calcium 8.5 Total Bilirubin 0.9 AST 37 ALT 36 Alkaline Phosphatase 106 Lactate Dehydrogenase Total Protein 7.0 Albumin 4.0 Triglycerides Procalcitonin Urine Color Dark yellow Urine Appearance Clear Urine pH 5.0 Ur Specific [place] 1.027 Urine Protein 1+ H Urine Glucose (UA) Negative Urine Ketones 1+ H Ur Blood (Man) Negative Urine Nitrate Negative Urine Bilirubin 1+ H Urine Urobilinogen 1.0 Leukocyte Esterase Rfl Trace H Urine RBC 6-10 H Urine WBC 0-5 Ur Squamous Epith Cells Few Urine Bacteria None seen Urine Casts 11-20 Hyaline Casts Present Pleural Fluid Source Pleural Color Pleural Appearance Pleural pH Pleural RBC Pleural Nuc Cells Pleural Neutrophils Pleural Lymphocytes Pleural Macrophages Pleural Mesothelial Nasal MRSA (PCR) Influenza A (RT-PCR) Negative Influenza B (RT-PCR) Negative RSV (RT-PCR) Negative SARS-CoV-2 RNA (RT-PCR) Negative 11/08/24 11/09/24 11/09/24 21:04 00:31 06:38 WBC RBC Hgb Hct MCV MCH MCHC RDW Plt Count MPV Immature Gran % (Auto) Neut % (Auto) Lymph % (Auto) [place] % (Auto) Eos % (Auto) Baso % (Auto) Lymph # (Auto) [place] # (Auto) Eos # (Auto) Baso # (Auto) Abs Immat Gran (auto) Absolute Neuts (auto) Absolute Nucleated RBC Total Counted Neutrophils % (Manual) Band Neutrophils % Lymphocytes % (Manual) Monocytes % (Manual) Nucleated RBC % Abs Neuts (Manual) Abs Lymphs (Manual) Abs Monocytes (Manual) Platelet Estimate Hypochromasia Schistocytes PT INR APTT Sodium Potassium Chloride Carbon Dioxide Anion Gap BUN Creatinine Estim Creat Clear Calc Estimated GFR Glucose 92 POC Capillary Glucose Lactic Acid Calcium Total Bilirubin AST ALT Alkaline Phosphatase Lactate Dehydrogenase 127 Total Protein 6.0 L Albumin 2.8 L Triglycerides 63 Procalcitonin 0.3 Urine Color Urine Appearance Urine pH Ur Specific [place] Urine Protein Urine Glucose (UA) Urine Ketones Ur Blood (Man) Urine Nitrate Urine Bilirubin Urine Urobilinogen Leukocyte Esterase Rfl Urine RBC Urine WBC Ur Squamous Epith Cells Urine Bacteria Urine Casts Hyaline Casts Pleural Fluid Source Pleural Color Pleural Appearance Pleural pH Pleural RBC Pleural Nuc Cells Pleural Neutrophils Pleural Lymphocytes Pleural Macrophages Pleural Mesothelial Nasal MRSA (PCR) Not detected Influenza A (RT-PCR) Influenza B (RT-PCR) RSV (RT-PCR) SARS-CoV-2 RNA (RT-PCR) 11/09/24 11/09/24 06:41 11:30 WBC 19.5 H RBC 3.41 L Hgb 10.4 L Hct 34.0 L MCV 99.7 MCH 30.5 MCHC 30.6 L RDW 13.9 Plt Count 178 MPV 10.6 H Immature Gran % (Auto) Neut % (Auto) Lymph % (Auto) [place] % (Auto) Eos % (Auto) Baso % (Auto) Lymph # (Auto) [place] # (Auto) Eos # (Auto) Baso # (Auto) Abs Immat Gran (auto) Absolute Neuts (auto) Absolute Nucleated RBC Total Counted Neutrophils % (Manual) Band Neutrophils % Lymphocytes % (Manual) Monocytes % (Manual) Nucleated RBC % Abs Neuts (Manual) Abs Lymphs (Manual) Abs Monocytes (Manual) Platelet Estimate Hypochromasia Schistocytes PT INR APTT Sodium 142 Potassium 3.8 Chloride 110 H Carbon Dioxide 26 Anion Gap 6 BUN 14 D Creatinine 0.72 Estim Creat Clear Calc 84 Estimated GFR > 60 Glucose 89 POC Capillary Glucose Lactic Acid Calcium 7.6 L Total Bilirubin 0.3 AST 23 ALT 27 Alkaline Phosphatase 90 Lactate Dehydrogenase Total Protein 6.0 L Albumin 2.9 L Triglycerides Procalcitonin Urine Color Urine Appearance Urine pH Ur Specific [place] Urine Protein Urine Glucose (UA) Urine Ketones Ur Blood (Man) Urine Nitrate Urine Bilirubin Urine Urobilinogen Leukocyte Esterase Rfl Urine RBC Urine WBC Ur Squamous Epith Cells Urine Bacteria Urine Casts Hyaline Casts Pleural Fluid Source Pleural fluid Pleural Color Yellow Pleural Appearance Turbid Pleural pH 7.360 Pleural RBC 3000 Pleural Nuc Cells 43150 H Pleural Neutrophils 57 H Pleural Lymphocytes 8 Pleural Macrophages 22 Pleural Mesothelial 13 Nasal MRSA (PCR) Influenza A (RT-PCR) Influenza B (RT-PCR) RSV (RT-PCR) SARS-CoV-2 RNA (RT-PCR) Quality VTE Prophylaxis VTE prophylaxis: pharmacologic ordered
[2024-11-09] MEDS: AZITHROMYCIN 500 MG/NS 250 ML 500 MG/250 ML BAG 250 MG IVPB (17:27)
[2024-11-09] MEDS: ACETAMINOPHEN 325 MG TABLET 650 MG PO (20:03)
[2024-11-10] VITALS (22 sets, daily range): BP systolic 131–167; BP diastolic 58–82; PULSE 57–89; RESP 17–24; TEMP 36.4–36.9; O2SAT 91–99
[2024-11-10] MEDS: SODIUM CHLOR 3% 15 ML NEB (RESPIRATORY THERAPY) 6 ML INHALATION (04:51)
[2024-11-10] MEDS: ALBUTEROL SULFATE NEB 2.5 MG/3 ML INH INHALATION (05:05)
[2024-11-10] MEDS: CENTRAL LINE FLUSH 10 ML IV PUSH (06:01)
[2024-11-10 06:17] LABS: Basophils Absolute Auto 0.1 K/mm3 (0.0-0.1); Basophils Percent Auto 0.4 % (0.2-1.2); Eosinophils Absolute Auto 0.2 K/mm3 (0-0.3); Eosinophils Percent Auto 1.3 % (0-4.4); Hematocrit 35.3 % (42.0-52.0); Hemoglobin 11.2 g/dL (14.0-18.0); Immature Granulocyte Percent A 0.8 % (0-0.5); Lymphocytes Absolute Auto 1.71 K/mm3 (0.9-3.2); Lymphocytes Percent Auto 14.2 % (18.3-44.2); Mean Corpuscular HGB Conc 31.7 g/dl (32-36); Mean Corpuscular Hemoglobin 30.3 pg (26-34); Mean Corpuscular Volume 95.4 fl (80-100); Mean Platelet Volume 10.9 fl (7.4-10.4); Monocytes Absolute Auto 0.8 K/mm3 (0.1-0.6); Monocytes Percent Auto 6.5 % (2.6-8.5); Neutrophils Absolute Auto 9.3 K/mm3 (1.3-6.7); Neutrophils Percent Auto 76.8 % (45.5-73.1); Platelet Count Result 196 k/mm3 (150-375); Red Cell Distribution Width 13.7 % (11.5-14.5); White Blood Count 12.1 K/mm3 (4.5-10.0)
[2024-11-10 06:30] LABS: Alanine Aminotransferase 27 U/L (6-50); Alkaline Phosphatase 109 U/L (38-126); Anion Gap 3 mmol/L (4-12); Aspartate Amino Transferase 24 U/L (17-59); Bilirubin,Total 0.3 mg/dL (0.2-1.3); Blood Urea Nitrogen 10 mg/dL (9-20); Calcium 8.1 mg/dL (8.4-10.2); Carbon Dioxide 30 mmol/L (22-30); Chloride 109 mmol/L (98-107); Estimated CRCL calculation 84 ml/min; Estimated Glomerular Filt Rate > 60; Glucose 91 mg/dL (65-110); Magnesium 1.9 mg/dL (1.6-2.3); Phosphorus 2.8 mg/dL (2.5-4.5); Potassium 3.7 mmol/L (3.4-5.0); Sodium 142 mmol/L (137-145)
--- NOTE | 2024-11-10 06:30 | PC.NURSE ---
This patient, Reginald Haile, was transferred to [ 204] on 11/10/24 at 0643. Personal belongings sent with patient. Report given to [Paty JACKSON ]. Appropriate documentation sent with patient.
--- NOTE | 2024-11-10 06:30 | PC.NURSE ---
Call placed to KARIE Jay, at this time r/t patient's transfer to room 204. Misty verbalized understanding and thanked this nurse for the care of patient.
[2024-11-10] MEDS: ASPIRIN 81 MG ENTERIC TABLET PO (08:57)
[2024-11-10] MEDS: levETIRAcetam 500 MG TABLET PO ×2 (08:57→18:05)
[2024-11-10] MEDS: guaiFENesin 600 MG/DEXTROMETHORPHAN 30 MG SR TAB 12 HR 1 TAB PO ×2 (08:57→20:47)
[2024-11-10] MEDS: ENOXAPARIN 40 MG/0.4 ML SYRINGE SUB-Q (08:57)
[2024-11-10] MEDS: DOCUSATE SODIUM 100 MG CAPSULE PO ×2 (08:57→18:05)
[2024-11-10] MEDS: PANTOPRAZOLE 40 MG TABLET PO (08:57)
[2024-11-10] MEDS: cefTRIAXone 2 GM/NS 100 ML 2 GM/100 ML BAG IVPB (09:14)
[2024-11-10] MEDS: IPRATROPIUM 0.5 MG/ALBUTEROL SULFATE 2.5 MG AMPUL.NEB 3 ML INHALATION ×3 (10:15→20:34)
--- NOTE | 2024-11-10 13:36 | PM.IMPN ---
Progress Note: A&P Assessment and Plan (1) Septic shock: Code(s): A41.9 - Sepsis, unspecified organism; R65.21 - Severe sepsis with septic shock Status: Acute (2) Pneumonia: Qualifiers: Laterality: bilateral Lung location: unspecified part of lung Pneumonia type: due to unspecified organism Qualified Code(s): J18.9 - Pneumonia, unspecified organism Code(s): J18.9 - Pneumonia, unspecified organism Status: Acute (3) Hypoxic respiratory failure: Qualifiers: Chronicity: acute Qualified Code(s): J96.01 - Acute respiratory failure with hypoxia Code(s): J96.91 - Respiratory failure, unspecified with hypoxia Status: Acute (4) Seizure disorder: Code(s): G40.909 - Epilepsy, unspecified, not intractable, without status epilepticus Status: Acute (5) GERD (gastroesophageal reflux disease): Qualifiers: Esophagitis presence: esophagitis presence not specified Qualified Code(s): K21.9 - Gastro-esophageal reflux disease without esophagitis Code(s): K21.9 - Gastro-esophageal reflux disease without esophagitis Status: Acute Plan Septic Shock S/p Pressors and IVF Continue Rocephin and Azithromycin F/u cultures Pneumonia CT chest showed multifocal pneumonia Fluid culture negative so far, blood culture negative Continue Abx as above Acute hypoxemic respiratory failure on 2 liters oxygen not on oxygen at home titrate and monitor Seizure disorder continue Keppra GERD Continue Protonix DVT prophylaxis on Sq Lovenox Subjective Date/time seen: 11/10/24 13:36 Interval history: Comfortable at bedside still on 2 liters oxygen and denies any home oxygen use Review of Systems Review of Systems: Unobtainable due to the 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 Pupils equal and reactive, sclera is clear Neck:? Supple Respiratory:? Decreased breath sounds on right side, adequate air entry on left, no wheezing or rales Cardiac:? S1-S2 is normal, Regular rate and rhythm Abdomen:? Soft, nontender, nondistended, normoactive bowel sounds Extremities:? No edema, palpable pedal pulse Neuro:? Patient is awake, alert, follows simple commands in all extremities and answers questions appropriately Skin:? No lesions noted Psych:? Normal mentation and affect Const: Other: Acutely ill-appearing, appears older than stated age HENMT: Other: Irregularities to the left side of the skull and high consistent with prior trauma, mucous membranes are dry, edentulous in upper and lower jaw Eyes: Other: Posttraumatic changes the eye, although pupils do seem relatively equal the patient's left eye seems to be somewhat roving Neck: Other: Trachea is midline no gross thyromegaly Resp: Other: Decreased breath sounds bilateral bases right greater than left, no wheezing, no rhonchi Cardio: Other: Regular rate, regular rhythm, no murmurs GI: Other: Soft, distended, nontender, positive bowel sounds Skin: Other: Hot to touch, non jaundice, diaphoretic, mottling of the lower extremities, 2nd cap refill Neuro: Other: Patient is easy to arouse with verbal stimuli and follows some commands, has non chronic in movements of the eyes, pupils appear equal although, lid lag of the left eye, difficult to assess facial symmetry, no tongue deviation, peripheral sensations appear to be grossly intact Extrem: Other: No clubbing, cyanosis or edema moves all extremities equally Psych: Other: Flat affect, cooperative, poor judgment and insight Objective Data Vital Signs Vital Signs: Vital Signs - 24 hr 11/09/24 14:00 11/09/24 16:00 11/09/24 16:00 Temperature Pulse Rate 76 62 Respiratory Rate Blood Pressure Pulse Oximetry 98 Oxygen Delivery Room Air Oxygen Flow Rate 11/09/24 18:00 11/09/24 20:00 11/09/24 20:00 Temperature 97.9 F Pulse Rate 85 75 Respiratory Rate 17 Blood Pressure 152/89 H Pulse Oximetry 97 97 Oxygen Delivery Room Air Oxygen Flow Rate 11/09/24 20:00 11/09/24 22:00 11/10/24 00:00 Temperature Pulse Rate 74 61 Respiratory Rate Blood Pressure Pulse Oximetry 98 Oxygen Delivery Nasal Cannula Oxygen Flow Rate 1 11/10/24 00:00 11/10/24 00:00 11/10/24 02:00 Temperature 98.1 F Pulse Rate 58 L 58 L 57 L Respiratory Rate 17 Blood Pressure 131/63 Pulse Oximetry 98 Oxygen Delivery Oxygen Flow Rate 11/10/24 04:00 11/10/24 04:00 11/10/24 04:00 Temperature 97.7 F Pulse Rate 63 62 Respiratory Rate 19 Blood Pressure 145/71 H Pulse Oximetry 97 97 Oxygen Delivery Nasal Cannula Oxygen Flow Rate 1 11/10/24 04:51 11/10/24 04:51 11/10/24 05:05 Temperature Pulse Rate 72 72 78 Respiratory Rate 23 H 23 H 24 H Blood Pressure Pulse Oximetry 98 Oxygen Delivery Nasal Cannula Oxygen Flow Rate 2 11/10/24 05:15 11/10/24 06:00 11/10/24 07:00 Temperature Pulse Rate 78 63 88 Respiratory Rate 24 H Blood Pressure Pulse Oximetry Oxygen Delivery Oxygen Flow Rate 11/10/24 08:00 11/10/24 08:00 11/10/24 10:15 Temperature 97.5 F L Pulse Rate 66 Respiratory Rate 20 Blood Pressure 161/82 H Pulse Oximetry 99 99 97 Oxygen Delivery Nasal Cannula Nasal Cannula Oxygen Flow Rate 2 2 11/10/24 10:15 11/10/24 10:28 11/10/24 12:00 Temperature Pulse Rate 79 86 86 Respiratory Rate 24 H 24 H Blood Pressure Pulse Oximetry Oxygen Delivery Oxygen Flow Rate 11/10/24 12:07 11/10/24 13:10 11/10/24 13:17 Temperature 98.4 F Pulse Rate 72 89 80 Respiratory Rate 24 H 24 H 24 H Blood Pressure 155/67 H Pulse Oximetry 98 Oxygen Delivery Oxygen Flow Rate Intake/Output Intake/Output: Intake & Output 11/07/24 11/08/24 11/09/24 11/10/24 23:59 23:59 23:59 23:59 Intake Total 3649.5 1442.1 180 Output Total 50 900 300 Balance 3599.5 542.1 -120 Meds/Results Medications: Active Medications Generic Name Dose Route Start Last Admin Trade Name Freq PRN Reason Stop Dose Admin Acetaminophen 650 mg 11/08/24 22:06 11/09/24 20:03 Acetaminophen 325 Mg Tablet PO 650 mg Q4H PRN Administration Mild Pain (1-3) or Fever Albuterol 2.5 mg 11/10/24 05:18 11/10/24 05:05 Albuterol Sulfate Neb 2.5 Mg/3 Ml Inh INHALATION 2.5 mg Q6HRT PRN Administration Shortness Of Breath Or Wheezing Albuterol/Ipratropium 3 ml 11/10/24 09:45 11/10/24 13:09 Ipratropium 0.5 Mg/Albuterol Sulfate 2.5 Mg Ampul.Neb 3 Ml INHALATION 3 ml Q6HRT RICK Administration Aspirin 81 mg 11/09/24 09:00 11/10/24 08:57 Aspirin 81 Mg Enteric Tablet PO 81 mg DAILY RICK Administration Docusate Sodium 100 mg 11/09/24 09:00 11/10/24 13:21 Docusate Sodium 100 Mg Capsule PO Not Given TID RICK Enoxaparin Sodium 40 mg 11/10/24 09:00 11/10/24 08:57 Enoxaparin 40 Mg/0.4 Ml Syringe SUB-Q 40 mg DAILY RICK Administration Guaifenesin/Dextromethorphan 1 tab 11/09/24 09:00 11/10/24 08:57 Guaifenesin 600 Mg/Dextromethorphan 30 Mg Sr Tab 12 Hr PO 1 tab Q12HR RICK Administration Ceftriaxone Sodium 2 gm in 100 mls @ 200 mls/hr 11/09/24 10:00 11/10/24 09:14 Rocephin 2 Gm/Ns 100 Ml IVPB 200 mls/hr Q24H RICK Administration Azithromycin 500 mg in 250 mls @ 250 mls/hr 11/09/24 18:00 11/09/24 17:27 Zithromax IVPB 250 mls/hr Q24H RICK Administration Levetiracetam 500 mg 11/09/24 09:00 11/10/24 08:57 Levetiracetam 500 Mg Tablet PO 500 mg BID RICK Administration Pantoprazole Sodium 40 mg 11/09/24 09:00 11/10/24 08:57 Pantoprazole 40 Mg Tablet PO 40 mg DAILY RICK Administration Sodium Chloride 6 ml 11/10/24 05:00 11/10/24 04:51 Sodium Chlor 3% 15 Ml Neb (Respiratory Therapy) INHALATION 11/12/24 05:01 6 ml DAILY@0500 RICK Administration Radiology Results: ITS Impressions Chest CT 11/08/24 17:53 IMPRESSION: Multifocal consolidation, likely infectious in origin, for which follow-up to resolution is recommended as a malignancy may have a similar appearance. Thoracentesis Ultrasound 11/09/24 12:10 IMPRESSION: 1. Successful ultrasound-guided thoracentesis yielding 200 mL of yellow fluid. Chest X-Ray 11/10/24 06:14 Impression: Large right pleural effusion with probable element of right lung atelectasis. Mild central congestive change in the left lung. Labs Labs: Laboratory Results - last 24 hr 11/09/24 11/10/24 11:30 05:14 WBC 12.1 H RBC 3.70 L Hgb 11.2 L Hct 35.3 L MCV 95.4 MCH 30.3 MCHC 31.7 L RDW 13.7 Plt Count 196 MPV 10.9 H Immature Gran % (Auto) 0.8 H Neut % (Auto) 76.8 H Lymph % (Auto) 14.2 L [place] % (Auto) 6.5 Eos % (Auto) 1.3 Baso % (Auto) 0.4 Lymph # (Auto) 1.71 [place] # (Auto) 0.8 H Eos # (Auto) 0.2 Baso # (Auto) 0.1 Abs Immat Gran (auto) 0.10 H Absolute Neuts (auto) 9.3 H Absolute Nucleated RBC 0.000 Nucleated RBC % 0.0 Sodium 142 Potassium 3.7 Chloride 109 H Carbon Dioxide 30 Anion Gap 3 L BUN 10 Creatinine 0.72 Estim Creat Clear Calc 84 Estimated GFR > 60 Glucose 91 Calcium 8.1 L Phosphorus 2.8 Magnesium 1.9 Total Bilirubin 0.3 AST 24 ALT 27 Alkaline Phosphatase 109 Total Protein 6.0 L Albumin 3.0 L Pleural Fluid Source Pleural fluid Pleural Color Yellow Pleural Appearance Turbid Pleural RBC 3000 Pleural Nuc Cells 08374 H Pleural Neutrophils 57 H Pleural Lymphocytes 8 Pleural Macrophages 22 Pleural Mesothelial 13 Quality VTE Prophylaxis VTE prophylaxis: pharmacologic ordered
[2024-11-10] MEDS: AZITHROMYCIN 500 MG/NS 250 ML 500 MG/250 ML BAG 250 MG IVPB (18:05)
[2024-11-11] VITALS (9 sets, daily range): BP systolic 151; BP diastolic 60; PULSE 74–93; RESP 18–20; TEMP 36.8; O2SAT 89–97
--- NOTE | 2024-11-11 03:25 | PCRCNOTE ---
out of administration timeframe for 0200 breathing treatment. See next scheduled breathing tx at 0800.
--- NOTE | 2024-11-11 05:18 | PCRCNOTE ---
attempted to wake patient up for 0500 sputum induction. Patient would not wake and acknowledge therapist when therapist aroused him.
[2024-11-11] MEDS: levETIRAcetam 500 MG TABLET PO (09:04)
[2024-11-11] MEDS: ASPIRIN 81 MG ENTERIC TABLET PO (09:04)
[2024-11-11] MEDS: PANTOPRAZOLE 40 MG TABLET PO (09:04)
[2024-11-11] MEDS: guaiFENesin 600 MG/DEXTROMETHORPHAN 30 MG SR TAB 12 HR 1 TAB PO (09:05)
[2024-11-11] MEDS: ENOXAPARIN 40 MG/0.4 ML SYRINGE SUB-Q (09:05)
[2024-11-11] MEDS: IPRATROPIUM 0.5 MG/ALBUTEROL SULFATE 2.5 MG AMPUL.NEB 3 ML INHALATION ×2 (09:15→14:26)
[2024-11-11] MEDS: AMOXICILLIN/CLAVULANATE K 875-125 MG TAB 1 TABLET PO (11:20)
--- NOTE | 2024-11-11 11:56 | PCRCNOTE ---
Home O2 eval done, no home O2 needed at rest or activity. Encourage deep breathing. Pt has O2 in home for nocturnal use.
--- NOTE | 2024-11-11 13:29 | P.DS_ITS ---
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 The patient is only oriented did name due to prior history of traumatic brain injury. He is unable to provide any history. Family reports patient has been coughing from month and they ?had enough of it?. He has had increasing generalized weakness. His family members have been having trouble taking care of him. He is on oxygen at night due to suspected sleep apnea. On initial arrival to the ER patient was afebrile but hypotensive with systolic blood pressures in the 70s. Patient remained hypotensive despite receiving 30 mL/kilos bolus. Patient has a history of tending towards the bradycardic state. And he remained bradycardic despite hypotension. However he is on home beta- blockers. A left subclavian was placed by ER provider and repeat chest x-ray after central line placement demonstrated significant increased opacification of the right hemithorax suspicious for increasing pleural effusion likely moderate. Patient remains stable on 2 L nasal cannula. Patient was admitted to the ICU for pressor support. Patient was initially managed in ICU for septic shock, stabilized and was off pressors and transferred to the floor. cultures negative and today patient is alert and tolerating diet, on room air. Discharged on 5 more days of Augmentin and 3 more days of Azithromycin. F/u with PCP in 3-5 days. Time Spent with Patient Time attestation: Total time spent providing and/or coordinating discharge services: DS: Data Data Completed and Pending Completed studies during hospitalization: Pending at discharge 11/09/24 07:58 Cytology [PTH] Routine Labs on day of discharge: Preliminary micro results at discharge 11/09/24 11:30 Acid Fast Bacilli Culture - Preliminary Pleural Fluid 11/10/24 05:14 Sputum Culture - Preliminary Sputum 11/09/24 11:31 Anaerobic Culture - Preliminary Pleural Fluid Aerobic Culture - Preliminary 11/08/24 16:53 Blood Culture - Preliminary Blood 11/08/24 17:16 Blood Culture - Preliminary Blood Discharge Plan Discharge Attending physician on discharge: Dipak Meza Consulting providers: Remy Woodard Discharging Clinician: Dipak Meza Anticipated Discharge Date/Time: 11/11/24 13:25 Patient Disposition: Home Activity: as tolerated Diet: as tolerated and regular Patient Instructions: Antibiotic Form, Heart Failure (DC) Patient Language: Serbian Stand Alone Forms: General Discharge Information Follow-up/Referrals: Abner,Tabatha Hamlin [Primary Care Provider] - (F/u with PCP in 3-5 days ) Discharge Medications: New azithromycin [Zithromax] 250 mg Tablet 500 mg PO DAILY@1200 3 Days Qty: 3 0RF amoxicillin-pot clavulanate 875-125 mg tablet 1 tablet PO Q12H 5 Days Qty: 10 0RF Continued losartan 50 mg tablet 50 mg PO DAILY carvedilol 6.25 mg tablet 6.25 mg PO BID levetiracetam 500 mg tablet 500 mg PO BID aspirin 81 mg tablet,delayed release (DR/EC) 81 mg PO DAILY pantoprazole 40 mg tablet,delayed release (DR/EC) 40 mg PO DAILY furosemide 20 mg tablet 20 mg PO DAILY PRN (Reason: Edema) Mucinex DM 600 mg PO Q12H atorvastatin 40 mg tablet 40 mg PO QPM cholecalciferol (vitamin D3) 50 mcg (2,000 unit) capsule 2,000 unit PO DAILY coenzyme Q10 [CoQ-10] 100 mg capsule 100 mg PO DAILY zinc 50 mg tablet 50 mg PO DAILY Multivitamin 50 Plus Tablet 1 tablet PO DAILY biotin 5,000 mcg tablet,disintegrating 5,000 mcg PO DAILY Probiotic 15 billion cell capsule 1 cap PO DAILY docusate sodium 100 mg capsule 100 mg PO TID Date of admission: 11/08/24 22:06 Primary Care Provider: AbnerBoubacar Admitting Provider: Gerri Weiss Attending physician on admission: Dipak Meza Condition: Serious
[2024-11-11] MEDS: AZITHROMYCIN 250 MG TABLET 500 MG PO (14:11)
[2024-11-12 16:13] LABS: Pneumococcal Antigen Urine DETECTED
[2024-11-17 03:52] LABS: Albumin Pleural Fluid 1.8 g/dL; Amylase, Pleural Fluid 17 U/L; Glucose Pleural Fluid 135 mg/dL; LDH Pleural Fluid 3755 U/L; Total Protein Pleural Fluid <3.0 g/dL
[2024-11-18 18:59] LABS: Legionella pneumophila Ag Ur NOT DETECTED
== END 2024-11-11 17:09 | disposition home or self-care (01) | DRG 871 ==
LOC: ANHED 19:09 → ANHICU 22:37 → ANHIMU 11-09 00:22 → ANHICU 11-09 00:24 → ANHIMU 11-10 06:18
PROVIDERS: Internal Medicine; Physician Assistant; Student in an Organized Health Care Education/Training Program; Admitting Provider Internal Medicine; Emergency Provider Emergency Medicine; PCP Internal Medicine Infectious Disease; Visit Provider Internal Medicine
DX: A41.9 Sepsis, unspecified organism (principal); J18.9 Pneumonia, unspecified organism; R65.21 Severe sepsis with septic shock; J96.01 Acute respiratory failure with hypoxia; J90 Pleural effusion, not elsewhere classified; Z87.820 Personal history of traumatic brain injury; E55.9 Vitamin D deficiency, unspecified; E78.5 Hyperlipidemia, unspecified; G40.909 Epilepsy, unspecified, not intractable, without status epilepticus; I10 Essential (primary) hypertension; K21.9 Gastro-esophageal reflux disease without esophagitis; Z20.822 Contact with and (suspected) exposure to COVID-19; Z79.82 Long term (current) use of aspirin; Z87.891 Personal history of nicotine dependence
CPT/HCPCS: 32555; 36415; 36556; 71045; 71046; 71250; 80053; 81001; 82040; 82042; 82150; 82945; 82947; 82948; 83605; 83615; 83735; 83986; 84100; 84145; 84155; 84157; 84311; 84478; 85025; 85027; 85610; 85730; 86738; 87015; 87040; 87070; 87075; 87102; 87116; 87205; 87206; 87449; 87637; 87641; 87899; 88108; 88305; 88342; 89051; 93005; 94618; 94640; 96361; 96365; 96366; 96367; 97161; 97166; 99285; A9270; C1751; J0456; J0696; J1650; J7030; J7040; J7120

== ENCOUNTER 2024-12-10 12:19 | Outpatient (CLI) | payer MEDICARE, MEDICAID, SELFPAY ==
--- NOTE | ~2024-12-10 | CT_ITS ---
CT Scan of the Chest without Contrast: Clinical Indication: Pneumonia Technique: Contiguous sections were acquired throughout the chest without intravenous contrast. Dose reduction technique was used on this scan by utilizing automated exposure control and iterative recon struction technique. The dose-length product (DLP) was 240.32 mGy-cm. COMPARISON: 11/08/2024 Findings: There is no evidence of any significant mediastinal, hilar or axillary lymphadenopathy. The mediastin al soft tissues appear normal. There is no evidence of pleural or pericardial effusion. Right middle lobe and right lower lobe consolidation seen on prior exam is markedly improved, with mi ld residual pneumonia or atelectatic changes present. Left lung clear. Images through the upper abdomen reveal no abnormalities. Stable compression fractures of T9 and T12. Impression: Marked interval improvement in previously identified pneumonia in the right middle and lower lobes. T here is mild residual pneumonia and/or atelectatic change/scarring. Reviewed, dictated and finalized at [facility]. Impression: Marked interval improvement in previously identified pneumonia in the right mid dle and lower lobes. There is mild residual pneumonia and/or atelectatic change /scarring.
--- OUTSIDE RECORDS SUMMARY | 2024-12-10 12:25 | XMS_ITS | Data Portability ---
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 of shortness of breath: 2019Duration of shortness of breath: 6 yearsCondition of shortness of breath: stableTiming of shortness of breath: noneFrequency: once a weekLimits activities: yesAggravating factors: walkingAlleviating factors: restModified [facility] [place] (mMRC) Dyspnea Scale - Grade 3Grade 0 [...] noEdema: no Environmental exposures:Nicotine smoke: 1 ppd 1016-0457 = 40 pack yearsPaint: noDye: noDust mites: [...] slight chance of dozing. Rylan Rollins MD [address] [place] [address], [place] [address], [place], [address], [facility] [employer] 11/15/2024 13:14:49
--- OUTSIDE RECORDS SUMMARY | 2024-12-10 12:25 | XMS_ITS | Data Portability ---
Author Organization [facility] Address [address] [place] [address] Care Team Providers Care Rehanger Name Role Phone ANA HERNANDEZ [employer] Teacher GIOVANNI OSULLIVAN Neurologist BOUBACAR MARSHALL Primary Care Provider DEEPTI BURLESON Sales Assistant [employer] Assessment Encounter Date Assessment Date Assessment LastModified by Organization Details LastModified Time 07/15/2024 07/15/2024 The xray report brought in by the patient suggests an abnormality around the Navicular?, soft tissue swelling and an effusion. The NIXON bandage was reapplied Podiatry oavicky Not available 07/15/2024 13:55:16 Plan of Treatment Reminders Order Date Submit Date Provider Last Modified By Organization Details Last Modified Time Details Appointments ANY 15 2024 01:30P M Júnior San DPM Not available Not available Not available ANY 15 2024 02:00P Bonita Marshall MD Not available Not available Not available Lab PSA, total, serum or plasma 2024 025 [facility], [address], [address], [place], [address], 12/01/2024 06:19:37 CBC 2024 025 [facility], [address], [address], [place], [address], 12/01/2024 06:19:38 basic metabo lic 1998 panel, serum or plasma 2024 025 [facility], [address], [place], [address], 12/01/2024 06:19:36 lipid panel, serum 2024 025 [facility], [address], [address], [place], [address], 09/08/2024 06:25:33 lipid panel, serum 2023 024 [facility], [address] [facility] [address], [address], [place], [address], 05/27/2024 06:22:40 basic metabo lic 1998 panel, serum or plasma 2023 024 [facility], [address] [facility], [place], [address], 05/27/2024 06:22:41 CBC 2023 024 [facility], [address] [facility], [place], [address], 05/27/2024 06:22:43 Referral podiat rist referr al 2024 025 [facility], [address], [place], [address], 07/19/2024 14:31:56 Procedures None record ed. Surgeries None record ed. Imaging XR, foot, 3 or more view 2024 025 [facility] [address], [place], [address], 07/16/2024 15:22:43 Medication Orders atorva statin 40 mg tablet 2024 025 [facility], [address] [facility], [place], [address], 07/15/2024 13:00:51 Patient TargetsNo targets recorded. Patient Instructions Encounter Date Encounter Id Patient Instructions Last Modified By Organization Details Last Modified Time 05/25/2024 [id number] Accurate medication list needed 03/02/2024 CT scan A&P report from [facility] D/C summary from , please Fasting labs Cardiology follow up Follow up in 6 months and PRN oajao Not available 05/25/2024 19:01:40 07/15/2024 [id number] Urgent care report (Pending) Xray report (Pending) Start Atorvastatin Podiatry ERWIN, please FLP in 6 weeks Follow up as scheduled on 11/22/2024 and PRN oajao Not available 07/15/2024 13:55:56 11/24/2024 [id number] Labs Follow up i n 6 months Addendum Culture results from the pleural effusion needed from [facility] [email or web address] Not available 11/24/2024 19:55:46 Reason for Referral 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 Referral for Pain of left ankle joint Pain and swelling, left lateral malleolus and foot Referring Physician: Boubacar Marshall, Internal Medicine, Encounter Date: 07/15/2024 Results Created Date Observation Date Name Description Value Unit Range Abnormal Flag Note LastModifiedBy Organization Detail LastModifiedTime 05/26/2005/27/2024 LIPID PANEL cholesterol, total 252 mg/dL 100-19 9 above high normal Not Available [facility]) [address] [facility], [place], [address], 05/27/2024 06:22:40 05/26/20 24 05/27/2024 LIPID PANEL triglyceride s 142 mg/dL 0-149 Not Available [facility]) [address] [facility], [place], [address], 05/27/2024 06:22:40 05/26/20 24 05/27/2024 LIPID PANEL HDL cholesterol 53 mg/dL >39 Not Available [facility] [address] [facility], [place], [address], 05/27/2024 06:22:40 05/26/20 24 05/27/2024 LIPID PANEL VLDL cholesterol erika 26 mg/dL 5-40 Not Available [facility]) [address] [place], [address], 05/27/2024 06:22:40 05/26/20 24 05/27/2024 LIPID PANEL LDL chol calc ([facility]) 173 mg/dL 0-99 above high normal Not Available [facility] ([facility]) [address] [place], [address], 05/27/2024 06:22:40 05/26/20 24 05/27/2024 BASIC METAB OLIC PANEL (7) glucose - mg/dL Test not perfo rmed. Serum was in conta ct with cells when recei hellen which will make the resul t inacc urate . Not Available [facility] ([facility]) [address] [facility], [place], [address], 05/27/2024 06:22:41 05/26/20 24 05/27/2024 BASIC METAB OLIC PANEL (7) BUN 16 mg/dL 8-27 Not Available [facility] ([facility]) [address] [place], [address], 05/27/2024 06:22:41 05/26/20 24 05/27/2024 BASIC METAB OLIC PANEL (7) creatinine 1.11 mg/dL 0.76-1 .27 Not Available [facility] ([facility]) [address] [place], [address], 05/27/2024 06:22:41 05/26/20 24 05/27/2024 BASIC METAB OLIC PANEL (7) eGFR 72 mL/mi n/1.7 3 >59 Not Available [facility] ([facility]) [address] [place], [address], 05/27/2024 06:22:41 05/26/20 24 05/27/2024 BASIC METAB OLIC PANEL (7) BUN/creatini ne ratio 14 - Not Available [facility]) [address] [facility], [place], [address], 05/27/2024 06:22:41 05/26/20 24 05/27/2024 BASIC METAB OLIC PANEL (7) sodium 140 mmol/ L 134-14 4 Not Available [facility]) [address] [place], [address], 05/27/2024 06:22:41 05/26/2005/27/2024 BASIC METAB OLIC PANEL (7) potassium - mmol/ L Test not perfo rmed. Serum was in conta ct with cells when recei hellen which will make the resul t inacc urate . Not Available [facility] ([facility]) [address] [facility], [place], [address], 05/27/2024 06:22:41 05/26/20 24 05/27/2024 BASIC METAB OLIC PANEL (7) chloride 98 mmol/ L 96-106 Not Available [facility]) [address] [place], [address], 05/27/2024 06:22:41 05/26/20 24 05/27/2024 BASIC METAB OLIC PANEL (7) carbon dioxide, total 25 mmol/ L 20-29 Not Available [facility]) [address] [place], [address], 05/27/2024 06:22:41 05/26/20 24 05/26/2024 CBC, PLATE LET, NO DIFFE RENTI AL WBC 7.4 x10e3 /uL 3.4-10 .8 Not Available [facility]) [address] [place], [address], 05/27/2024 06:22:43 05/26/20 24 05/26/2024 CBC, PLATE LET, NO DIFFE RENTI AL RBC 4.71 x10e6 /uL 4.14-5 .80 Not Available [facility]) [address] [facility], [place], [address], 05/27/2024 06:22:43 05/26/20 24 05/26/2024 CBC, PLATE LET, NO DIFFE RENTI AL hemoglobin 14.4 g/dL 13.0-1 7.7 Not Available [facility]) [address] [facility], [place], [address], 05/27/2024 06:22:43 05/26/20 24 05/26/2024 CBC, PLATE LET, NO DIFFE RENTI AL hematocrit 44.1 % 37.5-5 1.0 Not Available [facility] [address] [facility], [place], [address], 05/27/2024 06:22:43 05/26/20 24 05/26/2024 CBC, PLATE LET, NO DIFFE RENTI AL MCV 94 fL 79-97 Not Available [facility]) [address] [place], [address], 05/27/2024 06:22:43 05/26/20 24 05/26/2024 CBC, PLATE LET, NO DIFFE RENTI AL MCH 30.6 pg 26.6-3 3.0 Not Available [facility]) [address] [place], [address], 05/27/2024 06:22:43 05/26/20 24 05/26/2024 CBC, PLATE LET, NO DIFFE RENTI AL MCHC 32.7 g/dL 31.5-3 5.7 Not Available [facility] [address] [place], [address], 05/27/2024 06:22:43 05/26/20 24 05/26/2024 CBC, PLATE LET, NO DIFFE RENTI AL RDW 12.2 % 11.6-1 5.4 Not Available [facility]) [address] [facility], [place], [address], 05/27/2024 06:22:43 05/26/20 24 05/26/2024 CBC, PLATE LET, NO DIFFE RENTI AL platelets 212 x10e3 /uL 150-45 0 Not Available [facility]) [address] [facility], [place], [address], 05/27/2024 06:22:43 09/07/19 25 09/08/2024 LIPID PANEL cholesterol, total 118 mg/dL 100-19 9 Not Available [facility]) [address] [place], [address], 09/08/2024 06:25:33 09/07/19 25 09/08/2024 LIPID PANEL triglyceride s 94 mg/dL 0-149 Not Available [facility]) [address] [place], [address], 09/08/2024 06:25:33 09/07/19 25 09/08/2024 LIPID PANEL HDL cholesterol 48 mg/dL >39 Not Available [facility]) [address] [place], [address], 09/08/2024 06:25:33 09/07/19 25 09/08/2024 LIPID PANEL VLDL cholesterol erika 18 mg/dL 5-40 Not Available [facility]) [address] [place], [address], 09/08/2024 06:25:33 09/07/19 25 09/08/2024 LIPID PANEL LDL chol calc ([facility]) 52 mg/dL 0-99 Not Available [facility] [address] [place], [address], 09/08/2024 06:25:33 10/13/19 25 11/11/2024 Fungu s ident ified in [place] by Cultu re smear Smear [facility] Not Available Not Available 11/24/2024 12:23:25 10/13/19 25 11/11/2024 Fungu s ident ified in [place] by Cultu re culture Cultu re [facility] Not Available Not Available 11/24/2024 12:23:25 10/13/19 25 11/11/2024 Bacte karma ident ified in Speci men by Aerob e cultu re culture abnormal Cultu re (A) [facility] Not Available Not Available 11/24/2024 12:23:25 10/13/19 25 11/11/2024 Bacte karma ident ified in Speci men by Aerob e cultu re interpretati on and review of laboratory results ABNORM AL Not Available Not Available 12:23:25 11/30/19 25 12/01/2024 BASIC METAB OLIC PANEL (7) glucose 88 mg/dL 70-99 Not Available [facility]) [address] [place], [address], 12/01/2024 06:19:36 11/30/19 25 12/01/2024 BASIC METAB OLIC PANEL (7) BUN 13 mg/dL 8-27 Not Available [facility]) [address] [place], [address], 12/01/2024 06:19:36 11/30/19 25 12/01/2024 BASIC METAB OLIC PANEL (7) creatinine 0.96 mg/dL 0.76-1 .27 Not Available [facility]) [address] [place], [address], 12/01/2024 06:19:36 11/30/19 25 12/01/2024 BASIC METAB OLIC PANEL (7) eGFR 86 mL/mi n/1.7 3 >59 Not Available [facility]) [address] [facility], [place], [address], 12/01/2024 06:19:36 11/30/19 25 12/01/2024 BASIC METAB OLIC PANEL (7) BUN/creatini ne ratio 14 10-24 Not Available [facility]) [address] [facility], [place], [address], 12/01/2024 06:19:36 11/30/19 25 12/01/2024 BASIC METAB OLIC PANEL (7) sodium 141 mmol/ L 134-14 4 Not Available [facility] [address] [facility], [place], [address], 12/01/2024 06:19:36 11/30/19 25 12/01/2024 BASIC METAB OLIC PANEL (7) potassium 4.6 mmol/ L 3.5-5. 2 Speci men recei hellen hemol yzed. Value may be incre ased by hemol ysis. Clini erika corre latio n indic ated. Not Available [facility] ([facility]) [address] [facility], [place], [address], 12/01/2024 06:19:36 11/30/19 25 12/01/2024 BASIC METAB OLIC PANEL (7) chloride 101 mmol/ L 96-106 Not Available [facility] [address] [facility], [place], [address], 12/01/2024 06:19:36 11/30/19 25 12/01/2024 BASIC METAB OLIC PANEL (7) carbon dioxide, total 19 mmol/ L 20-29 below low normal Not Available [facility]) [address] [facility], [place], [address], 12/01/2024 06:19:36 11/30/19 25 11/30/2024 CBC, PLATE LET, NO DIFFE RENTI AL WBC 8.0 x10e3 /uL 3.4-10 .8 Not Available [facility]) [address] [facility], [place], [address], 12/01/2024 06:19:38 11/30/1911/30/2024 CBC, PLATE LET, NO DIFFE RENTI AL RBC 4.42 x10e6 /uL 4.14-5 .80 Not Available [facility]) [address] [facility], [place], [address], 12/01/2024 06:19:38 11/30/1911/30/2024 CBC, PLATE LET, NO DIFFE RENTI AL hemoglobin 13.5 g/dL 13.0-1 7.7 Not Available [facility] [address] [facility], [place], [address], 12/01/2024 06:19:38 11/30/1911/30/2024 CBC, PLATE LET, NO DIFFE RENTI AL hematocrit 42.2 % 37.5-5 1.0 Not Available [facility]) [address] [facility], [place], [address], 12/01/2024 06:19:38 11/30/1911/30/2024 CBC, PLATE LET, NO DIFFE RENTI AL MCV 96 fL 79-97 Not Available [facility]) [address] [place], [address], 12/01/2024 06:19:38 11/30/1911/30/2024 CBC, PLATE LET, NO DIFFE RENTI AL MCH 30.5 pg 26.6-3 3.0 Not Available [facility]) [address] [place], [address], 12/01/2024 06:19:38 11/30/1911/30/2024 CBC, PLATE LET, NO DIFFE RENTI AL MCHC 32.0 g/dL 31.5-3 5.7 Not Available [facility]) [address] [facility], [place], [address], 12/01/2024 06:19:38 11/30/19 25 11/30/2024 CBC, PLATE LET, NO DIFFE RENTI AL RDW 12.7 % 11.6-1 5.4 Not Available [facility]) [address] [facility], [place], [address], 12/01/2024 06:19:38 11/30/19 25 11/30/2024 CBC, PLATE LET, NO DIFFE RENTI AL platelets 265 x10e3 /uL 150-45 0 Not Available [facility]) [address] [facility], [place], [address], 12/01/2024 06:19:38 05/25/20 24 04/17/2024 XR, chest No observ ation record ed. [place] [address], [place], [address], 07/15/2024 12:50:11 06/01/20 24 03/02/2024 CT, abdom en + pelvi s, w/wo contr ast No observ ation record ed. [facility] [address] [place], [address], 07/15/2024 12:50:11 06/01/20 24 03/02/2024 CT, abdom en + pelvi s, w/wo contr ast No observ ation record ed. [facility] (Radiology) [address] [place], [address], 07/15/2024 12:50:11 06/01/20 24 11/20/2023 CT, head, w/o contr ast No observ ation record ed. [facility] [address] [place], [address], 07/15/2024 12:50:11 07/16/19 25 07/16/2024 XR, foot, 3 or more view No observ ation record ed. [facility] [address], [place], [address], 11/24/2024 16:16:50 Result Notes None recorded. Problems Name Problem SNOMED Code Status Onset Date Resolution Date Notes Provider Name and Address Organization Details Recorded Time Statin declined 829368405 Active 2018 Not Available [facility] 3 01:43:43 Degenerati on of cervical interverte bral disc 45162153 Active 2018 Not Available [facility] 3 01:43:43 Lacunar infarction 403335206 Active 2018 Not Available [facility] 3 01:43:43 Hiatal hernia 97200484 Active 2019 Not Available [facility] 3 01:43:43 Disorienta bob 62200512 Active Not Available [facility] 3 01:43:43 Urinary incontinen ce 007655299 Active 2020 Not Available [facility] 3 01:43:43 SARS-CoV-2 antigen vaccine declined 6335874865 Active 2020 Not Available [facility] 3 01:43:43 Impaired mobility 14351938 Active 2021 Not Available [facility] 3 01:43:43 Amnesia 73571381 Active 2020 Not Available [facility] 3 01:43:43 Generalize d onset epileptic seizure 437352969 Active 2020 Not Available [facility] 3 01:43:43 Abnormal gait 78048505 Active 2020 Not Available [facility] 3 01:43:43 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 231169475 Active 2020 Not Available [facility] 3 01:43:43 Aspiration pneumonia 465929699 Active Not Available [facility] 3 01:43:43 Seizure disorder 569674192 Active Not Available [facility] 3 01:43:43 Pneumonia 576927400 Active Not Available [facility] 3 01:43:43 Acute on chronic hypercapni c respirator y failure 0891284318463 Active Not Available [facility] 3 01:43:43 Leukocytos is 756409042 Active Not Available [facility] 3 01:43:43 Decreased cardiac ejection fraction 1079354127611 09 Active 2023 Boubacar Marshall MD Attn: Accounting ,[address] [place], [address] , [place] [facility] 4 15:27:46 Diastolic dysfunctio n 4823665 Active 2023 Boubacar Marshall MD Attn: Accounting ,[address] [place], [address] , [place] [facility] 4 15:28:30 Bilateral atheroscle rosis of arteries of lower limbs 5260381824867 9107 Active 2024 Júnior San DPM [address] [place], [address] , [place] [facility] 5 13:14:39 Onychogryp hosis 03289392 Active 2024 Júnior San DPM [address] [place], [address] , [place] [facility] 5 13:14:40 Traumatic brain injury 705693828 Active Not Available [facility] 3 01:43:43 Schneider's esophagus 300322579 Active 2020 Not Available [facility] 3 01:43:43 Seizure 89231948 Active Not Available [facility] 3 01:43:43 Impaired fasting glycemia 665099676 Active Not Available [facility] 3 01:43:43 Headache 59944630 Active Not Available [facility] 3 01:43:43 Benign hypertensi on 67977452 Active 2020 Not Available [facility] 3 01:43:42 Eruption 038658598 Active Not Available [facility] 3 01:43:43 Disorder of lipid metabolism 190444467 Active 2020 Boubacar Marshall MD Attn: Accounting ,[address] [place], [address] , [place] [facility] 4 13:43:02 Chronic headache disorder 862215765 Active 2016 Not Available [facility] 3 01:43:43 Problem Notes None recorded. Procedures Surgical History Date Name Laterality Status Provider Name and Address Organization Details Recorded Time 020 EGD completed Boubacar Marshall MD Attn: Accounting ,[address] [facility], [place], [address] , [place] [facility] 12/23/2019 13:34:54 020 EGD/Endoscopy completed Boubacar Marshall MD Attn: Accounting ,[address] [place], [address] , [place] [facility] 09/17/2019 08:37:52 019 Cerumen Removal completed Boubacar Marshall MD Attn: Accounting ,[address] [place], [address] , [place] [facility] 10/27/2018 10:52:48 017 colonoscopy completed Boubacar Marshall MD Attn: Accounting ,[address] [place], [address] , [place] [facility] 03/23/2020 10:23:49 Other completed Boubacar Marshall MD Attn: Accounting ,[address] [place], [address] , [place] [facility] 04/22/2016 10:24:18 ventriculoperitoneal shunt completed Boubacar Marshall MD Attn: Accounting ,[address] [place], [address] , [place] [facility] 03/19/2019 14:05:15 Imaging Results None recorded. Procedure Notes None recorded. Medical Equipment None Reported. Allergies Allergen ID Allergen Name Allergen Category Reaction Reaction Severity Criticality Documentation Date Start Date Code Code System Note Provider Name and Address Organization Details Recorded Time 932120 No known allergy (situatio n) Not available Not available Not available Not available 03/14/2022 30628 6003 SNOMED Boubacar Marshall MD Attn: Macie maciel,[address] [facility], [place], [address], [facility] 2 16:27:55 No known drug allergies Medications Name Sig Start Date Stop Date Status Note LastModified by Organization Details LastModified Time levofloxaci n 750 mg tabs 03/19 completed Not Available Not Available Not Available atorvastati n calcium 80 mg tabs 12/15 completed Not Available Not Available Not Available clindamycin hcl 300 mg caps 04/02 completed Not Available Not Available Not Available dexilant 30 mg cpdr One po daily 04/02 completed Not Available Not Available Not Available amoxicillin /clavulanat e potassium 875-125 mg tabs One po BID 12/15 completed Not Available Not Available Not Available doxycycline hyclate 100 mg tabs One po BID 12/15 completed Not Available Not Available Not Available ofloxacin 0.3 % soln 03/19 completed Not Available Not Available Not Available phenytoin sodium extended 100 mg caps 2 po daily 06/16 completed Not Available Not Available Not Available Prescriptio n - New 10/14 completed Not Available Not Available Not Available hydrocodone /acetaminop hen 10-325 mg tabs One po TID 02/01 completed Not Available Not Available Not Available ranitidine hydrochlori de 150 mg tabs One po BID 04/02 completed Not Available Not Available Not Available azithromyci n 250 mg tabs 10/29 completed Not Available Not Available Not Available prednisone 50 mg tabs One po daily 12/15 completed Not Available Not Available Not Available hydrochloro thiazide 12 mg caps 10/29 completed Not Available Not Available Not Available levetiracet am 250 mg tabs One po BID 03/23 completed Not Available Not Available Not Available hydrochloro thiazide 12.5 mg caps 06/16 completed Not Available Not Available Not Available gavilyte-g 236 gm solr 04/14 completed Not Available Not Available Not Available triamcinolo ne acetonide 0.025 % oint 06/16 completed Not Available Not Available Not Available hydrocodone /acetaminop hen 5-325 mgtabs PRN with headaches 09/21 completed Not Available Not Available Not Available proair hfa 108 (90 base) mcg/act aers 10/14 completed Not Available Not Available Not Available losartan 50 mg tablet Take 1 tablet every day by oral route as directed for 90 days. active Not Available Not Available No t Available Flomax 0.4 mg capsule Take 0.4 mg by oral route. 04/18 completed Not Available Not Available Not Available furosemide 10 mg/mL injection solution 40 mg by injection route. 04/07 completed Not Available Not Available Not Available atorvastati n 40 mg tablet TAKE 1 TABLET BY MOUTH ONCE DAILY AT BEDTIME active Not Available Not Available No t Available promethazin e-DM 6.25 mg-15 mg/5 mL oral syrup Take 5 mL every 4 hours by oral route as needed for 5 days. 09/21 completed Not Available Not Available Not Available atorvastati n 80 mg tablet TAKE ONE TABLET BY MOUTH ONCE DAILY 02/01 completed Not Available Not Available Not Available carvedilol 6.25 mg tablet Take 1 tablet twice a day by oral route as directed for 90 days. active Not Available Not Available No t Available ipratropium 0.5 mg-albutero l 3 mg (2.5 mg base)/3 mL nebulizatio n soln 3 mL by inhalatio n route. 04/10 completed Not Available Not Available Not Available ketoconazol e 2 % shampoo APPLY TO WET SCALP AND FACE, LEAVE ON FOR 3-4 MINUTES, THEN RINSE; THREE TIMES WEEKLY active Not Available Not Available No t Available clindamycin HCl 300 mg capsule Take 1 capsule every 8 hours by oral route as directed for 7 days. 04/02 completed Not Available Not Available Not Available azithromyci n 250 mg tablet TAKE 2 TABLETS BY MOUTH ONCE DAILY 11/24 completed Not Available Not Available Not Available benzonatate 200 mg capsule TAKE 1 CAPSULE BY MOUTH THREE TIMES DAILY NEEDED FOR 7 DAYS 11/24 completed Not Available Not Available Not Available levetiracet am 500 mg tablet TAKE 1 TABLET BY MOUTH TWICE DAILY active Not Available Not Available No t Available hydrocodone 5 mg-acetamin ophen 325 mg tablet Take 1 tablet twice a day by oral route. 10/29 completed Not Available Not Available Not Available Isovue-370 76 % intravenous solution 100 mL by intraven. route. 04/06 completed Not Available Not Available Not Available prednisone 20 mg tablet Take 2 tablets every day by oral route before meals for 5 days. 04/18 completed Not Available Not Available Not Available clonazepam 0.5 mg tablet TAKE 1 TABBY MOUTH 15 MINUTES BEFORE THE MRI 03/26 completed Not Available Not Available Not Available clobetasol 0.05 % topical cream APPLY A THIN LAYER TO THE back of the hands BY TOPICAL ROUTE 2 TIMES PER DAY 09/21 completed Not Available Not Available Not Available phenytoin sodium extended 100 mg capsule Take 2 capsules twice a day by oral route. 09/21 completed Not Available Not Available Not Available aspirin 81 mg tablet,isrrael yed release TAKE 1 TABLET BY MOUTH ONCE DAILY active Not Available Not Available No t Available triamcinolo ne acetonide 0.1 % topical cream APPLY TO HANDS AND FOREARMS THREE TIMES WEEKLY FOR RASH. ALSO APPLY TO RIGHT ARMPIT TWICE DAILY FOR 2 WEEKS FOR RASH active Not Available Not Available No t Available ofloxacin 0.3 % ear drops INSTILL 10 DROPS (1.5 MG) INTO AFFECTED EAR(S) BY OTIC ROUTE 2 TIMES PER DAY for 14 days 12/15 completed Not Available Not Available Not Available levetiracet am 250 mg tablet 03/23 completed Not Available Not Available Not Available piperacilli n-tazobacta m 3.375 gram intravenous solution 3.375 g by intraven. route. 04/07 completed Not Available Not Available Not Available amlodipine 10 mg tablet Take 1 tablet by mouth once daily 05/26 completed Not Available Not Available Not Available dextrose 5 % and 0.9 % sodium chloride intravenous solution 1000 mL by intraven. route. 04/10 completed Not Available Not Available Not Available pantoprazol e 40 mg tablet,isrrael yed release TAKE 1 TABLET BY MOUTH ONCE DAILY active Not Available Not Available No t Available ferrous sulfate 325 mg (65 mg iron) tablet Take 1 tablet every day by oral route as directed for 30 days. 09/15 completed Not Available Not Available Not Available hydrochloro thiazide 12.5 mg capsule Take 12.5 mg by oral route. 05/30 completed Not Available Not Available Not Available triamcinolo ne acetonide 0.025 % topical ointment Apply BID to the rash on the back of the hands for 2 weeks 09/21 completed Not Available Not Available Not Available aspirin 81 mg chewable tablet Chew 1 tablet every day by oral route. 05/26 completed Not Available Not Available Not Available folic acid 1 mg tablet TAKE 1 TABLET BY MOUTH ONCE DAILY DIRECTED FOR 30 DAYS 09/15 completed Not Available Not Available Not Available hydralazine 50 mg tablet TAKE 1 TABLET BY MOUTH THREE TIMES DAILY 03/14 completed Not Available Not Available Not Available hydrochloro thiazide 25 mg tablet 25 mg by oral route. 04/07 completed Not Available Not Available Not Available furosemide 20 mg tablet TAKE 1 TABLET BY MOUTH ONCE DAILY NEEDED active Not Available Not Available No t Available sodium chloride 0.9 % intravenous solution 100 mL by intraven. route. 04/10 completed Not Available Not Available Not Available levofloxaci n 750 mg tablet TAKE 1 TABLET BY MOUTH ONCE DAILY 08/08 completed Not Available Not Available Not Available albuterol sulfate HFA 90 mcg/actuati on aerosol inhaler 2 puffs inhaled Q 6 hours PRN with SOB (Generic ProAir) active Not Available Not Available No t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 Reginald Rushing 11/24/2024 2 [place] OR MEDICARE REPLACEMENT PRIMARY) Reginald Rushing [id number] Reginadl Rushing Notes Date Note Type Note Provider Name and Address Organization Details Recorded Time 05/25/2024 text/html Here with his brother and sister in law The purpose for the visit is we went to the ER He was diagnosed with COVID at home and he was admitted to for 5 days In the interim, he has also been following up with the urologist 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 Boubacar Marshall MD Attn: [address] [place], [address], [facility] 05/25/2024 19:02:19 07/15/2024 text/html AnkleReported bypatient.Location: left Quality:aching Severity:mild Duration:6 days Timing:acute Context:fall Alleviating Factors:elevation Aggravating Factors:standing; walking; ROM; weightbearing Associated Symptoms:swelling Previous Surgery:none Prior Imaging:x ray Previous Injections:none Previous PT:none Work Related:no Working:noFootRepor bob bypatient.Location: left Quality:aching Severity:mild Duration:6 days Timing:acute Context:fall Alleviating Factors:elevation Aggravating Factors:walking; ROM; weightbearing Associated Symptoms:no weakness; no numbness; no tingling; no redness; no warmth; no ecchymosis; no catching/locking; no popping/clicking; no buckling; no grinding; no instability; no radiation down leg; no drainage; no fever; no chills; no weight loss; no change in bowel/bladder habits;swelling Previous Surgery:none Prior Imaging:x ray Previous Injections:none Previous PT:none Work Related:no Working:no Here with his brother and sister in law We went to urgent care and they just told us to follow up with his PCPHe fell Mr Haile was found on the floor, he must have had a fall on 07/08/2025, he was seen at urgent care on or around 07/12/2024 with an abnormal xray. Boubacar Marshall MD Attn: [address] [place], [address], [facility] 07/15/2024 13:56:18 07/16/2024 text/html patient presents today for initial office visit complaining that the day after Brad he fell and twisted his left foot and ankle. States that the next thing they woke up in his really bruised and swollen. He went to urgent care was evaluated and treated and then sent for an x-ray. They states that he had x-rays done on the left foot and that the x-ray was inconclusive whether he had a fracture or not. He is here to be evaluated. They also complaining that his nails are long and thick. States that they can not take care of his feet. Júnior San DPM [address] [place], [address], [facility] 07/16/2024 13:37:46 10/15/2024 text/html patient presents today for foot care. States that he has not has been having any problems. Júnior San DPM [address] [place], [address], [facility] 10/15/2024 13:15:19 11/24/2024 text/html Here with his brother and sister in law He's a lot better than he was?I am good Admitted 11/08/2024-11/11/2024 with septic shock and a pleural effusion. He had a thoracentesis and has followed up with his rn [employer] who has ordered a follow up CT scan of the chest. Boubacar Marshall MD Attn: [address]ing[address] [place], [address], [facility] 11/24/2024 19:58:57
== END 2024-12-10 12:20 | disposition home or self-care (01) ==
PROVIDERS: PCP Internal Medicine Infectious Disease; Visit Provider Internal Medicine Pulmonary Disease
DX: J18.9 Pneumonia, unspecified organism (principal)
CPT/HCPCS: 71250